=== PATIENT | male | born 1965 | race African-American/Black ===

== ENCOUNTER 2020-06-16 06:27 | Outpatient (REF) | payer MEDICARE, MEDICAID, SELFPAY ==
[2020-06-16 07:07] LABS: Basophils Percent Auto 0.5 % (0-2); Eosinophils Absolute Auto 0.2 X10*3/uL (0.0-0.4); Eosinophils Percent Auto 2.6 % (0-4); Hematocrit 39.4 % (42-52); Imm Gran Abs Auto 0.01 X10*3/uL (0.00-0.03); Imm Gran Pct Auto 0.2 % (0.0-0.4); Immature Retic Fraction 5.5 % (2.3-13.4); Lymphocytes Absolute Auto 1.7 X10*3/uL (1.2-4.9); Lymphocytes Percent Auto 29.3 % (20-40); MANUAL DIFF FLAG NO; Mean Corpuscular Hemoglobin 28.1 pg (27.0-33.0); Mean Corpuscular Volume 85.3 fL (80-98); Mean Platelet Volume 11.1 fL (9.4-12.4); Monocytes Absolute Auto 0.5 X10*3/uL (0.1-1.2); Monocytes Percent Auto 9.3 % (2-11); Neutrophils Absolute Auto 3.3 X10*3/uL (2.0-8.3); Neutrophils Percent Auto 58.1 % (45-73); Platelet Count 204 X10*3/uL (160-400); Red Blood Count 4.62 X10*6/uL (4.60-5.80); Red Cell Distribution Width 14.3 % (11.0-16.0); Retic HGB Equivalent 31.4 pg (30.0-35.0); Reticulocyte Percent 1.4 % (0.5-1.8); Reticulocytes Absolute 0.062 X10*6/uL (0.026-0.095); White Blood Count 5.7 X10*3/uL (4.8-10.8)
[2020-06-16 07:33] LABS: Alanine Aminotransferase 10 U/L (0-40); Albumin Level 4.1 g/dL (3.5-5.0); Alkaline Phosphatase 152 U/L (39-117); Anion Gap 10 (12-20); Aspartate Amino Transferase 12 U/L (5-37); Bilirubin Total 0.6 mg/dL (0.0-1.0); Blood Urea Nitrogen 15 mg/dL (9-16); Calcium 8.4 mg/dL (8.4-10.2); Carbon Dioxide 29 mmol/L (22-29); Chloride 107 mmol/L (96-108); Cholesterol 212 mg/dL; Estimated Glomerular Filt Rate > 60; Glucose Random 103 mg/dL (60-115); HDL Cholesterol 42 mg/dL; LDL Cholesterol Calculated 147 mg/dl; Potassium 3.7 mmol/l (3.3-5.1); Sodium 142 mmol/L (135-145); Total Protein 7.1 g/dL (6.5-8.0); Triglycerides 117 mg/dL
[2020-06-16 07:54] LABS: Free T4 (Free Thyroxine) 0.99 ng/dL (0.71-1.85); Thyroid Stimulating Hormone 1.56 mIU/mL (0.32-4.0)
[2020-06-16 14:55] LABS: Folate 11.1 ng/mL (> or = 4.0); Vitamin B12 664 pg/mL (200-900)
[2020-06-17 11:52] LABS: Creatinine Urine 41.57 mg/dL; Microalbumin Urine < 5.0 mg/L
== END 2020-06-16 06:28 | disposition home or self-care (01) ==
LOC: HO.LAB 06:27
PROVIDERS: Visit Provider Internal Medicine
DX: E78.00 Pure hypercholesterolemia, unspecified (principal); E11.65 Type 2 diabetes mellitus with hyperglycemia; G40.909 Epilepsy, unspecified, not intractable, without status epilepticus
CPT/HCPCS: 36415; 80053; 80061; 80185; 82043; 82607; 82746; 84439; 84443; 85025; 85045

== ENCOUNTER 2020-06-20 13:19 | Emergency (ER) | payer MEDICARE, MEDICAID, SELFPAY ==
--- NOTE | 2020-06-20 14:38 | PC.NURSE ---
SEEN BY PROVIDER AT THIS TIME
[2020-06-20 14:41] VITALS: BP 148/79; PULSE 89; RESP 16; TEMP 36.6; O2SAT 98; BMI 42.0
--- NOTE | 2020-06-20 14:52 | CT_ITS ---
EXAMINATION: CT HEAD WITHOUT CONTRAST CLINICAL INFORMATION: Left eye blurry vision for 3 days. COMPARISON: Multiple prior studies including CT head 07/13/2018, 02/17/2017, 03/16/2012 TECHNIQUE: Contiguous axial imaging was performed from the skull base to vertex without intravenous administration of contrast. Coronal and sagittal reformatted images are performed at CT scanner. This CT examination was performed using dose optimization techniques as appropriate, variously including the following: *Automated exposure control *Adjustment of mA and/or kV according to patient size (this includes techniques or standardized protocols for targeted exams where dose is matched to indication/reason for exam; i.e. extremities or head) *Use of iterative reconstruction technique DLP: 895 mGy-cm FINDINGS: Stable chronic changes of dilatation of the lateral ventricles, right greater than left. Dilatation of the third ventricle. Right parietal-occipital approach ventriculostomy catheter in place unchanged in position in the right lateral ventricle and terminating superiorly adjacent to the parenchyma. There is no evidence of acute intracranial hemorrhage or acute territorial infarction. No abnormal mass effect or midline shift is seen. Corado to white matter differentiation is well preserved. No extra-axial fluid collections are identified. No acute osseous abnormality. The mastoid air cells and visualized portions of the paranasal sinuses are well aerated. CT/CT head/brain wo con IMPRESSION: 1. No acute intracranial pathology. 2. Chronic changes of ventriculomegaly and ventricular shunt catheter in place.
--- NOTE | 2020-06-20 15:03 | ED_ITS ---
HPI - Eye Problem General Chief complaint: Eye Problems Stated complaint: eye pain, vision problem Time Seen by Provider: 06/20/20 14:52 Source: patient and family Mode of arrival: ambulatory Limitations: altered mental status History of Present Illness HPI Narrative: 54 year old male brought into ER by his sister today with 3 days h/o left eye blurriness. Denies any recent injury or trauma, no headaches. He does wear glasses, states when he puts them on now his vision is worse. His sister confirms last seizure activity was > 1 month ago, no vision changes then. MD chief complaint: vision change (LEFT eye blurriness) Onset (ago): day(s) (3) Onset description: unknown Duration: constant Location: left eye Eye Symptoms: blurry vision Place: home Mechanism: none Severity: moderate Severity scale (1-10): 6 Associated symptoms: none Treatments Prior to Arrival: none Related Data Home Medications Medication Instructions Recorded Confirmed cholecalciferol (vitamin D3) 1,250 1,250 mcg PO QWEEK 06/12/20 06/16/20 mcg (50,000 unit) capsule lacosamide 200 mg tablet 200 mg PO BID 06/12/20 06/16/20 meloxicam 15 mg tablet 15 mg PO DAILY 06/12/20 06/16/20 phenobarbital 97.2 mg tablet 97.2 mg PO DAILY PRN 06/12/20 06/16/20 Previous Rx's Medication Instructions Recorded cyanocobalamin (vitamin B-12) 1,000 mcg IM .once a month 90 Days 06/12/20 1,000 mcg/mL injection solution #3 ml phenytoin sodium extended 30 mg 90 mg PO TID 30 Days #270 cap 06/16/20 capsule Allergies Allergy/AdvReac Type Severity Reaction Status Date / Time No Known Allergies Allergy Verified 06/11/20 11:19 [No Known Allergies*] Review of Systems Constitutional: Constitutional: Reports fever(s) (subjective), Denies headache(s) and Denies weakness Eyes: Eyes: Reports as per HPI, Reports blurry vision (LEFT Eye) and Denies eye pain ENT: Reports Normal hearing present, Denies headache(s) and Denies sore throat Cardiovascular: Cardiovascular: Denies chest pain, Denies palpitations and Denies dyspnea Respiratory: Respiratory: Denies chest congestion, Denies cough, Denies dyspnea and Denies wheezing Gastrointestinal: Gastrointestinal: Denies abdominal pain, Denies change in bowel habits, Denies constipation, Denies diarrhea, Denies nausea and Denies vomiting Genitourinary: Genitourinary: Denies dysuria, Denies flank pain, Denies urinary frequency and Denies urinary incontinence Musculoskeletal: Musculoskeletal: Denies back pain, Denies myalgias and Denies muscle weakness Integumentary/Breasts: Skin/Breast: Denies change in hair, Denies pruritus, Denies erythema, Denies rash, Denies unusual bruising and Denies wounds Neurologic: Reports Normal hearing present, Reports Abnormal speech present, Denies headache(s), Denies memory loss, Denies paresthesias, Denies tremor(s) and Denies weakness Psychiatric: Psychiatric: Denies anxiety, Denies depression, Denies irritability and Denies memory loss Endocrine: Endocrine: Denies change in body appearance and Denies palpitations Hematologic/Lymphatic: Hematologic/Lymphatic: Denies easy bleeding, Denies easy bruising and Denies lymphadenopathy Allergic/Immunologic: Allergic/Immunologic: Denies wheezing PMFSH Past Medical History Medical History (Updated 06/20/20 @ 16:30 by NALDO Valencia) Aspiration into airway History of CVA (cerebrovascular accident) History of meningitis Hypercholesterolemia Mental and behavioral problem Obesity Obstructive sleep apnea Seizure disorder Thyroid nodule Tubular adenoma of colon Umbilical hernia Vitamin D deficiency Surgical History (Updated 06/11/20 @ 11:19 by Cheryl Javier [facility]) History of brain surgery History of lung surgery Social History Social History Advance Directives: No Advance Directives Information Provided: Yes Physical Exam Vital Signs: Vital Signs: Last Vital Signs Temp 97.9 F 06/20/20 14:41 Pulse 89 06/20/20 14:41 Resp 16 06/20/20 14:41 BP 148/79 H 06/20/20 14:41 Pulse Ox 98 06/20/20 14:41 Body Mass Index 42.0 Const: General: cooperative, healthy appearing, comfortable, no acute distres s, well developed, alert, awake and well groomed Nutritional Appearance: obese Orientation/consciousness: oriented to person Limitations: altered mental status and other limitations (Left sided weakness from CVA years ago) HENMT: Head: Yes normal to inspection Ears: hearing grossly normal bilaterally, external ears normal, TM's normal bilaterally, mastoids normal and other (FROM MASS NOTED AT TMJ AREA, TENDER TO PALPATION. NO ERYTHEMA, NO DRAINAGE) Eyes: Alignment and Position: alignment normal and position normal Periorbital: periorbital findings normal Eyelids: Yes eyelids normal Conjunctivae: conjunctivae normal Sclerae: sclerae normal Corneas: corneas normal Pupils: Other pupil findings (White pupil. Is reactive to iight) EOM: No Nystagmus present Neck: Neck: Yes normal visual inspection and Yes no lymphadenopathy Thyroid: Thyroid normal Lymphatic: no lymphadenopathy noted Chest: Chest palpation & inspection: normal inspection of the chest and normal palpation of entire chest wall Resp: Effort & Inspection: normal respiratory effort and able to speak in complete sentences Auscultation: clear to auscultation bilaterally, no crackles, no rales, no rhonchi and no wheezes Cardio: Rate: regular rate Rhythm: regular rhythm GI: Inspection: Yes normal to inspection : General: Yes no CVA tenderness Back/Spine/Pelvis: Back: no CVA tenderness Cervical Spine: normal cervical lordosis and cervical ROM normal Thoracic/Lumbar Spine: thoracic and lumbar spine normal to inspection Skin: General skin exam: no rashes or lesions noted Lesions: no lesions Rashes: no rashes Neuro: General: oriented to person Cranial nerves: Yes Normal hearing present and No Nystagmus present Cognition (Neuro): normal cognition Speech: Abnormal speech present Gait exam (Neuro): Normal gait present Motor exam (neuro): 5/5 motor strength present throughout Sensory Exam: Normal double simultaneous stimulation for sensation Extrem: General: Yes normal to inspection and Yes no pedal edema Psych: Appearance: grossly normal Mental Status: mental status grossly normal Speech and movement: Normal speech and movement present Affect: normal affect Attitude: cooperative Thought process: Normal thought process present Thought content: Normal thought content present Insight: Good insight present (Psych) Judgement: Good judgement present (Psych) Course Course Course Narrative: Reviewed case with my attending today, Dr. merino examined patient as well to confirm findings. Will page Dr. Guevara for consult. Reevaluation(s) Reevaluation #1: eye pressures done, pressure is 6, discussed with Dr. Marquze MDM - Eye Problem MDM Narrative Medical decision making narrative: 54 year old man comes into ER accompanied by his sister with a 3 days h/o left eye blurry vision Differential Diagnosis Differential diagnosis: Likely corneal abrasion Medical Records Attestation: I reviewed the patient's medical records. Imaging Data CT scan - head: Radiologist's impression: [address] [address] [address] Scan Report Signed Patient: Michael Lowery#: [id number] : 1965Acct:[id number] Age/Sex: 54 / MADM Date: 06/20/20 Loc: HO.ED Attending Dr: Ordering Physician: JALEN MELLO Date of Service: 06/20/20 Procedure(s): CT head/brain wo con Accession Number(s): [id number] cc: JALEN MELLO~ EXAMINATION: CT HEAD WITHOUT CONTRAST CLINICAL INFORMATION: Left eye blurry vision for 3 days. COMPARISON: Multiple prior studies including CT head 07/13/2018, 02/17/2017, 03/16/2012 TECHNIQUE: Contiguous axial imaging was performed from the skull base to vertex without intravenous administration of contrast. Coronal and sagittal reformatted images are performed at CT scanner. This CT examination was performed using dose optimization techniques as appropriate, variously including the following: *Automated exposure control *Adjustment of mA and/or kV according to patient size (this includes techniques or standardized protocols for targeted exams where dose is matched to indication/reason for exam; i.e. extremities or head) *Use of iterative reconstruction technique DLP: 895 mGy-cm FINDINGS: Stable chronic changes of dilatation of the lateral ventricles, right greater than left. Dilatation of the third ventricle. Right parietal-occipital approach ventriculostomy catheter in place unchanged in position in the right lateral ventricle and terminating superiorly adjacent to the parenchyma. There is no evidence of acute intracranial hemorrhage or acute territorial infarction. No abnormal mass effect or midline shift is seen. Corado to white matter differentiation is well preserved. No extra-axial fluid collections are identified. No acute osseous abnormality. The mastoid air cells and visualized portions of the paranasal sinuses are well aerated. CT/CT head/brain wo con IMPRESSION: 1. No acute intracranial pathology. 2. Chronic changes of ventriculomegaly and ventricular shunt catheter in place. Dictated By:TIMOTEO TRUJILLO MD Signed By:<Electronically signed by TIMOTEO TRUJILLO MD in OV>06/20/20 1529 DD/ 1452 TD/TT: Property Adjuster: SARAH Discharge Plan Discharge Clinical Impression: Leukocoria of left eye Patient Disposition: Home, Self-Care Instructions: Blurred Vision (ED) Additional Instructions: Follow up with Eye Doctor on Prescriptions: No Action cyanocobalamin (vitamin B-12) 1,000 mcg/mL solution 1,000 mcg IM .once a month 90 Days Qty: 3 RF: 1 Dilantin 30 mg capsule 90 mg PO TID 30 Days Qty: 270 RF: 0 meloxicam 15 mg tablet 15 mg PO DAILY RF: 0 cholecalciferol (vitamin D3) 1,250 mcg (50,000 unit) capsule 1,250 mcg PO QWEEK RF: 0 phenobarbital 97.2 mg tablet 97.2 mg PO DAILY PRNRF: 0 Vimpat 200 mg tablet 200 mg PO BID RF: 0 Referrals: Dick Betts [Physician] - 2 days (Call for appointment on Monday, Diagnosis Leukocoria)
--- NOTE | 2020-06-20 15:37 | PC.NURSE ---
CALL PLACED TO DR ACKERMAN ATTEMPTED TO CALL [facility] WITHOUT SUCESS AND CALL HIS CELL NUMBER PER NALDO MELLO.
--- NOTE | 2020-06-20 16:35 | PC.NURSE ---
NALDO MELLO SPOKE WITH DEXTER AND PT WILL F/U IN OFFICE ON MONDAY. NALDO MELLO CHECK PRESSURE OF LEFT EYE AND IT WAS 6.
== END 2020-06-20 16:56 | disposition home or self-care (01) ==
PROVIDERS: Emergency Provider Emergency Medicine; PCP Internal Medicine
DX: H44.532 Leucocoria, left eye (principal); H57.13 Ocular pain, bilateral; Z79.899 Other long term (current) drug therapy
CPT/HCPCS: 70450; 99283

== ENCOUNTER 2020-07-07 08:51 | Outpatient (REF) | payer MEDICARE, MEDICAID, SELFPAY ==
--- NOTE | 2020-07-07 09:06 | XR_ITS ---
EXAMINATION: XR LEFT ELBOW AND LEFT HAND CLINICAL INFORMATION: Pain. COMPARISON: None. TECHNIQUE: Left elbow 3 views. Left hand 3 views. FINDINGS: Left Elbow: There is no visible fracture, dislocation or subluxation. No joint effusion seen. The soft tissues are normal. Left Hand: There is mild reduction in the PIP and DIP joint spaces of all digits. The MCP joint space is preserved. There is mild extension deformity DIP joint 4th digit. Mild periarticular spurring is seen in the PIP joints 1st through 5th digits. No acute fracture or dislocation seen. There is a nondisplaced vertical fracture distal 5th metacarpal. The soft tissues are normal. XR/XR hand LT min 3V IMPRESSION: Nondisplaced fracture left distal 5th metacarpal. Mild degenerative changes PIP and DIP joints left hand. Unremarkable left elbow exam.
--- NOTE | 2020-07-07 09:06 | XR_ITS ---
EXAMINATION: XR LEFT ELBOW AND LEFT HAND CLINICAL INFORMATION: Pain. COMPARISON: None. TECHNIQUE: Left elbow 3 views. Left hand 3 views. FINDINGS: Left Elbow: There is no visible fracture, dislocation or subluxation. No joint effusion seen. The soft tissues are normal. Left Hand: There is mild reduction in the PIP and DIP joint spaces of all digits. The MCP joint space is preserved. There is mild extension deformity DIP joint 4th digit. Mild periarticular spurring is seen in the PIP joints 1st through 5th digits. No acute fracture or dislocation seen. There is a nondisplaced vertical fracture distal 5th metacarpal. The soft tissues are normal. XR/XR elbow LT min 3V IMPRESSION: Nondisplaced fracture left distal 5th metacarpal. Mild degenerative changes PIP and DIP joints left hand. Unremarkable left elbow exam.
== END 2020-07-07 08:52 | disposition home or self-care (01) ==
LOC: HO.XRAY 08:51
PROVIDERS: PCP Internal Medicine; Visit Provider Internal Medicine
DX: M79.89 Other specified soft tissue disorders (principal)
CPT/HCPCS: 73080; 73130

== ENCOUNTER 2020-07-27 13:05 | Outpatient (REF) | payer MEDICARE, MEDICAID, SELFPAY ==
--- NOTE | 2020-07-27 13:13 | US_ITS ---
EXAMINATION: DOPPLER ULTRASOUND LEFT UPPER EXTREMITY. CLINICAL INFORMATION: Swelling, status post fall COMPARISON: None TECHNIQUE: Doppler ultrasound left upper extremity. FINDINGS: The left internal jugular, subclavian, axillary, brachial, cephalic, basilic veins appear patent without evidence of thrombosis. There is normal vascular flow without evidence of filling defects. The visualized radial and ulnar veins appear patent with no evidence of thrombosis. US/US venous duplex UE LT IMPRESSION: No evidence of deep vein thrombosis in the left upper extremity.
== END 2020-07-27 13:06 | disposition home or self-care (01) ==
LOC: HO.US 13:05
PROVIDERS: Visit Provider Internal Medicine
DX: R60.0 Localized edema (principal); R09.89 Other specified symptoms and signs involving the circulatory and respiratory systems; M79.89 Other specified soft tissue disorders; W19.XXXA Unspecified fall, initial encounter
CPT/HCPCS: 93971

== ENCOUNTER 2020-09-20 14:47 | Emergency (ER) | payer MEDICARE, MEDICAID, SELFPAY ==
--- NOTE | ~2020-09-20 | CT_ITS ---
EXAMINATION: CT ABDOMEN AND PELVIS WITH CONTRAST CLINICAL INFORMATION: Right flank pain. Kidney stones? Gallstones? Appendicitis? COMPARISON: 11/01/2017 TECHNIQUE: Multidetector volumetric images were obtained from the superior aspect of the liver through the pubic symphysis following administration 85 mL of Omnipaque 350 intravenous contrast. Sagittal and coronal reformatted images were obtained on the technologist's workstation. Oral contrast: No This CT examination was performed using dose optimization techniques as appropriate, variously including the following: *Automated exposure control *Adjustment of mA and/or kV according to patient size (this includes techniques or standardized protocols for targeted exams where dose is matched to indication/reason for exam; i.e. extremities or head) *Use of iterative reconstruction technique DLP: 1048 mGy-cm FINDINGS: There is respiratory motion throughout the study limiting evaluation. There is streak artifact not only from the patient's arms across his abdomen but from the metal in his watch. LUNG BASES: There is atelectasis at the lung bases. Borderline cardiomegaly. LIVER, GALLBLADDER, AND BILIARY TREE: The liver is normal in size, shape, and attenuation. No focal hepatic lesion or biliary ductal dilatation is present. Gallbladder is collapsed. No biliary ductal dilatation. PANCREAS: Unremarkable. SPLEEN: Unremarkable. ADRENAL GLANDS: Unremarkable. KIDNEYS AND URETERS: Symmetric bilateral renal enhancement. No hydronephrosis. There is slight prominence of the ureters, right greater than left but no obstructing calculus seen. BLADDER: Unremarkable. GASTROINTESTINAL TRACT: Stomach and small bowel are nondilated. Normal appendix. No evidence of colitis or diverticulitis. ABDOMINAL WALL: Fat-containing bilateral inguinal hernias. Small fat-containing umbilical hernia. LYMPH NODES: Normal. VASCULAR: Unremarkable. PELVIC VISCERA: The prostate and seminal vesicles are unremarkable. OSSEOUS STRUCTURES: Multilevel degenerative changes with degenerative disc disease and multilevel facet arthropathy. Right greater than left degenerative changes of the sacroiliac joints. CT/CT abdomen pelvis w con IMPRESSION: No acute CT findings.
[2020-09-20 14:51] VITALS: BP 145/67; PULSE 82; RESP 16; TEMP 36.8; O2SAT 99; BMI 40.7
[2020-09-20 16:54] LABS: MANUAL DIFF FLAG NO
[2020-09-20 16:57] LABS: Basophils Absolute Auto 0.1 X10*3/uL (0.0-0.2); Basophils Percent Auto 0.7 % (0-2); Eosinophils Absolute Auto 0.2 X10*3/uL (0.0-0.4); Hematocrit 41.3 % (42-52); Hemoglobin 13.2 g/dl (14.0-18.0); Imm Gran Abs Auto 0.02 X10*3/uL (0.00-0.03); Imm Gran Pct Auto 0.2 % (0.0-0.4); Lymphocytes Absolute Auto 2.1 X10*3/uL (1.2-4.9); Lymphocytes Percent Auto 25.8 % (20-40); Mean Corpuscular Hemoglobin 27.7 pg (27.0-33.0); Mean Corpuscular Volume 86.6 fL (80-98); Monocytes Absolute Auto 0.7 X10*3/uL (0.1-1.2); Monocytes Percent Auto 8.6 % (2-11); Neutrophils Absolute Auto 4.9 X10*3/uL (2.0-8.3); Neutrophils Percent Auto 61.7 % (45-73); Platelet Count 221 X10*3/uL (160-400); Red Blood Count 4.77 X10*6/uL (4.60-5.80)
[2020-09-20 17:21] LABS: Alanine Aminotransferase 11 U/L (0-40); Alkaline Phosphatase 140 U/L (39-117); Anion Gap 13 (12-20); Aspartate Amino Transferase 13 U/L (5-37); Bilirubin Direct < 0.2 mg/dL (0.0-0.5); Bilirubin Total 0.2 mg/dL (0.0-1.0); Blood Urea Nitrogen 16 mg/dL (9-16); Calcium 8.4 mg/dL (8.4-10.2); Carbon Dioxide 27 mmol/L (22-29); Chloride 107 mmol/L (96-108); Creatinine Clr Calc Pharmacy 114.3; Estimated Glomerular Filt Rate > 60; Glucose Random 119 mg/dL (60-115); Lipase 35 U/L (8-78); Potassium 3.7 mmol/L (3.3-5.1); Sodium 143 mmol/L (135-145)
[2020-09-20 18:00] VITALS: BP 149/70; PULSE 70; RESP 16; O2SAT 99
[2020-09-20] MEDS: 0.9 % Sodium Chloride 1,000 ML 999 ML IV (18:30)
--- NOTE | 2020-09-20 19:04 | ED.ABDPAIN ---
HPI - Abdominal Pain General Chief Complaint: Abdominal Pain Stated Complaint: ABD PAIN Time Seen by Provider: 09/20/20 17:56 Source: patient Mode of arrival: ambulatory Limitations: no limitations History of Present Illness HPI narrative: Patient presents to ED for right flank/right lower back pain the past 3 days. Sister states patient has had this problem for years and always tell her just muscular. Sister was a derrick barge operator of patient denies patient having any nausea, vomiting, fever, chills, dysuria, hematuria, dizziness, any recent trauma. MD elicited complaint: flank pain Related Data Home Medications Medication Instructions Recorded Confirmed cholecalciferol (vitamin D3) 1,250 1,250 mcg PO QWEEK 06/12/20 09/18/20 mcg (50,000 unit) capsule lacosamide 200 mg tablet 200 mg PO BID 06/12/20 09/18/20 meloxicam 15 mg tablet 15 mg PO DAILY 06/12/20 09/18/20 phenobarbital 97.2 mg tablet 97.2 mg PO DAILY PRN 06/12/20 09/18/20 Previous Rx's Medication Instructions Recorded cyanocobalamin (vitamin B-12) 1,000 mcg IM .once a month 90 Days 06/12/20 1,000 mcg/mL injection solution #3 ml phenytoin sodium extended 30 mg 90 mg PO TID 90 Days #810 cap 09/14/20 capsule hydrocortisone 2.5 % topical cream 1 appl MI BID-QID PRN #30 g 09/18/20 with perineal applicator omeprazole 20 mg capsule,delayed 20 mg PO DAILY #30 cap 09/18/20 release meloxicam 15 mg PO DAILY PRN 30 Days #30 tab 09/20/20 Allergies Allergy/AdvReac Type Severity Reaction Status Date / Time No Known Allergies Allergy Verified 09/07/20 09:03 [No Known Allergies*] Review of Systems Review of Systems Yes all other systems are reviewed and are negative Constitutional: Reports as per HPI and Reports no additional constitutional complaints Eyes: Reports as per HPI and Reports no additional eye complaints Reports system reviewed and no additional complaints, except as documented and Reports as per HPI Cardiovascular: Reports as per HPI and Reports no additional cardiovascular complaints Respiratory: Reports as per HPI and Reports no additional respiratory complaints Gastrointestinal: Reports as per HPI and Reports no additional gastrointestinal complaints Comments: Right flank/back pain Genitourinary: Reports no additional male genitourinary complaints and Reports as per HPI Musculoskeletal: Reports no additional musculoskeletal complaints and Reports as per HPI Comments: Back pain Reports system reviewed and no additional complaints, except as documented and Reports as per HPI Psychiatric: Reports no additional psychiatric complaints and Reports as per HPI Physical Exam Vital Signs: Vital Signs: Last Vital Signs Temp 98.2 F 09/20/20 14:51 Pulse 77 09/20/20 21:08 Resp 16 09/20/20 21:08 BP 140/73 H 09/20/20 21:08 Pulse Ox 99 09/20/20 21:08 Body Mass Index 40.7 Const: General: cooperative, healthy appearing, comfortable, no acute distress, well developed, alert, awake and Physically active Orientation/consciousness: patient oriented x3 HENMT: Head: Yes normal to inspection, Yes No palpable skull fracture present, Yes normocephalic, Yes atraumatic, No abrasion, No Sharma's sign, No contusion, No cranial bruits, No hematoma, No laceration, No occipital foramen tenderness, No palpable skull fracture, No raccoon eyes, No scalp tenderness, No Temporal artery tenderness present and No periorbital ecchymosis Eyes: General: appearance normal, both eyes and all related structures Neck: Neck: Yes normal visual inspection, Yes full ROM, Yes no lymphadenopathy, Yes no meningeal signs, Yes supple and No tender Chest: Chest palpation & inspection: normal inspection of the chest and normal palpation of entire chest wall Resp: Effort & Inspection: normal respiratory effort and able to speak in complete sentences Auscultation: clear to auscultation bilaterally Cardio: Jugular venous distension: no JVD Heart sounds: S1 normal heart sound present and S2 normal heart sound present GI: Inspection: Yes normal to inspection and No abdominal wall ecchymosis Palpation (GI): Soft to palpation, not firm, nontender, no guarding and not rigid : General: No CVA tenderness and Yes no CVA tenderness Back/Spine/Pelvis: Back: no CVA tenderness, No CVA tenderness and back tenderness (Right lumbar) Skin: General skin exam: no rashes or lesions noted and elasticity normal Neuro: General: patient oriented x3, no meningeal signs and CN's II-XI intact bilaterally Cranial nerves: Yes CN's II-XII intact bilaterally Extrem: General: Yes normal to inspection and Yes full ROM Psych: Appearance: grossly normal, well kempt and not disheveled Course Course Course Narrative: Patient to have labs and abdominal CT to make sure there is no medical/surgical emergent etiology. Reevaluation(s) Reevaluation #1: Patient labs came back normal and at baseline. Patient CT scan does not show any acute findings. CT scan abdomen shows severe arthritis of the spine which contributes to patient's radiating right lower back flank pain. Patient given Tylenol and Flexeril for oral pain. Sister asked for refill of patient's meloxicam which was finished. History of tics patient usually takes meloxicam for his arthritic pain Time: 21:08 MDM - Abdominal Pain MDM Narrative Medical decision making narrative: Lumbar radicular passing Lab Data Result diagrams: 09/20/20 16:43 09/20/20 16:43 Labs: Lab Results 09/20/20 09/20/20 09/20/20 Range/Units 16:43 16:43 16:43 WBC 8.0 (4.8-10.8) X10*3/uL RBC 4.77 (4.60-5.80) X10*6/uL Hgb 13.2 L (14.0-18.0) g/dl Hct 41.3 L (42-52) % MCV 86.6 (80-98) fL MCH 27.7 (27.0-33.0) pg MCHC 32.0 (31.0-36.0) g/dl RDW 14.0 (11.0-16.0) % Plt Count 221 (160-400) X10*3/uL MPV 11.0 (9.4-12.4) fL Immature Gran % (Auto) 0.2 (0.0-0.4) % Neut % (Auto) 61.7 (45-73) % Lymph % (Auto) 25.8 (20-40) % [place] % (Auto) 8.6 (2-11) % Eos % (Auto) 3.0 (0-4) % Baso % (Auto) 0.7 (0-2) % Lymph # (Auto) 2.1 (1.2-4.9) X10*3/uL [place] # (Auto) 0.7 (0.1-1.2) X10*3/uL Eos # (Auto) 0.2 (0.0-0.4) X10*3/uL Baso # (Auto) 0.1 (0.0-0.2) X10*3/uL Abs Immat Gran (auto) 0.02 (0.00-0.03) X10*3/uL Absolute Neuts (auto) 4.9 (2.0-8.3) X10*3/uL Absolute Nucleated RBC 0.000 (0.0-0.012) X10*3/uL Nucleated RBC % (auto) 0.0 (0.0-0.2) /100WBC Hold Blue Top SEE NOTE Sodium 143 (135-145) mmol/L Potassium 3.7 (3.3-5.1) mmol/L Chloride 107 (96-108) mmol/L Carbon Dioxide 27 (22-29) mmol/L Anion Gap 13 (12-20) BUN 16 (9-16) mg/dL Creatinine 0.86 (0.5-1.4) mg/dL Estim Creat Clear Calc 114.3 Estimated GFR > 60 Random Glucose 119 H (60-115) mg/dL Calcium 8.4 (8.4-10.2) mg/dL Total Bilirubin 0.2 (0.0-1.0) mg/dL Direct Bilirubin < 0.2 (0.0-0.5) mg/dL AST 13 (5-37) U/L ALT 11 (0-40) U/L Alkaline Phosphatase 140 H (39-117) U/L Total Protein 7.0 (6.5-8.0) g/dL Albumin 4.0 (3.5-5.0) g/dL Lipase 35 (8-78) U/L Urine Color Urine Appearance Urine pH (5.0-8.0) Ur Specific [place] (1.005-1.025) Urine Protein (NEG-TRACE) MG/DL Urine Glucose (UA) (NEG) MG/DL Urine Ketones (NEG) MG/DL Urine Blood (NEG) Urine Nitrite (NEG) Ur Leukocyte Esterase (NEG) 09/20/20 Range/Units 19:38 WBC (4.8-10.8) X10*3/uL RBC (4.60-5.80) X10*6/uL Hgb (14.0-18.0) g/dl Hct (42-52) % MCV (80-98) fL MCH (27.0-33.0) pg MCHC (31.0-36.0) g/dl RDW (11.0-16.0) % Plt Count (160-400) X10*3/uL MPV (9.4-12.4) fL Immature Gran % (Auto) (0.0-0.4) % Neut % (Auto) (45-73) % Lymph % (Auto) (20-40) % [place] % (Auto) (2-11) % Eos % (Auto) (0-4) % Baso % (Auto) (0-2) % Lymph # (Auto) (1.2-4.9) X10*3/uL [place] # (Auto) (0.1-1.2) X10*3/uL Eos # (Auto) (0.0-0.4) X10*3/uL Baso # (Auto) (0.0-0.2) X10*3/uL Abs Immat Gran (auto) (0.00-0.03) X10*3/uL Absolute Neuts (auto) (2.0-8.3) X10*3/uL Absolute Nucleated RBC (0.0-0.012) X10*3/uL Nucleated RBC % (auto) (0.0-0.2) /100WBC Hold Blue Top Sodium (135-145) mmol/L Potassium (3.3-5.1) mmol/L Chloride (96-108) mmol/L Carbon Dioxide (22-29) mmol/L Anion Gap (12-20) BUN (9-16) mg/dL Creatinine (0.5-1.4) mg/dL Estim Creat Clear Calc Estimated GFR Random Glucose (60-115) mg/dL Calcium (8.4-10.2) mg/dL Total Bilirubin (0.0-1.0) mg/dL Direct Bilirubin (0.0-0.5) mg/dL AST (5-37) U/L ALT (0-40) U/L Alkaline Phosphatase (39-117) U/L Total Protein (6.5-8.0) g/dL Albumin (3.5-5.0) g/dL Lipase (8-78) U/L Urine Color YELLOW Urine Appearance CLEAR Urine pH 6.0 (5.0-8.0) Ur Specific [place] 1.020 (1.005-1.025) Urine Protein NEG (NEG-TRACE) MG/DL Urine Glucose (UA) NEG (NEG) MG/DL Urine Ketones 5 (NEG) MG/DL Urine Blood NEG (NEG) Urine Nitrite NEG (NEG) Ur Leukocyte Esterase NEG (NEG) Discharge Plan Discharge Clinical Impression: Degenerative disc disease, Arthritis Patient Disposition: Home, Self-Care Instructions: Lumbar Radiculopathy (ED), Degenerative Disc Disease (ED) Additional Instructions: Return to ED for worsening abdominal/back pain, urinary/bowel incontinence, fever, chills, chest pain, shortness of breath, dysuria, hematuria, or any other concerning symptoms. Prescriptions: New meloxicam 15 mg tablet 15 mg PO DAILY PRN (Reason: pain) 30 Days Qty: 30 RF: 0 No Action cyanocobalamin (vitamin B-12) 1,000 mcg/mL solution 1,000 mcg IM .once a month 90 Days Qty: 3 RF: 1 phenytoin sodium extended [Dilantin] 30 mg capsule 90 mg PO TID 90 Days Qty: 810 RF: 2 meloxicam 15 mg tablet 15 mg PO DAILY RF: 0 cholecalciferol (vitamin D3) 1,250 mcg (50,000 unit) capsule 1,250 mcg PO QWEEK RF: 0 phenobarbital 97.2 mg tablet 97.2 mg PO DAILY PRNRF: 0 Vimpat 200 mg tablet 200 mg PO BID RF: 0 hydrocortisone [Proctosol HC] 2.5 % cream with perineal applicator 1 appl MI BID-QID PRN (Reason: hemorrhoids) Qty: 30 RF: 0 omeprazole 20 mg capsule,delayed release(DR/EC) 20 mg PO DAILY Qty: 30 RF: 2 Referrals: Po,Veronique Alexander MD [Primary Care Provider] - 2 days (Abdominal CT scan does not show any emergent medical/surgical etiology. CT scan abdomen shows severe degenerative disc disease of the spine) Interventions: ED Discharge Assessment Last Done: 09/20/20 21:31 Discharge Date/Time: 09/20/20 21:33 Print Language: [place] [facility] Past Medical History Medical History Aspiration into airway History of CVA (cerebrovascular accident) History of meningitis Hypercholesterolemia Mental and behavioral problem Obesity Obstructive sleep apnea Seizure disorder Thyroid nodule Tubular adenoma of colon Umbilical hernia Vitamin D deficiency Surgical History History of brain surgery History of lung surgery Family History Family History Father Myocardial infarction Mother Myocardial infarction Maternal Uncle Prostate cancer Brother No problems noted. Sister No problems noted. Social History Social History Alcohol intake: never Smoked in Last 30 Days: No Use of substances other than those prescribed or required for medical reasons: No Advance Directives: No Advance Directives Information Provided: No
[2020-09-20 19:44] LABS: Glucose Urine UA NEG (NEG); Leukocyte Esterase Urine NEG (NEG); Nitrite Urine NEG (NEG); Urine Blood NEG (NEG); Urine Ketones 5 MG/DL (NEG); Urine Protein NEG (NEG-TRACE)
[2020-09-20 19:48] LABS: Appearance Urine CLEAR; Color Urine YELLOW
[2020-09-20] MEDS: iohexoL 350 MG/ML 100 ML INFUS..BTL IV (20:06)
--- NOTE | 2020-09-20 20:57 | PC.NURSE ---
report from dolores at 19:00. pt awake and alert, family member present at bedside.
[2020-09-20 21:08] VITALS: BP 140/73; PULSE 77; RESP 16; O2SAT 99
[2020-09-20] MEDS: Acetaminophen 325 MG TABLET 650 MG PO (21:09)
[2020-09-20] MEDS: Cyclobenzaprine HCl 5 MG TABLET PO (21:09)
== END 2020-09-20 21:33 | disposition home or self-care (01) ==
PROVIDERS: Physician Assistant; Emergency Provider Internal Medicine; PCP Internal Medicine
DX: M51.16 Intervertebral disc disorders with radiculopathy, lumbar region (principal); M47.26 Other spondylosis with radiculopathy, lumbar region
CPT/HCPCS: 36415; 74177; 80048; 80076; 81003; 83690; 85025; 96360; 99284; 99285; Q9967

== ENCOUNTER 2020-09-23 07:06 | Outpatient (REF) | payer MEDICARE, MEDICAID, SELFPAY | END 2020-09-23 07:07 | disposition home or self-care (01) | LOC: HO.LNP 07:06 | PROVIDERS: Visit Provider Internal Medicine | DX: R19.7 Diarrhea, unspecified (principal) | CPT/HCPCS: 87045; 87046 ==

== ENCOUNTER 2020-09-24 06:37 | Outpatient (REF) | payer MEDICARE, MEDICAID, SELFPAY ==
[2020-09-24 07:15] LABS: MANUAL DIFF FLAG NO
[2020-09-24 07:16] LABS: Basophils Percent Auto 0.5 % (0-2); Eosinophils Absolute Auto 0.2 X10*3/uL (0.0-0.4); Eosinophils Percent Auto 4.3 % (0-4); Hematocrit 40.1 % (42-52); Imm Gran Abs Auto 0.01 X10*3/uL (0.00-0.03); Imm Gran Pct Auto 0.2 % (0.0-0.4); Lymphocytes Absolute Auto 1.6 X10*3/uL (1.2-4.9); Lymphocytes Percent Auto 28.4 % (20-40); Mean Corpuscular HGB Conc 32.4 g/dl (31.0-36.0); Mean Corpuscular Hemoglobin 27.5 pg (27.0-33.0); Mean Platelet Volume 11.1 fL (9.4-12.4); Monocytes Absolute Auto 0.5 X10*3/uL (0.1-1.2); Monocytes Percent Auto 8.4 % (2-11); Neutrophils Absolute Auto 3.3 X10*3/uL (2.0-8.3); Neutrophils Percent Auto 58.2 % (45-73); Platelet Count 213 X10*3/uL (160-400); Red Blood Count 4.72 X10*6/uL (4.60-5.80); White Blood Count 5.6 X10*3/uL (4.8-10.8)
[2020-09-24 07:52] LABS: Alanine Aminotransferase 11 U/L (0-40); Albumin Level 4.2 g/dL (3.5-5.0); Alkaline Phosphatase 137 U/L (39-117); Anion Gap 13 (12-20); Aspartate Amino Transferase 14 U/L (5-37); Bilirubin Total 0.4 mg/dL (0.0-1.0); Blood Urea Nitrogen 17 mg/dL (9-16); Calcium 8.8 mg/dL (8.4-10.2); Carbon Dioxide 26 mmol/L (22-29); Chloride 108 mmol/L (96-108); Cholesterol 191 mg/dL; Estimated Glomerular Filt Rate > 60; Glucose Random 95 mg/dL (60-115); HDL Cholesterol 45 mg/dL; Iron 123 mcg/dL (45-160); LDL Cholesterol Calculated 123 mg/dl; Percent Iron Saturation 48 % (15-50); Potassium 3.7 mmol/L (3.3-5.1); Sodium 143 mmol/L (135-145); Total Iron Binding Capacity 255 mcg/dL (228-428); Total Protein 7.2 g/dL (6.5-8.0); Triglycerides 117 mg/dL; Unsaturated Iron Binding 132 ug/dL
[2020-09-24 08:13] LABS: Ferritin 179 ng/mL (20-250); Free T4 (Free Thyroxine) 0.78 ng/dL (0.71-1.85); Thyroid Stimulating Hormone 3.31 uIU/mL (0.32-4.0)
[2020-09-24 08:23] LABS: Phenytoin Dilantin 15.8 ug/mL (10.0-20.0)
[2020-09-24 08:50] LABS: Folate 10.9 ng/mL (> or = 4.0); Vitamin B12 771 pg/mL (200-900)
[2020-09-24 11:29] LABS: CDIFF Ag Negative (Negative); CDIFF Internal ctrl Dots and bkg OK (V); CDiff Toxin Negative (Negative)
[2020-09-24 13:55] LABS: Leukocytes Stool Qualitative NEGATIVE (NEGATIVE)
== END 2020-09-24 06:38 | disposition home or self-care (01) ==
LOC: HO.LAB 06:37
PROVIDERS: Visit Provider Internal Medicine
DX: R19.7 Diarrhea, unspecified (principal); D64.9 Anemia, unspecified; E78.00 Pure hypercholesterolemia, unspecified; G40.909 Epilepsy, unspecified, not intractable, without status epilepticus; E53.8 Deficiency of other specified B group vitamins
CPT/HCPCS: 36415; 80053; 80061; 80185; 82607; 82728; 82746; 83540; 84439; 84443; 85025; 87324; 87449; 89055

== ENCOUNTER 2020-11-28 03:31 | Emergency (ER) | payer MEDICARE, MEDICAID, SELFPAY ==
--- NOTE | ~2020-11-28 | XR_ITS ---
EXAMINATION: CHEST 1 VIEW CLINICAL INFORMATION: Cough, Covid positivity. COMPARISON: 01/21/2020. TECHNIQUE: An AP view of the chest is provided. FINDINGS: The cardiac silhouette is not enlarged. The mediastinal and hilar contours are unremarkable. There are neither pleural effusions nor pneumothoraces. There is faint patchy airspace opacification throughout both lungs. There is stable elevation to the right hemidiaphragm. The osseous structures are stable. XR/XR chest 1V IMPRESSION: Faint patchy nonspecific airspace opacification throughout both lungs.
[2020-11-28 03:37] VITALS: BP 125/78; PULSE 86; RESP 18; TEMP 38.7; O2SAT 100; BMI 30.7
--- NOTE | 2020-11-28 03:56 | PC.NURSE ---
sister and primary caregive with patient in familyroom chargemaster analyst and fransisco graves okayed.
[2020-11-28 04:40] VITALS: RESP 18
[2020-11-28 04:58] LABS: IDNOW Serial# 9DD0AD1C
[2020-11-28 05:02] LABS: COVID-19 Test Positive (Negative)
--- NOTE | 2020-11-28 05:31 | ED.URI ---
HPI - URI/Sore Throat General Chief Complaint: Upper Respiratory Symptoms Stated Complaint: Cough Time Seen by Provider: 11/28/20 03:57 Source: family Mode of arrival: wheelchair Limitations: no limitations History of Present Illness HPI Narrative: Patient comes to emergency room accompanied by his e commerce solution architect. Patient received his 1st dose of COVID on November 18. The e commerce solution architect states that the patient has had increased cough and tonight had fever. Patient states that he feels otherwise well, denies chest pain, no shortness of breath, only complaining of cough. MD elicited complaint: cough Related Data Home Medications Medication Instructions Recorded Confirmed meloxicam 15 mg tablet 15 mg PO DAILY 06/12/20 09/18/20 Previous Rx's Medication Instructions Recorded cyanocobalamin (vitamin B-12) 1,000 mcg IM .once a month 90 Days 06/12/20 1,000 mcg/mL injection solution #3 ml meloxicam 15 mg PO DAILY PRN 30 Days #30 tab 09/20/20 cholecalciferol (vitamin D3) 1,250 1,250 mcg PO QWEEK 84 Days #12 cap 10/30/20 mcg (50,000 unit) capsule hydrocortisone 2.5 % topical cream [address] BID-QID PRN #30 g 10/30/20 with perineal applicator lacosamide 200 mg tablet 200 mg PO BID 60 Days #120 tab 10/30/20 omeprazole 20 mg capsule,delayed 20 mg PO DAILY 30 Days #30 cap 10/30/20 release phenobarbital 97.2 mg tablet 97.2 mg PO DAILY PRN 90 Days #90 10/30/20 tab phenytoin sodium extended 30 mg 90 mg PO TID 90 Days #810 cap 10/30/20 capsule acetaminophen [Tylenol Arthritis 650 mg PO Q8H PRN #14 tab 11/28/20 Pain] azithromycin 250 mg PO DAILY 5 Days #5 tab 11/28/20 prednisone 50 mg PO DAILY #5 tab 11/28/20 Allergies Allergy/AdvReac Type Severity Reaction Status Date / Time No Known Allergies Allergy Verified 09/07/20 09:03 [No Known Allergies*] Review of Systems Review of Systems: Constitutional : No Weight loss, complaining of fever ENT/Mouth : No Hearing loss, No Ear Pain, No Nasal Congestion, No Sinus Pain, No Hoarseness, No sore throat, No Rhinorrhea, No Swallowing Difficulty Eyes: No Eye Pain, No Swelling, No Redness, No Foreign Body, No Discharge, No Vision Changes Cardiovascular : No Chest Pain, No SOB, No Dyspnea on Exertion, No Orthopnea, No Edema, No Palpitations Respiratory : Complaining of worsening cough, No Wheezing, No Smoke Exposure, No Dyspnea Gastrointestinal : No Nausea, No Vomiting, No Diarrhea, No Constipation, No abdominal Pain, No Hematochezia, No Melena Genitourinary : no irregular bleeding, No Dysuria, No Urinary Frequency, No Hematuria, No Urinary Incontinence, No Urgency, No Flank Pain, No Urinary Flow Changes, No Hesitancy Musculoskeletal : No joint pain, No Myalgias, No Joint Swelling Skin : No Skin Lesions, No rash Neuro : No Weakness, No Numbness, No Paresthesias, No Loss of Consciousness, No Dizziness, No Headache Psych : No Anxiety/Panic, No Depression, No SI/HI/AH/VH, No Social Issues, Heme/Lymph: No Bruising, No Bleeding,No Lymphadenopathy Endocrine : No Polyuria, No Polydipsia, No Temperature Intolerance [facility] Past Medical History Medical History Aspiration into airway History of CVA (cerebrovascular accident) History of meningitis Hypercholesterolemia Mental and behavioral problem Obesity Obstructive sleep apnea Seizure disorder Thyroid nodule Tubular adenoma of colon Umbilical hernia Vitamin D deficiency Surgical History History of brain surgery History of lung surgery Family History Family History Father Myocardial infarction Mother Myocardial infarction Maternal Uncle Prostate cancer Brother No problems noted. Sister No problems noted. Social History Social History (Updated 10/30/20 @ 12:45 by Vee Tamayo) Alcohol intake: never Smoking Status: Never smoker Advance Directives: No Physical Exam Vital Signs: Vital Signs: Last Vital Signs Temp 101.6 F H 11/28/20 03:37 Pulse 86 11/28/20 03:37 Resp 18 11/28/20 04:40 BP 125/78 11/28/20 03:37 Pulse Ox 100 11/28/20 03:37 Body Mass Index 30.7 Appearance: Alert. Oriented X3. No acute distress. Eyes: Pupils equal, round and reactive to light. ENT: Pharynx normal. Neck: Normal inspection. Neck supple. No lymph nodes noted. No crepitus CVS: Normal heart rate and rhythm. Pulses normal. Normal S1 and S2 Respiratory: No respiratory distress. Breath sounds normal. No Wheezing. No rales Abdomen: Soft and nontender. No rigidity. No distention. good BS x4 Skin: Skin warm and dry. Normal skin color. Normal skin turgor. Extremities: No lower extremity edema. Wheelchair-bound Neuro: Oriented X 3. No motor deficit. No sensory deficit. Moving all extermities. No slurred speech. Course Course Course Narrative: I discussed the x-ray with the patient and his e commerce solution architect. Patient will be started on oral antibiotics. For being discharged, patient will be walked and oxygen saturation measured. If patient does well, oxygen saturation remains above 90%, patient may be discharged home. Patient will be going home with antibiotics, prednisone and Tylenol. Our techs walk with the patient, his oxygen saturation remained at 97% on room air. Patient denies chest pain or shortness of breath. Patient ready for discharge MDM - URI/Sore Throat Lab Data Labs: Lab Results 11/28/20 Range/Units 04:40 COVID-19 ([facility]) Positive A (Negative) COVID-19 Clin Com See Note Imaging Data Chest x-ray: Radiologist's impression: The cardiac silhouette is not enlarged. The mediastinal and hilar contours are unremarkable. There are neither pleural effusions nor pneumothoraces. There is faint patchy airspace opacification throughout both lungs. There is stable elevation to the right hemidiaphragm. The osseous structures are stable. XR/XR chest 1V IMPRESSION: Faint patchy nonspecific airspace opacification throughout both lung Discharge Plan Discharge Clinical Impression: COVID-19 Patient Disposition: Home, Self-Care Instructions: COVID-19 (Coronavirus Disease 2019) (ED) Additional Instructions: you Need to be isolated for 14 days. Please follow-up with your primary care physician tomorrow. If you have any worsening or new symptoms, please return to the emergency room or call 911 Prescriptions: New azithromycin 250 mg tablet 250 mg PO DAILY 5 Days Qty: 5 RF: 0 prednisone 50 mg tablet 50 mg PO DAILY Qty: 5 RF: 0 acetaminophen [Tylenol Arthritis Pain] 650 mg tablet extended release 650 mg PO Q8H PRN (Reason: fever) Qty: 14 RF: 0 No Action cyanocobalamin (vitamin B-12) 1,000 mcg/mL solution 1,000 mcg IM .once a month 90 Days Qty: 3 RF: 1 meloxicam 15 mg tablet 15 mg PO DAILY PRN (Reason: pain) 30 Days Qty: 30 RF: 0 meloxicam 15 mg tablet 15 mg PO DAILY RF: 0 cholecalciferol (vitamin D3) 1,250 mcg (50,000 unit) capsule 1,250 mcg PO QWEEK 84 Days Qty: 12 RF: 0 hydrocortisone [Proctosol HC] 2.5 % cream with perineal applicator [address] BID-QID PRN (Reason: hemorrhoids) Qty: 30 RF: 0 Vimpat 200 mg tablet 200 mg PO BID 60 Days Qty: 120 RF: 1 omeprazole 20 mg capsule,delayed release(DR/EC) 20 mg PO DAILY 30 Days Qty: 30 RF: 2 phenobarbital 97.2 mg tablet 97.2 mg PO DAILY PRN (Reason: sleep) 90 Days Qty: 90 RF: 0 Dilantin 30 mg capsule 90 mg PO TID 90 Days Qty: 810 RF: 2
[2020-11-28] MEDS: Acetaminophen 325 MG TABLET 975 MG PO (05:32)
== END 2020-11-28 08:16 | disposition home or self-care (01) ==
PROVIDERS: Nurse Practitioner Family; Emergency Provider Emergency Medicine; PCP Internal Medicine
DX: U07.1 COVID-19 (principal); E78.00 Pure hypercholesterolemia, unspecified; Z86.73 Personal history of transient ischemic attack (TIA), and cerebral infarction without residual deficits
CPT/HCPCS: 36415; 71045; 87635; 99283; 99284

== ENCOUNTER 2020-12-07 07:35 | Outpatient (REF) | payer MEDICARE, MEDICAID, SELFPAY ==
[2020-12-07 08:02] LABS: COVID-19 Test Negative (Negative); IDNOW Serial# 55D5AD1C
== END 2020-12-07 07:36 | disposition home or self-care (01) ==
LOC: HO.LAB 07:35
PROVIDERS: Visit Provider Internal Medicine
DX: Z20.822 Contact with and (suspected) exposure to COVID-19 (principal)
CPT/HCPCS: 36415; 87635; C9803

== ENCOUNTER 2021-02-17 11:12 | Outpatient (REF) | payer MEDICARE, MEDICAID, SELFPAY ==
--- NOTE | ~2021-02-17 | US_ITS ---
EXAMINATION: US THYROID CLINICAL INFORMATION: Nontoxic multinodular goiter. COMPARISON: Ultrasound thyroid soft tissues 12/18/2019 and 12/25/2018. TECHNIQUE: Linear transducer grayscale and color Doppler examination with attention to the region of the thyroid. FINDINGS: SIZE: Measurements of the thyroid lobes and nodules are given in sagittal, anteroposterior and transverse dimensions respectively. Right Thyroid Lobe: 5.0 x 2.7 x 1.9 cm, volume 13.4 mL. Previously 4.6 x 2.2 x 1.6 cm, volume 8.2 mL. Parenchyma: The gland echotexture is heterogeneous. Thyroid vascularity is normal. Left Thyroid Lobe: 5.1 x 3.0 x 3.6 cm, volume 28.8 mL. Previously 5.0 x 2.7 x 2.7 cm, volume 19.2 mL. Parenchyma: The gland echotexture is heterogeneous. Thyroid vascularity is normal. Isthmus: 0.5 cm in maximum AP dimension. Previously 0.3 cm. Estimated total number of nodules greater than or equal to 1 cm: 2. [employer] nodules are described as follows: 1. Location: Right inferior. Size: 3.6 x 2.2 x 1.8 cm, volume 7.5 mL. Previously: 2.8 x 1.7 x 1.6 cm, volume 4.0 mL. Nodule characteristics: Composition: Mixed cystic and solid (1). Echogenicity: Hyperechoic (1). Shape: Taller than wide (3). Margins: Ill-defined (0). Echogenic Foci: None (0). ACR TI-RADS total points: 5 ACR TI-RADS category: 4 Significant change in size (>/= 20% in 2 dimensions and minimal increase of 2 mm or 50% or greater increase in volume): Yes Change in features: No Change in ACR TI-RADS risk category: No 2. Location: Left mid. Size: 4.2 x 2.6 x 3.4 cm, volume 19.4 mL. Previously: 4.0 x 2.6 x 3.1 cm, volume 16.9 mL. Nodule characteristics: Composition: Solid/almost completely solid (2). Echogenicity: Hyperechoic (1). Shape: Not taller than wide (0). Margins: Smooth (0). Echogenic Foci: None (0). ACR TI-RADS total points: 3 ACR TI-RADS category: 3 Significant change in size (>/= 20% in 2 dimensions and minimal increase of 2 mm or 50% or greater increase in volume): No Change in features: No Change in ACR TI-RADS risk category: No NODES: No lymphadenopathy is seen in the tissue surrounding the thyroid gland. US/US thyroid IMPRESSION: Enlarged heterogeneous thyroid gland. Interval increase in size in the right nodule. According to TI RADS criteria, fine needle aspiration recommended. Stable left nodule.. ACR TI-RADS RECOMMENDATION REFERENCE: Ultrasound-guided fine-needle aspiration, followup ultrasound, no further follow up. * TR1 (0 point) and TR 2 (2 points): No FNA or follow up * TR3 (3 points): FNA if more than or equal to 2.5 cm in maximum dimension, followup ultrasound in 1, 3 and 5 years if 1.5 to 2.4 cm in maximum dimension. * TR4 (4-6 points): FNA if more than or equal to 1.5 cm in maximum dimension, followup ultrasound in 1, 2, 3 and 5 years if 1 to 1.4 cm in maximum dimension. * TR5 (more than or equal to 7 points): FNA if more than or equal to 1 cm in maximum dimension, followup ultrasound every year for 5 years if 0.5 to 0.9 cm in maximum dimension. * TR3, TR4 or TR5 nodules that are below the size threshold for follow up receive no follow up.
== END 2021-02-17 11:13 | disposition home or self-care (01) ==
LOC: HO.US 11:12
PROVIDERS: Visit Provider Internal Medicine Endocrinology, Diabetes & Metabolism
DX: E04.2 Nontoxic multinodular goiter (principal)
CPT/HCPCS: 76536

== ENCOUNTER 2021-04-12 05:51 | Day surgery (SDC) | payer MEDICARE, MEDICAID, SELFPAY ==
[2021-04-02 08:18] LABS: Glucose Urine UA NEG (NEG); Leukocyte Esterase Urine NEG (NEG); Nitrite Urine NEG (NEG); PH 5.5 (5.0-8.0); Specific Gravity - Urine 1.025 (1.005-1.025); Urine Blood NEG (NEG); Urine Ketones NEG (NEG); Urine Protein NEG (NEG-TRACE)
[2021-04-02 08:19] LABS: Appearance Urine CLEAR; Color Urine YELLOW
[2021-04-02 08:30] LABS: Hemoglobin 13.3 g/dl (14.0-18.0); Mean Corpuscular HGB Conc 32.4 g/dl (31.0-36.0); Mean Corpuscular Hemoglobin 27.7 pg (27.0-33.0); Mean Corpuscular Volume 85.4 fL (80-98); Mean Platelet Volume 11.6 fL (9.4-12.4); Platelet Count 201 X10*3/uL (160-400); Red Cell Distribution Width 13.8 % (11.0-16.0); White Blood Count 5.1 X10*3/uL (4.8-10.8)
[2021-04-02 09:01] LABS: Alanine Aminotransferase 16 U/L (0-40); Alkaline Phosphatase 135 U/L (39-117); Anion Gap 14 (12-20); Aspartate Amino Transferase 13 U/L (5-37); Bilirubin Direct < 0.2 mg/dL (0.0-0.5); Bilirubin Total 0.3 mg/dL (0.0-1.0); Blood Urea Nitrogen 14 mg/dL (9-16); Calcium 8.9 mg/dL (8.4-10.2); Carbon Dioxide 23 mmol/L (22-29); Chloride 108 mmol/L (96-108); Estimated Glomerular Filt Rate > 60; Glucose Random 95 mg/dL (60-115); Potassium 3.8 mmol/L (3.3-5.1); Sodium 141 mmol/L (135-145); Total Protein 7.1 g/dL (6.5-8.0)
[2021-04-02 09:09] LABS: Thyroid Stimulating Hormone 2.33 uIU/mL (0.32-4.0)
--- NOTE | 2021-04-05 13:22 | MHC.SHP ---
Pre-Procedural Eval Section A Date of Service: 04/05/21 The patient is an INPATIENT: No The History & Physical has been completed within 30 days and I have reviewed it.: Yes Section B Chief Complaint: cataract left eye Allergies: Allergies Allergy/AdvReac Type Severity Reaction Status Date / Time No Known Allergies Allergy Verified 04/01/21 09:09 [No Known Allergies*] Plan I have reviewed the history and physical and performed a pertinent physical examination on my patient. No changes have occurred unless specified.
--- NOTE | 2021-04-08 14:08 | HO.ANESPROP2 ---
Documented by User: Bonny Collins NP 04/09/21 09:11 HPI - Anesthesia Eval Consult details Narrative: 55yo M for Left Cataract Extraction IOL Insertion PCP cleared No prev cataract on record Recent seizure per PAT. Known sz disorder. On Rx. T/C with sister/HCP 04/09/21, no seizure activity since last week. Ventriculostomy tube in situ r/t hydrocephalus PMFSH Active Problems Active Problems: All Active Problems (Updated 04/06/21 @ 11:21 by Martha Gillette RN) Pernicious anemia (Acute) Oropharyngeal dysphagia (Acute) Non-toxic multinodular goiter (Acute) Swelling of left hand (Acute) Fall (Acute) B12 deficiency (Acute) Anemia (Acute) GERD (gastroesophageal reflux disease) (Acute) Diarrhea (Acute) COVID-19 (Acute) Preoperative clearance (Acute) Cataract (Acute) Hypercholesterolemia (Acute) Vitamin D deficiency (Acute) Obstructive sleep apnea (Acute) History of CVA (cerebrovascular accident) (Acute) Obesity (Acute) Seizure disorder (Acute) Past Medical History Medical History Aspiration into airway Cataract Chronic static encephalopathy Edentulous Epilepsy History of CVA (cerebrovascular accident) History of meningitis Hypercholesterolemia Left hemiparesis Mental and behavioral problem Obesity Obstructive sleep apnea Seizure Seizure disorder Thyroid nodule Tubular adenoma of colon Umbilical hernia Uses walker Vitamin D deficiency Family History Family History Father Myocardial infarction Mother Myocardial infarction Maternal Uncle Prostate cancer Brother No problems noted. Sister No problems noted. Surgical History Surgical History History of brain surgery History of lung surgery Hx of colonoscopy S/P COMBAT CONTROL shunt Social History Social History Housing: Apartment Alcohol intake: never Patient Tobacco Use Status: Never used Tobacco e-Cigarette/Vaping Use: Never Used Second Hand Smoke Exposure: No Use of substances other than those prescribed or required for medical reasons: No Are you DNR?: No Advance Directives: No Advance Directives Information Provided: Yes service: No Current occupational status: disabled Meds Allergies Allergy/AdvReac Type Severity Reaction Status Date / Time No Known Allergies Allergy Verified 04/06/21 10:46 [No Known Allergies*] Home Medications Medication Instructions Recorded Confirmed Last Taken Type folic acid 1 mg tablet 1 tab PO DAILY 04/06/21 04/06/21 Unknown History phenobarbital 97.2 mg tablet 1 tab PO BID 04/06/21 04/06/21 Unknown History phenytoin sodium extended 100 mg 2 tab PO BID 04/06/21 04/06/21 Unknown History capsule Exam Exam Date and Time: April 08, 2021 1408 Pertinent Lab Results Pertinent Lab Results: Laboratory Tests 04/02/21 04/02/21 04/02/21 06:25 06:25 06:30 WBC 5.1 RBC 4.80 Hgb 13.3 L Hct 41.0 L MCV 85.4 MCH 27.7 MCHC 32.4 RDW 13.8 Plt Count 201 MPV 11.6 Absolute Nucleated RBC 0.000 Nucleated RBC % (auto) 0.0 Sodium 141 Potassium 3.8 Chloride 108 Carbon Dioxide 23 Anion Gap 14 BUN 14 Creatinine 0.74 Estim Creat Clear Calc TNP Estimated GFR > 60 Random Glucose 95 Calcium 8.9 Total Bilirubin 0.3 Direct Bilirubin < 0.2 AST 13 ALT 16 Alkaline Phosphatase 135 H Total Protein 7.1 Albumin 4.0 TSH 2.33 Urine Color YELLOW Urine Appearance CLEAR Urine pH 5.5 Ur Specific [place] 1.025 Urine Protein NEG Urine Glucose (UA) NEG Urine Ketones NEG Urine Blood NEG Urine Nitrite NEG Ur Leukocyte Esterase NEG Narrative Narrative: EKG 03/2021 SR @ 70 RSR' in V2 Assessment and Plan Assessment Anesthesia Assessment: Chart Reviewed Documented by User: Opal Nichols MD 04/12/21 08:02 [facility] Past Medical History Medical History Aspiration into airway Cataract Chronic static encephalopathy Edentulous Epilepsy History of CVA (cerebrovascular accident) History of meningitis Hypercholesterolemia Left hemiparesis Mental and behavioral problem Obesity Obstructive sleep apnea Seizure Seizure disorder Thyroid nodule Tubular adenoma of colon Umbilical hernia Uses walker Vitamin D deficiency Family History Family History Father Myocardial infarction Mother Myocardial infarction Maternal Uncle Prostate cancer Brother No problems noted. Sister No problems noted. Surgical History Surgical History History of brain surgery History of lung surgery Hx of colonoscopy S/P COMBAT CONTROL shunt History of Problems with Anesthesia: No Social History Social History Housing: Apartment Alcohol intake: never Patient Tobacco Use Status: Never used Tobacco e-Cigarette/Vaping Use: Never Used Second Hand Smoke Exposure: No Use of substances other than those prescribed or required for medical reasons: No Are you DNR?: No Advance Directives: No Advance Directives Information Provided: Yes service: No Current occupational status: disabled Meds Allergies Allergy/AdvReac Type Severity Reaction Status Date / Time No Known Allergies Allergy Verified 04/06/21 10:46 [No Known Allergies*] Home Medications Medication Instructions Recorded Confirmed Last Taken Type folic acid 1 mg tablet 1 tab PO DAILY 04/06/21 04/06/21 Unknown History phenobarbital 97.2 mg tablet 1 tab PO BID 04/06/21 04/06/21 Unknown History phenytoin sodium extended 100 mg 2 tab PO BID 04/06/21 04/06/21 Unknown History capsule Exam Airway Mallampati Class: II (Edentulous) TM Dist: >3cm Neck ROM: Limited Loose/Missing/Broken Teeth: Yes, Upper and Lower Heart: RRR Lungs: CTA Assessment and Plan Assessment Anesthesia Assessment: Anesthesia Plan Discussed Final Anesthetic Review History of Problems with Anesthesia: No NPO: Yes ASA Class: III Final Preanesthetic Review: Meds/Allgs Chart Reviewed, Consent Obtained/Reviewed and Anes Risks/Benef Reviewed Patient Risk: Intermediate Procedure Risk: Low Anesthetic Plan Anesthetic Plan: GA Disposition: Standard PACU
[2021-04-12 06:15] VITALS: BMI 39.9
[2021-04-12 06:20] VITALS: BP 163/82; PULSE 73; RESP 18; TEMP 36.7; O2SAT 97
[2021-04-12] MEDS: Tetracaine HCl/PF 0.5% Oph Sol 4 ML DROPS 1 DROP EYE-LEFT (06:21)
[2021-04-12] MEDS: Tropicamide 1 % Ophth Sol 3 ML BTL 1 DROP EYE-LEFT ×3 (06:21→06:33)
[2021-04-12] MEDS: Phenylephrine HCL 2.5% Oph SoL 2 ML BOTTLE 1 DROP EYE-LEFT ×3 (06:22→06:38)
[2021-04-12] MEDS: Lactated Ringers 500 ML 50 ML IV (07:12)
--- NOTE | 2021-04-12 07:46 | HO.PNOPHT ---
Ophthalmology Procedure Procedure Date of Service: 04/12/21 Ophthalmology Viscoelastic: Healshreya Duet Dual Pack Pro Ophthalmology Lenses: TECCOSME [id number] (21) Procedure Notes: PREOPERATIVE DIAGNOSIS: Decreased visual acuity left eye secondary to cataract POSTOPERATIVE DIAGNOSIS: Same PROCEDURE: Left cataract extraction with intraocular lens insertion SURGEON: Dick Betts M.D. ANESTHESIA: General ESTIMATED BLOOD LOSS: None COMPLICATIONS: None After obtaining informed consent, the patient was brought to the operation room suite and placed in the supine position. After adequate sedation per anesthesia, topical drops of Tetracaine were given to the left eye. The eye was then prepped and draped in the usual sterile fashion. The operating room microscope was then positioned over the operative eye and a lid speculum placed. A paracentesis was created. Viscoelastic was then instilled into the anterior chamber. A three plane incision was then created temporally, utilizing a 2.85 mm keratome. Capsulotomy forceps were then utilized to create a circular tear capsulotomy. Hydrodissection and hydrodelineation were carried out until adequate mobilization of the nucleus occurred. Phacoemulsification was then utilized to remove the dense central nucleus followed by removal of the cortical material utilizing the automated aspiration irrigation unit. Viscoat elastic was instilled into the posterior capsular bag followed by placement of a posterior chamber intraocular lens without difficulty. The residual Viscoat elastic was then removed utilizing the automated IA machine. The wound was check and found to be watertight. The patient tolerated the procedure well and the lid speculum was removed. Intracameral injection of Vigamox 0.1 mL followed by a subtenon injection of Kenalog-40 0.2 mL were administered. The patient will be seen in the a.m.
[2021-04-12 08:35] VITALS: BP 156/85; PULSE 78; RESP 16; TEMP 36.7; O2SAT 100
[2021-04-12 08:40] VITALS: BP 151/82; PULSE 72; RESP 16; O2SAT 100
[2021-04-12 08:45] VITALS: BP 148/80; PULSE 75; RESP 18; O2SAT 100
[2021-04-12 08:50] VITALS: BP 149/78; PULSE 74; RESP 16; O2SAT 100
[2021-04-12 09:00] VITALS: BP 150/81; PULSE 76; RESP 18; TEMP 36.7; O2SAT 100
== END 2021-04-12 09:20 | disposition home or self-care (01) ==
LOC: HO.SSS 05:52
PROVIDERS: Absent Provider Internal Medicine; PCP Internal Medicine; Visit Provider Ophthalmology
PROC: (CPT 66985; principal; 2021-04-12 07:30)
DX: H25.12 Age-related nuclear cataract, left eye (principal); H54.7 Unspecified visual loss; G40.909 Epilepsy, unspecified, not intractable, without status epilepticus; I69.954 Hemiplegia and hemiparesis following unspecified cerebrovascular disease affecting left non-dominant side; I69.998 Other sequelae following unspecified cerebrovascular disease; G47.33 Obstructive sleep apnea (adult) (pediatric); Z79.899 Other long term (current) drug therapy; Z79.52 Long term (current) use of systemic steroids; Z86.61 Personal history of infections of the central nervous system
CPT/HCPCS: 66984; 36415; 80048; 80076; 81003; 84443; 85027; J1100; J2250; J2405; J3010; J3300; V2632

== ENCOUNTER 2021-05-16 13:44 | Emergency (ER) | payer MEDICARE, MEDICAID, SELFPAY ==
--- NOTE | ~2021-05-16 | CT_ITS ---
EXAMINATION: CT HEAD WITHOUT CONTRAST CLINICAL INFORMATION: Headache COMPARISON: 06/20/2020 TECHNIQUE: Contiguous axial imaging was performed from the skull base to vertex without intravenous administration of contrast. This CT examination was performed using dose optimization techniques as appropriate, variously including the following: *Automated exposure control *Adjustment of mA and/or kV according to patient size (this includes techniques or standardized protocols for targeted exams where dose is matched to indication/reason for exam; i.e. extremities or head) *Use of iterative reconstruction technique DLP: 947 mGy-cm FINDINGS: Right-sided shunt catheter remains similar with its tip along the right lateral ventricle. Ventriculomegaly right greater than left unchanged. No hemorrhage. No extra-axial abnormality. There is no evidence of acute intracranial hemorrhage or territorial infarction. No abnormal mass effect or midline shift is seen. [place] to white matter differentiation is well preserved. The mastoid air cells and visualized portions of the paranasal sinuses are well aerated. CT/CT head/brain wo con IMPRESSION: No acute intracranial pathology. Stable ventriculomegaly and appearance of shunt catheter.
--- NOTE | ~2021-05-16 | XR_ITS ---
EXAMINATION: XR CHEST CLINICAL INFORMATION: Weakness COMPARISON: 11/28/2020 TECHNIQUE: 2 views of the chest were obtained. FINDINGS: Relative expiratory chest centers lung markings. On for technique, there is no gross abnormality. Elevation right hemidiaphragm again noted. No significant abnormality is noted involving the heart, lungs, mediastinum, bony thorax or soft tissues. XR/XR chest 2V IMPRESSION: Limited expiratory chest as above. No gross focal lesion acutely.
[2021-05-16 14:40] VITALS: BP 147/73; PULSE 73; RESP 18; TEMP 36.8; O2SAT 96; BMI 41.2
--- NOTE | 2021-05-16 14:43 | ECG_ITS ---
Test Reason : WEAKNESS Blood Pressure : / mmHG Vent. Rate : 066 BPM Atrial Rate : 066 BPM P-R Int : 150 ms QRS Dur : 082 ms QT Int : 420 ms P-R-T Axes : 044 070 040 degrees QTc Int : 440 ms Normal sinus rhythm Nonspecific ST and T wave abnormality Abnormal ECG When compared with ECG of 13-JUL-2018 14:45, No significant change was found Referred By: Generic ED Physician Electronically Signed By:YO SHELDON
[2021-05-16 15:42] LABS: Appearance Urine CLEAR; Color Urine YELLOW; Glucose Urine UA NEG (NEG); Leukocyte Esterase Urine NEG (NEG); Nitrite Urine NEG (NEG); Urine Blood NEG (NEG); Urine Ketones NEG (NEG); Urine Protein NEG (NEG-TRACE)
[2021-05-16 15:52] LABS: COVID-19 Test Negative (Negative)
[2021-05-16 16:29] VITALS: BP 147/85; PULSE 68; RESP 14; TEMP 36.9; O2SAT 98
--- NOTE | 2021-05-16 17:12 | ED.WEAKNESS ---
HPI - Weakness General Chief complaint: Weakness Stated complaint: HEADACHE Time Seen by Provider: 05/16/21 16:12 History of Present Illness HPI Narrative: 55-year-old male with a history of meningitis as a child presents today with having headaches. The headache is on both side. Patient's feels somewhat lightheaded. There is no for new focal weakness. No coughing or congestion or upper respiratory symptoms. Patient is immunized for COVID. No nausea no vomiting. There is no change in vision. Patient is from home. No vomiting. Patient claims the headache is 6/10. No neck pain. No fever. Related Data Home Medications Medication Instructions Recorded Confirmed folic acid 1 mg tablet 1 tab PO DAILY 04/06/21 04/06/21 phenobarbital 97.2 mg tablet 1 tab PO BID 04/06/21 04/06/21 phenytoin sodium extended 100 mg 2 tab PO BID 04/06/21 04/06/21 capsule Previous Rx's Medication Instructions Recorded cholecalciferol (vitamin D3) 1,250 1,250 mcg PO QWEEK 84 Days #12 cap 10/30/20 mcg (50,000 unit) capsule hydrocortisone 2.5 % topical cream 1 appl UT BID-QID PRN #30 g 10/30/20 with perineal applicator (Proctosol HC) lacosamide 200 mg tablet (Vimpat) 200 mg PO BID 60 Days #120 tab 10/30/20 omeprazole 20 mg capsule,delayed 20 mg PO DAILY 30 Days #30 cap 10/30/20 release phenytoin sodium extended 30 mg 90 mg PO TID 90 Days #810 cap 10/30/20 capsule (Dilantin) acetaminophen 650 mg 650 mg PO Q8H PRN #14 tab 11/28/20 tablet,extended release (Tylenol Arthritis Pain) prednisone 50 mg tablet 50 mg PO DAILY #5 tab 11/28/20 benzonatate 100 mg capsule 100 mg PO BID-TID PRN #30 cap 11/30/20 (Tesdraganon Faviola) cyanocobalamin (vitamin B-12) 1,000 mcg IM Q4W 90 Days #4 ml 03/31/21 1,000 mcg/mL injection solution Allergies Allergy/AdvReac Type Severity Reaction Status Date / Time No Known Allergies Allergy Verified 05/16/21 14:39 [No Known Allergies*] Review of Systems Review of Systems: No fever no chills no chest pain or shortness of breath no diaphoresis All systems reviewed otherwise negative Yes all other systems are reviewed and are negative [facility] Past Medical History Attestation statement: The following information was validated with the patient. Medical History Aspiration into airway Cataract Chronic static encephalopathy Edentulous Epilepsy History of CVA (cerebrovascular accident) History of meningitis Hypercholesterolemia Left hemiparesis Mental and behavioral problem Obesity Obstructive sleep apnea Seizure Seizure disorder Thyroid nodule Tubular adenoma of colon Umbilical hernia Uses walker Vitamin D deficiency Surgical History History of brain surgery History of lung surgery Hx of colonoscopy S/P LITHOGRAPHERS PRINTER shunt Family History Family History Father Myocardial infarction Mother Myocardial infarction Maternal Uncle Prostate cancer Brother No problems noted. Sister No problems noted. Social History Social History Housing: Apartment Alcohol intake: never Patient Tobacco Use Status: Never used Tobacco e-Cigarette/Vaping Use: Never Used Second Hand Smoke Exposure: No Advance Directives: Yes Advance Directives on File: Yes Advance Directives Date on File: 04/13/21 service: No Current occupational status: disabled Physical Exam Vital Signs: Vital Signs: Last Vital Signs Temp 98.4 F 05/16/21 16:29 Pulse 86 05/16/21 18:24 Resp 24 H 05/16/21 18:24 BP 147/85 H 05/16/21 16:29 Pulse Ox 98 05/16/21 16:29 Body Mass Index 41.2 Appearance: Alert. Oriented X3. No acute distress. Eyes: Pupils equal, round and reactive to light. ENT: Pharynx normal. Neck: Normal inspection. Neck supple. No lymph nodes noted. No crepitus CVS: Normal heart rate and rhythm. Pulses normal. Normal S1 and S2 Respiratory: No respiratory distress. Breath sounds normal. No Wheezing. No rales Abdomen: Soft and nontender. No rigidity. No distention. good BS x4 Skin: Skin warm and dry. Normal skin color. Normal skin turgor. Extremities: No lower extremity edema. Neurovascular intact to all extremities. No Lacerations. No Rash Neuro: Oriented X 3. No motor deficit. No sensory deficit. Moving all extermities. Positive contraction noted in the left upper extremity. Per family this is old. No slurred speech MDM - Weakness MDM Narrative Medical decision making narrative: CT scan of the head was grossly negative for any acute evidence of bleeding. The shunt was in place. Patient's sed rate is normal. There is no evidence for temporal arteritis. Vision grossly intact. Electrolyte normal. Headache resolved after Compazine. Will discharge patient home. In stable condition. Lab Data Result diagrams: 05/16/21 18:51 05/16/21 18:45 Labs: Lab Results 05/16/21 05/16/21 05/16/21 Range/Units 15:32 15:32 18:45 WBC (4.8-10.8) X10*3/uL RBC (4.60-5.80) X10*6/uL Hgb (14.0-18.0) g/dl Hct (42-52) % MCV (80-98) fL MCH (27.0-33.0) pg MCHC (31.0-36.0) g/dl RDW (11.0-16.0) % Plt Count (160-400) X10*3/uL MPV (9.4-12.4) fL Immature Gran % (Auto) (0.0-0.4) % Neut % (Auto) (45-73) % Lymph % (Auto) (20-40) % [place] % (Auto) (2-11) % Eos % (Auto) (0-4) % Baso % (Auto) (0-2) % Lymph # (Auto) (1.2-4.9) X10*3/uL [place] # (Auto) (0.1-1.2) X10*3/uL Eos # (Auto) (0.0-0.4) X10*3/uL Baso # (Auto) (0.0-0.2) X10*3/uL Abs Immat Gran (auto) (0.00-0.03) X10*3/uL Absolute Neuts (auto) (2.0-8.3) X10*3/uL Absolute Nucleated RBC (0.0-0.012) X10*3/uL Nucleated RBC % (auto) (0.0-0.2) /100WBC ESR (0-15) MM/HR Sodium 144 (135-145) mmol/L Potassium 4.0 (3.3-5.1) mmol/L Chloride 109 H (96-108) mmol/L Carbon Dioxide 24 (22-29) mmol/L Anion Gap 15 (12-20) BUN 9 (9-16) mg/dL Creatinine 0.70 (0.5-1.4) mg/dL Estim Creat Clear Calc 141.3 Estimated GFR > 60 Random Glucose 99 (60-115) mg/dL Calcium 9.3 (8.4-10.2) mg/dL Total Bilirubin 0.3 (0.0-1.0) mg/dL AST 14 (5-37) U/L ALT 11 (0-40) U/L Alkaline Phosphatase 139 H (39-117) U/L Total Protein 7.7 (6.5-8.0) g/dL Albumin 4.3 (3.5-5.0) g/dL Urine Color YELLOW Urine Appearance CLEAR Urine pH 7.0 (5.0-8.0) Ur Specific [place] 1.010 (1.005-1.025) Urine Protein NEG (NEG-TRACE) MG/DL Urine Glucose (UA) NEG (NEG) MG/DL Urine Ketones NEG (NEG) MG/DL Urine Blood NEG (NEG) Urine Nitrite NEG (NEG) Ur Leukocyte Esterase NEG (NEG) COVID-19 ([facility]) Negative (Negative) COVID-19 Clin Com See Note 05/16/21 05/16/21 Range/Units 18:51 18:51 WBC 5.8 (4.8-10.8) X10*3/uL RBC 4.73 (4.60-5.80) X10*6/uL Hgb 13.3 L (14.0-18.0) g/dl Hct 40.3 L (42-52) % MCV 85.2 (80-98) fL MCH 28.1 (27.0-33.0) pg MCHC 33.0 (31.0-36.0) g/dl RDW 14.6 (11.0-16.0) % Plt Count 208 (160-400) X10*3/uL MPV 10.8 (9.4-12.4) fL Immature Gran % (Auto) 0.2 (0.0-0.4) % Neut % (Auto) 53.2 (45-73) % Lymph % (Auto) 35.0 (20-40) % [place] % (Auto) 8.3 (2-11) % Eos % (Auto) 2.6 (0-4) % Baso % (Auto) 0.7 (0-2) % Lymph # (Auto) 2.0 (1.2-4.9) X10*3/uL [place] # (Auto) 0.5 (0.1-1.2) X10*3/uL Eos # (Auto) 0.2 (0.0-0.4) X10*3/uL Baso # (Auto) 0.0 (0.0-0.2) X10*3/uL Abs Immat Gran (auto) 0.01 (0.00-0.03) X10*3/uL Absolute Neuts (auto) 3.1 (2.0-8.3) X10*3/uL Absolute Nucleated RBC 0.000 (0.0-0.012) X10*3/uL Nucleated RBC % (auto) 0.0 (0.0-0.2) /100WBC ESR 6 (0-15) MM/HR Sodium (135-145) mmol/L Potassium (3.3-5.1) mmol/L Chloride (96-108) mmol/L Carbon Dioxide (22-29) mmol/L Anion Gap (12-20) BUN (9-16) mg/dL Creatinine (0.5-1.4) mg/dL Estim Creat Clear Calc Estimated GFR Random Glucose (60-115) mg/dL Calcium (8.4-10.2) mg/dL Total Bilirubin (0.0-1.0) mg/dL AST (5-37) U/L ALT (0-40) U/L Alkaline Phosphatase (39-117) U/L Total Protein (6.5-8.0) g/dL Albumin (3.5-5.0) g/dL Urine Color Urine Appearance Urine pH (5.0-8.0) Ur Specific [place] (1.005-1.025) Urine Protein (NEG-TRACE) MG/DL Urine Glucose (UA) (NEG) MG/DL Urine Ketones (NEG) MG/DL Urine Blood (NEG) Urine Nitrite (NEG) Ur Leukocyte Esterase (NEG) COVID-19 ([facility]) (Negative) COVID-19 Clin Com Discharge Plan Discharge Clinical Impression: Tension headache Patient Disposition: Home, Self-Care Instructions: Tension Headache (ED) Prescriptions: No Action benzonatate [Tessalon Perles] 100 mg capsule 100 mg PO BID-TID PRN (Reason: cough) Qty: 30 RF: 0 prednisone 50 mg tablet 50 mg PO DAILY Qty: 5 RF: 0 acetaminophen [Tylenol Arthritis Pain] 650 mg tablet extended release 650 mg PO Q8H PRN (Reason: fever) Qty: 14 RF: 0 phenobarbital 97.2 mg tablet 1 tab PO BID RF: 0 phenytoin sodium extended 100 mg capsule 2 tab PO BID RF: 0 folic acid 1 mg tablet 1 tab PO DAILY RF: 0 cholecalciferol (vitamin D3) 1,250 mcg (50,000 unit) capsule 1,250 mcg PO QWEEK 84 Days Qty: 12 RF: 0 hydrocortisone [Proctosol HC] 2.5 % cream with perineal applicator 1 appl UT BID-QID PRN (Reason: hemorrhoids) Qty: 30 RF: 0 Vimpat 200 mg tablet 200 mg PO BID 60 Days Qty: 120 RF: 1 omeprazole 20 mg capsule,delayed release(DR/EC) 20 mg PO DAILY 30 Days Qty: 30 RF: 2 Dilantin 30 mg capsule 90 mg PO TID 90 Days Qty: 810 RF: 2 cyanocobalamin (vitamin B-12) 1,000 mcg/mL solution 1,000 mcg IM Q4W 90 Days Qty: 4 RF: 3 Referrals: Po,Veronique Alexander MD [Primary Care Provider] - 2 days Print Language: Kiswahili
[2021-05-16 18:19] LABS: MANUAL DIFF FLAG NO
[2021-05-16 18:24] VITALS: PULSE 86; RESP 24
[2021-05-16] MEDS: diphenhydrAMINE HCL 50 MG/ML VIAL 25 MG IVPUSH (18:26)
[2021-05-16] MEDS: Prochlorperazine Edisylate 10 MG/2 ML VIAL IVPUSH (18:26)
[2021-05-16 18:58] LABS: Basophils Percent Auto 0.7 % (0-2); Eosinophils Absolute Auto 0.2 X10*3/uL (0.0-0.4); Eosinophils Percent Auto 2.6 % (0-4); Hematocrit 40.3 % (42-52); Hemoglobin 13.3 g/dl (14.0-18.0); Imm Gran Abs Auto 0.01 X10*3/uL (0.00-0.03); Imm Gran Pct Auto 0.2 % (0.0-0.4); Mean Corpuscular Hemoglobin 28.1 pg (27.0-33.0); Mean Corpuscular Volume 85.2 fL (80-98); Mean Platelet Volume 10.8 fL (9.4-12.4); Monocytes Absolute Auto 0.5 X10*3/uL (0.1-1.2); Monocytes Percent Auto 8.3 % (2-11); Neutrophils Absolute Auto 3.1 X10*3/uL (2.0-8.3); Neutrophils Percent Auto 53.2 % (45-73); Platelet Count 208 X10*3/uL (160-400); Red Blood Count 4.73 X10*6/uL (4.60-5.80); Red Cell Distribution Width 14.6 % (11.0-16.0); White Blood Count 5.8 X10*3/uL (4.8-10.8)
[2021-05-16 19:05] LABS: Alanine Aminotransferase 11 U/L (0-40); Albumin Level 4.3 g/dL (3.5-5.0); Alkaline Phosphatase 139 U/L (39-117); Anion Gap 15 (12-20); Aspartate Amino Transferase 14 U/L (5-37); Bilirubin Total 0.3 mg/dL (0.0-1.0); Blood Urea Nitrogen 9 mg/dL (9-16); Calcium 9.3 mg/dL (8.4-10.2); Carbon Dioxide 24 mmol/L (22-29); Chloride 109 mmol/L (96-108); Creatinine Clr Calc Pharmacy 141.3; Estimated Glomerular Filt Rate > 60; Glucose Random 99 mg/dL (60-115); Sodium 144 mmol/L (135-145); Total Protein 7.7 g/dL (6.5-8.0)
[2021-05-16 19:35] LABS: Erythrocyte Sedimentation Rate 6 MM/HR (0-15)
[2021-05-16] MEDS: Ketorolac Tromethamine 15 MG/ML VIAL 30 MG IVPUSH (19:53)
== END 2021-05-16 20:49 | disposition home or self-care (01) ==
PROVIDERS: Emergency Provider Emergency Medicine Emergency Medical Services; PCP Internal Medicine
DX: G44.209 Tension-type headache, unspecified, not intractable (principal); Z20.822 Contact with and (suspected) exposure to COVID-19; Z79.899 Other long term (current) drug therapy
CPT/HCPCS: 36415; 70450; 71046; 80053; 81003; 85025; 85652; 87635; 93005; 96374; 96375; 99284; J1200; J1885

== ENCOUNTER → 2021-06-10 14:07 | Outpatient (BNVA) | payer MEDICARE, MEDICAID, SELFPAY | PROVIDERS: PCP Internal Medicine; Visit Provider Internal Medicine | DX: E04.2 Nontoxic multinodular goiter (principal); G93.49 Other encephalopathy; E78.00 Pure hypercholesterolemia, unspecified; E55.9 Vitamin D deficiency, unspecified; Z86.73 Personal history of transient ischemic attack (TIA), and cerebral infarction without residual deficits; Z79.899 Other long term (current) drug therapy; Z98.2 Presence of cerebrospinal fluid drainage device | CPT/HCPCS: 99212 ==

== ENCOUNTER 2021-06-22 06:34 | Outpatient (REF) | payer MEDICARE, MEDICAID, SELFPAY ==
[2021-06-22 06:42] LABS: MANUAL DIFF FLAG NO
[2021-06-22 07:29] LABS: Basophils Percent Auto 0.7 % (0-2); Eosinophils Absolute Auto 0.2 X10*3/uL (0.0-0.4); Eosinophils Percent Auto 3.5 % (0-4); Hematocrit 39.6 % (42.0-52.0); Hemoglobin 12.8 g/dl (14.0-18.0); Imm Gran Abs Auto 0.02 X10*3/uL (0.00-0.03); Imm Gran Pct Auto 0.4 % (0.0-0.4); Lymphocytes Absolute Auto 1.8 X10*3/uL (1.2-4.9); Lymphocytes Percent Auto 32.1 % (20-40); Mean Corpuscular HGB Conc 32.3 g/dl (31.0-36.0); Mean Corpuscular Volume 86.7 fL (80.0-98.0); Mean Platelet Volume 11.1 fL (9.4-12.4); Monocytes Absolute Auto 0.4 X10*3/uL (0.1-1.2); Monocytes Percent Auto 7.7 % (2-11); Neutrophils Absolute Auto 3.1 x10*3/uL (2.0-8.3); Neutrophils Percent Auto 55.6 % (45-73); Platelet Count 211 X10*3/uL (160-400); Red Blood Count 4.57 X10*6/uL (4.60-5.80); Red Cell Distribution Width 14.5 % (11.0-16.0); White Blood Count 5.5 X10*3/uL (4.8-10.8)
[2021-06-22 08:23] LABS: Alanine Aminotransferase 18 U/L (0-40); Albumin Level 4.1 g/dL (3.5-5.0); Alkaline Phosphatase 129 U/L (39-117); Anion Gap 9 (12-20); Aspartate Amino Transferase 17 U/L (5-37); Bilirubin Total 0.5 mg/dL (0.0-1.0); Blood Urea Nitrogen 13 mg/dL (9-16); Calcium 8.6 mg/dL (8.4-10.2); Carbon Dioxide 27 mmol/L (22-29); Chloride 108 mmol/L (96-108); Cholesterol 205 mg/dL; Estimated Glomerular Filt Rate > 60; Glucose Random 97 mg/dL (60-115); HDL Cholesterol 38 mg/dL; Iron 130 mcg/dL (45-160); LDL Cholesterol Calculated 139 mg/dl; Percent Iron Saturation 57 % (15-50); Potassium 3.7 mmol/L (3.3-5.1); Sodium 140 mmol/L (135-145); Total Iron Binding Capacity 229 mcg/dL (228-428); Total Protein 7.1 g/dL (6.5-8.0); Triglycerides 143 mg/dL; Unsaturated Iron Binding 99 ug/dL
[2021-06-22 08:25] LABS: Thyroid Stimulating Hormone 2.57 uIU/mL (0.32-4.0)
[2021-06-22 08:36] LABS: Phenytoin Dilantin 16.3 ug/mL (10.0-20.0); Uric Acid 4.3 mg/dL (3.4-7.0)
[2021-06-22 09:03] LABS: Prostate Specific Antigen Scr 0.14 ng/mL (<0.05-4.0)
[2021-06-22 09:33] LABS: Ferritin 206 ng/mL (20-250)
[2021-06-22 09:37] LABS: Folate 12.5 ng/mL (> or = 4.0); Vitamin B12 587 pg/mL (200-900)
== END 2021-06-22 06:35 | disposition home or self-care (01) ==
LOC: HO.LAB 06:34
PROVIDERS: Absent Provider Internal Medicine; PCP Internal Medicine; Visit Provider Internal Medicine
DX: E04.2 Nontoxic multinodular goiter (principal); G40.909 Epilepsy, unspecified, not intractable, without status epilepticus; E78.00 Pure hypercholesterolemia, unspecified
CPT/HCPCS: 36415; 80053; 80061; 80184; 80185; 82607; 82728; 82746; 83540; 84153; 84439; 84443; 84550; 85025

== ENCOUNTER 2021-07-21 08:02 | Outpatient (REF) | payer MEDICARE, MEDICAID, SELFPAY ==
--- NOTE | ~2021-07-21 | US_ITS ---
EXAMINATION: US ABDOMEN COMPLETE CLINICAL INFORMATION: Right upper quadrant pain. COMPARISON: CT abdomen and pelvis 09/20/2020. X-ray abdomen 07/13/2018. Ultrasound abdomen 10/23/2017. TECHNIQUE: Real-time imaging of the abdominal viscera. Technically difficult study secondary to bowel gas and body habitus. FINDINGS: PANCREAS: The pancreas is obscured by overlying gas. ABDOMINAL AORTA: The abdominal aorta is obscured by overlying gas. INFERIOR VENA CAVA: The IVC is obscured by overlying gas. LIVER: The liver is normal in size. The liver contour is normal. There is increased liver echogenicity. No focal hepatic lesion. There is no intrahepatic biliary duct dilatation seen. GALLBLADDER: Gallbladder wall thickness is 0.3 cm. The gallbladder is physiologically distended without evidence of stones, sludge, polyps, wall thickening or pericholecystic fluid. COMMON BILE DUCT: The CBD is not seen with certainty, however it measures 0.5 cm. RIGHT KIDNEY: Normal. No hydronephrosis. No renal calculi or focal parenchymal lesions. The kidney measures 11.3 cm in maximum dimension. LEFT KIDNEY: Normal. No hydronephrosis. No renal calculi or focal parenchymal lesions. The kidney measures 11.4 cm in maximum dimension. SPLEEN: Normal. The spleen measures 10.8 cm in maximum dimension. FREE FLUID: None. US/US abdomen complete IMPRESSION: Mild hepatic steatosis without focal lesion. The exam is limited by bowel gas pattern. The rest of the abdominal ultrasound is unremarkable.
== END 2021-07-21 08:03 | disposition home or self-care (01) ==
LOC: HO.US 08:02
PROVIDERS: PCP Internal Medicine; Visit Provider Nurse Practitioner Family
DX: R10.11 Right upper quadrant pain (principal); R41.89 Other symptoms and signs involving cognitive functions and awareness; Z11.1 Encounter for screening for respiratory tuberculosis
CPT/HCPCS: 76700

== ENCOUNTER 2021-09-20 12:40 | Outpatient (REF) | payer MEDICARE, MEDICAID, SELFPAY ==
[2021-09-20 14:40] LABS: Free T4 (Free Thyroxine) 0.76 ng/dL (0.71-1.85); Thyroid Stimulating Hormone 1.21 uIU/mL (0.32-4.0)
[2021-09-23 10:16] LABS: TS Negative Control Passed; TS Panel A 0; TS Panel B 0; TS Positive Control Passed; TSpotTB Negative (Negative)
== END 2021-09-20 12:41 | disposition home or self-care (01) ==
LOC: HO.LAB 12:40
PROVIDERS: PCP Internal Medicine; Visit Provider Internal Medicine
DX: Z01.84 Encounter for antibody response examination (principal); Z11.1 Encounter for screening for respiratory tuberculosis; G40.909 Epilepsy, unspecified, not intractable, without status epilepticus
CPT/HCPCS: 36415; 84439; 84443; 86481

== ENCOUNTER 2021-10-28 08:43 | Outpatient (REF) | payer MEDICARE, MEDICAID, SELFPAY ==
--- NOTE | 2021-10-28 10:06 | PM.OP ---
Brief Operative Note Date of Service: 10/28/21 Pre-op diagnosis: Multinodular Thyroid Procedure: The patient arrived for his biopsy and an US of the thyroid was performed. His L lobe nodule measured 3.8 cm in maximum dimension, which was the same measurement as during his prior FNA biopsy. This nodule appeared unchanged from prior, thus no repeat FNA biopsy was indicated. His R lobe spongiform nodule measured 3.3 cm, which is not a significant change from prior when it was biopsied measuring 2.8 cm. Thus no FNA biopsy of this nodule was indicated today. This was discussed with the patient and his Sister. Decision was made to continue with yearly surveillance US and not perform FNA biopsy today as it was not indicated. Both of these nodules had been biopsied in the past, and no significant growth or change was seen since that time. All of the patient and his sister's questions were answered. They are in agreement with this plan of care. Surgeon: Savannah Vargas, DO Was an District Fire Chief used for this Procedure?: No Estimated blood loss (mL): 0
== END 2021-10-28 08:44 | disposition home or self-care (01) ==
LOC: HO.US 08:43
PROVIDERS: PCP Internal Medicine; Visit Provider Internal Medicine
DX: E04.2 Nontoxic multinodular goiter (principal)
CPT/HCPCS: 76536

== ENCOUNTER → 2021-11-11 11:09 | Outpatient (BNVA) | payer MEDICARE, MEDICAID, SELFPAY | PROVIDERS: PCP Internal Medicine; Visit Provider Internal Medicine | DX: E04.2 Nontoxic multinodular goiter (principal) | CPT/HCPCS: Q3014 ==

== ENCOUNTER 2022-07-08 12:28 | Outpatient (REF) | payer MEDICARE, MEDICAID, SELFPAY ==
[2022-07-08 13:19] LABS: Basophils Absolute Auto 0.1 X10*3/uL (0.0-0.2); Basophils Percent Auto 0.8 % (0-2); Eosinophils Absolute Auto 0.1 X10*3/uL (0.0-0.4); Eosinophils Percent Auto 2.1 % (0-4); Hematocrit 40.4 % (42.0-52.0); Hemoglobin 13.2 g/dl (14.0-18.0); Imm Gran Abs Auto 0.01 X10*3/uL (0.00-0.03); Imm Gran Pct Auto 0.2 % (0.0-0.4); Lymphocytes Percent Auto 32.6 % (20-40); MANUAL DIFF FLAG SCAN; Mean Corpuscular HGB Conc 32.7 g/dl (31.0-36.0); Mean Corpuscular Volume 85.6 fL (80.0-98.0); Mean Platelet Volume 11.3 fL (9.4-12.4); Monocytes Absolute Auto 0.4 X10*3/uL (0.1-1.2); Neutrophils Absolute Auto 3.6 x10*3/uL (2.0-8.3); Neutrophils Percent Auto 57.3 % (45-73); Platelet Count 220 X10*3/uL (160-400); Red Blood Count 4.72 X10*6/uL (4.60-5.80); Red Cell Distribution Width 14.1 % (11.0-16.0); SCAN SMEAR FLAG 1; White Blood Count 6.3 X10*3/uL (4.8-10.8)
[2022-07-08 13:41] LABS: Phenytoin Dilantin 14.4 ug/mL (10.0-20.0)
[2022-07-08 13:44] LABS: SLIDE REVIEW VERIFIED
[2022-07-08 14:04] LABS: Alanine Aminotransferase 19 U/L (0-40); Albumin Level 4.1 g/dL (3.5-5.0); Alkaline Phosphatase 133 U/L (39-117); Anion Gap 14 (12-20); Aspartate Amino Transferase 11 U/L (5-37); Bilirubin Total 0.3 mg/dL (0.0-1.0); Blood Urea Nitrogen 15 mg/dL (9-16); Calcium 9.2 mg/dL (8.4-10.2); Carbon Dioxide 23 mmol/L (22-29); Chloride 106 mmol/L (96-108); Cholesterol 197 mg/dL; Estimated Glomerular Filt Rate > 60; Free T4 (Free Thyroxine) 0.82 ng/dL (0.71-1.85); Glucose Random 111 mg/dL (60-115); HDL Cholesterol 34 mg/dL; LDL Cholesterol Calculated 126 mg/dl; Potassium 3.9 mmol/L (3.3-5.1); Sodium 139 mmol/L (135-145); Thyroid Stimulating Hormone 1.17 uIU/mL (0.32-4.0); Total Protein 7.2 g/dL (6.5-8.0); Triglycerides 187 mg/dL
[2022-07-08 14:17] LABS: Folate 6.7 ng/mL (> or = 4.0); Vitamin B12 639 pg/mL (200-900)
== END 2022-07-08 12:29 | disposition home or self-care (01) ==
LOC: HO.LAB 12:28
PROVIDERS: PCP Internal Medicine; Visit Provider Internal Medicine
DX: G40.909 Epilepsy, unspecified, not intractable, without status epilepticus (principal); E78.00 Pure hypercholesterolemia, unspecified
CPT/HCPCS: 36415; 80053; 80061; 80184; 80185; 82607; 82746; 84439; 84443; 85025

== ENCOUNTER 2022-07-27 13:20 | Emergency (ER) | payer MEDICARE, MEDICAID, SELFPAY ==
--- NOTE | ~2022-07-27 | CT_ITS ---
EXAMINATION: CT HEAD W/O IV CONTRAST CT CERVICAL SPINE W/O IV CONTRAST CLINICAL INFORMATION: History of fall with head strike and pain. COMPARISON: 05/16/2021 TECHNIQUE: Head - Contiguous axial imaging of the head was performed from the skull base to the vertex without the administration of intravenous contrast, and axial images are reconstructed at 2 mm and 5 mm slice thickness. Cervical spine - A volumetric, helical CT acquisition of the cervical spine was obtained without contrast; in addition to the standard set of axial images, multiplanar reformatted images were provided in the coronal and sagittal imaging planes. This CT examination was performed using dose optimization techniques as appropriate, variously including the following: *Automated exposure control *Adjustment of mA and/or kV according to patient size (this includes techniques or standardized protocols for targeted exams where dose is matched to indication/reason for exam; i.e. extremities or head) *Use of iterative reconstruction technique DLP: 1458 mGy-cm (total) FINDINGS: HEAD: No intracranial hemorrhage, extra-axial fluid collection, focal mass effect or midline shift. Again noted is the right occipital approach ventricular shunt catheter with catheter tip positioned along the superolateral wall of the body of the lateral ventricle. The third ventricle and lateral ventricles are chronically dilated (right lateral ventricle chronically more prominent than left lateral ventricle), unchanged compared to 05/16/2021. No evidence of an acute major vascular territory infarction. The son-white matter differentiation is maintained. Mild parenchymal volume loss with generalized mild sulcal prominence. No acute findings within the posterior fossa. The cerebellar tonsils are in normal position. No calvarial fracture. There is a mucus retention cyst at the floor of the right maxillary sinus. Otherwise, the paranasal sinuses, mastoid air cells and middle ear cavities are well aerated. Orbits, globes and temporomandibular joints are unremarkable. CERVICAL SPINE: The craniocervical junction is normal. The occipital condyles, dens and atlantodental articulation are intact. The vertebral body heights and alignment are maintained. No fractures in the anterior or posterior elements. No prevertebral soft tissue swelling. Chronic mild multilevel disc space narrowing and osteophyte formation of the cervical spine. Posterior disc-osteophyte complexes chronically produce mild central canal stenosis at C3-C4 and C4-C5. No hematoma in the visualized neck. The left thyroid lobe is chronically larger than the right thyroid lobe. A hypodense nodule of 2.4 cm AP dimension in the right thyroid lobe is new compared to 02/17/2017 and it was shown to be a predominantly cystic nodule prior ultrasound exams (e.g., thyroid ultrasound from 10/28/2021). The solid lesion of the left thyroid lobe has been seen on prior ultrasound exams, including 10/28/2021. CT/CT cervical spine wo IV con IMPRESSION: * No acute intracranial pathology. * The ventriculomegaly is unchanged in appearance compared to 05/16/2021. * No fracture or malalignment in the mildly degenerated cervical spine. * Nodular thyroid gland with left lobe chronically larger than left lobe. Please refer to prior ultrasound thyroid exams, most recent from 02/17/2021.
--- NOTE | 2022-07-27 13:24 | ED_ITS ---
HPI - General Adult General Chief complaint: Fall Stated complaint: FALL,+COLLAR Time Seen by Provider: 07/27/22 13:24 Source: patient, EMS and sign language interpreter Mode of arrival: EMS Limitations: language barrier History of Present Illness HPI narrative: Patient is a 56 year old assigned male at with a history of gait instability presenting to the emergency department today after a fall. Patient states that he attempted to sit on his walker and didn't lock it, causing him to fall backwards and hit his head. Patient denies any loss of consciousness. Patient denies any dizziness, lightheadedness, abdominal pain, nausea, vomiting, fever, chills, blurry vision, double vision, loss of vision, chest pain, difficulty breathing, shortness of breath, back pain, night sweats, pain with urination, increased urinary frequency, increased urinary urgency, blood in his urine or stool, syncope or a near syncopal episode, bowel incontinence, bladder incontinence, bowel retention, bladder retention, or any other complaints at this time. Onset (ago): minute(s) Location: head Radiation: non-radiation Severity: mild Severity scale (1-10): 2 Quality: aching and dull Pain Consistency: constant Relieving factors: none Exacerbating factors: none Associated symptoms: denies other symptoms Treatments prior to arrival: none Related Data Previous Rx's Medication Instructions Recorded hydrocortisone 2.5 % topical cream 1 appl [place] BID-QID PRN hemorrhoids 10/30/20 with perineal applicator #30 grams (Proctosol HC) acetaminophen 325 mg tablet 650 mg PO Q6H PRN pain #40 tabs 06/15/21 (Tylenol) psyllium husk 0.52 gram capsule 0.52 g PO BEDTIME PRN constipation 07/21/21 (Fiber (psyllium husk)) #30 caps phenobarbital 97.2 mg tablet 97.2 mg PO DAILY #90 tabs 10/20/21 phenytoin sodium extended 30 mg 90 mg PO TID 90 days #810 caps 10/20/21 capsule cholecalciferol (vitamin D3) 1,250 1,250 mcg PO QWEEK 12 weeks #12 11/15/21 mcg (50,000 unit) capsule caps folic acid 1 mg tablet 1 mg PO DAILY #90 tabs 01/03/22 omeprazole 20 mg capsule,delayed 20 mg PO DAILY 90 days #90 caps 01/03/22 release Lactobacillus rhamnosus GG 10 1 cap PO BID #14 caps 02/11/22 billion cell capsule (Culturelle) ondansetron 8 mg disintegrating 8 mg PO Q8H PRN nausea and 02/11/22 tablet vomiting #20 tabs cyanocobalamin (vitamin B-12) 1,000 mcg IM Q4W 90 days #4 mL 04/27/22 1,000 mcg/mL injection solution lacosamide 200 mg tablet (Vimpat) 200 mg PO BID 90 days #180 tabs 05/16/22 ROLLATOR with seat #1 ea 07/22/22 Allergies Allergy/AdvReac Type Severity Reaction Status Date / Time No Known Allergies Allergy Verified 07/11/22 14:06 [No Known Allergies*] Review of Systems Constitutional: Constitutional: Reports no additional constitutional complaints, Denies chills, Denies fever(s) and Denies night sweats Eyes: Eyes: Reports no additional eye complaints, Denies blurry vision, Denies change in vision, Denies diplopia, Denies eye discharge, Denies loss of vision and Denies eye pain ENT: Denies dizziness Cardiovascular: Cardiovascular: Reports no additional cardiovascular complaints, Denies chest pain, Denies lightheadedness, Denies Loss of Consciousness and Denies dyspnea Respiratory: Respiratory: Reports no additional respiratory complaints and Denies dyspnea Gastrointestinal: Gastrointestinal: Reports no additional gastrointestinal complaints, Denies abdominal pain, Denies melena, Denies hematochezia, Denies change in bowel habits and Denies change in stool character Genitourinary: Genitourinary: Reports no additional male genitourinary complaints, Denies hematuria, Denies oliguria, Denies difficulty urinating, Denies dysuria, Denies urinary frequency, Denies urinary hesitancy, Denies urinary incontinence and Denies urinary urgency Musculoskeletal: Musculoskeletal: Reports no additional musculoskeletal complaints, Denies numbness and Denies tingling Neurologic: Denies dizziness, Denies loss of vision, Denies numbness and Denies tingling Psychiatric: Psychiatric: Reports no additional psychiatric complaints Endocrine: Endocrine: Reports no additional endocrine complaints Hematologic/Lymphatic: Hematologic/Lymphatic: Reports no additional hematologic/lymphatic complaints Allergic/Immunologic: Allergic/Immunologic: Reports no additional allergic/immunologic complaints PMFSH Past Medical History Attestation statement: The following information was validated with the patient. Source: old records reviewed and nursing notes reviewed Medical History Annual physical exam Aspiration into airway Cataract Chronic static encephalopathy Edentulous Epilepsy History of CVA (cerebrovascular accident) History of meningitis Hypercholesterolemia Mental and behavioral problem Obstructive sleep apnea Preoperative clearance Seizure Seizure disorder Thyroid nodule Tubular adenoma of colon Umbilical hernia Uses walker Vitamin D deficiency Surgical History History of brain surgery History of lung surgery Hx of colonoscopy S/P ACTUARIAL MANAGER shunt Family History Family History Father Myocardial infarction Mother Myocardial infarction Maternal Uncle Prostate cancer Brother Prostate cancer Sister No problems noted. Social History Social History Housing: Apartment Alcohol intake: never Patient Tobacco Use Status: Never used Tobacco e-Cigarette/Vaping Use: Never Used Second Hand Smoke Exposure: No Advance Directives: Yes Advance Directives on File: Yes Advance Directives Date on File: 04/13/21 service: No Current occupational status: disabled Cognitive needs: Yes Hearing needs: No Vision needs: Yes Physical Exam ED Vital Signs: Vital Signs - 24 hr 07/27/22 13:49 Temperature 98.4 F Pulse Rate 81 Respiratory Rate 18 Blood Pressure 147/94 H Pulse Oximetry 98 Oxygen Delivery Method Room Air BMI result Body Mass Index 39.9 Const General: cooperative, no acute distress, alert and awake Nutritional Appearance: well nourished Orientation/consciousness: patient oriented x3 Limitations: no limitations [facility] Head: Yes normal to inspection and Yes atraumatic Ears: hearing grossly normal bilaterally and external ears normal General nose exam: Normal external nose present, no nasal discharge noted and no epistaxis Face and sinus: Yes normal facial exam, No abrasion and No laceration Mouth: Normal oral and palatal mucosa present, no drooling and no muffled voice Eyes General: appearance normal, both eyes and all related structures Periorbital: periorbital findings normal Eyelids: Yes eyelids normal Conjunctivae: conjunctivae normal Pupils: Equal, round and reactive pupils present EOM: EOMs intact bilaterally Neck Neck: Yes normal visual inspection, Yes full ROM and Yes no lymphadenopathy Chest Chest palpation & inspection: normal inspection of the chest Resp Effort & Inspection: normal respiratory effort and able to speak in complete sentences Auscultation: clear to auscultation bilaterally Cardio Rate: regular rate Rhythm: regular rhythm GI Inspection: Yes normal to inspection Neuro General: patient oriented x3 and moves all extremities Cranial nerves: Yes Equal, round and reactive pupils present Cognition (Neuro): normal cognition Motor exam (neuro): 5/5 motor strength present throughout Sensory Exam: Normal double simultaneous stimulation for sensation Coordination: [id number] test normal Extrem General: Yes normal to inspection, Yes full ROM and Yes capillary refill normal Psych Appearance: grossly normal Mental Status: mental status grossly normal Affect: normal affect Attitude: cooperative Thought process: Normal thought process present Thought content: Normal thought content present Insight: Good insight present (Psych) Medical Decision Making Medical Decision Making MDM Narrative: Patient is a 56 year old assigned male at with a history of gait instability presenting to the emergency department today after a fall. Patient's physical exam was unremarkable. Patient's head and C-Spine CTs showed no acute process. I explained my physical exam findings as well as all test results to the patient and the patient's daughter. I answered all questions asked by the patient and the patient's daughter. I stressed the importance of the patient taking his medication as prescribed. I stressed the importance of the patient following up with his primary care provider. I stressed the importance of the patient returning to the emergency department immediately if his symptoms were to worsen or if he were to develop any dizziness, shortness of breath, difficulty breathing, chest pain, blurry vision, loss of vision, nausea, vomiting, abdominal pain, fever, chills, back pain, or any other complaints. Patient verbalized agreement and understanding with this treatment plan and discharge. Differential Diagnosis Differential Diagnoses: The differential diagnosis associated with the presentation includes fall, head strike, closed head injury Radiology Impression Discussion of test interpretation with radiology: I have reviewed the radiologist's reading. Radiologist Impression: EXAMINATION: CT HEAD W/O IV CONTRAST CT CERVICAL SPINE W/O IV CONTRAST CLINICAL INFORMATION: History of fall with head strike and pain. COMPARISON: 05/16/2021 TECHNIQUE: Head - Contiguous axial imaging of the head was performed from the skull base to the vertex without the administration of intravenous contrast, and axial images are reconstructed at 2 mm and 5 mm slice thickness. Cervical spine - A volumetric, helical CT acquisition of the cervical spine was obtained without contrast; in addition to the standard set of axial images, multiplanar reformatted images were provided in the coronal and sagittal imaging planes. This CT examination was performed using dose optimization techniques as appropriate, variously including the following: *Automated exposure control *Adjustment of mA and/or kV according to patient size (this includes techniques or standardized protocols for targeted exams where dose is matched to indication/reason for exam; i.e. extremities or head) *Use of iterative reconstruction technique DLP: 1458 mGy-cm (total) FINDINGS: HEAD: No intracranial hemorrhage, extra-axial fluid collection, focal mass effect or midline shift. Again noted is the right occipital approach ventricular shunt catheter with catheter tip positioned along the superolateral wall of the body of the lateral ventricle. The third ventricle and lateral ventricles are chronically dilated (right lateral ventricle chronically more prominent than left lateral ventricle), unchanged compared to 05/16/2021. No evidence of an acute major vascular territory infarction. The son-white matter differentiation is maintained. Mild parenchymal volume loss with generalized mild sulcal prominence. No acute findings within the posterior fossa. The cerebellar tonsils are in normal position. No calvarial fracture. There is a mucus retention cyst at the floor of the right maxillary sinus. Otherwise, the paranasal sinuses, mastoid air cells and middle ear cavities are well aerated. Orbits, globes and temporomandibular joints are unremarkable. CERVICAL SPINE: The craniocervical junction is normal. The occipital condyles, dens and atlantodental articulation are intact. The vertebral body heights and alignment are maintained.? No fractures in the anterior or posterior elements. No prevertebral soft tissue swelling. Chronic mild multilevel disc space narrowing and osteophyte formation of the cervical spine. Posterior disc-osteophyte complexes chronically produce mild central canal stenosis at C3-C4 and C4-C5. No hematoma in the visualized neck. The left thyroid lobe is chronically larger than the right thyroid lobe. A hypodense nodule of 2.4 cm AP dimension in the right thyroid lobe is new compared to 02/17/2017 and it was shown to be a predominantly cystic nodule prior ultrasound exams (e.g., thyroid ultrasound from 10/28/2021). The solid lesion of the left thyroid lobe has been seen on prior ultrasound exams, including 10/28/2021. CT/CT head/brain wo IV con IMPRESSION: *? No acute intracranial pathology. *? The ventriculomegaly is unchanged in appearance compared to 05/16/2021. *? No fracture or malalignment in the mildly degenerated cervical spine. *? Nodular thyroid gland with left lobe chronically larger than left lobe. Please refer to prior ultrasound thyroid exams, most recent from 02/17/2021. ? Dictated By: Bruno Park MD Signed By: Electronically signed by Bruno Park MD 07/27/22 [id number] Discharge Plan Discharge Clinical Impression: Fall Patient Disposition: Home, Self-Care Instructions: Fall Prevention for Older Adults (ED) Additional Instructions: Follow up with your primary care provider. Return to the emergency department immediately if your symptoms worsen or if you develop any dizziness, shortness of breath, difficulty breathing, chest pain, blurry vision, loss of vision, nausea, vomiting, abdominal pain, fever, chills, back pain, or any other complaints. Madelyn un seguimiento con castañeda proveedor de atenci?n primaria. Regrese a la alexia de emergencias de inmediato si ryann s?ntomas empeoran o si presenta mareos, dificultad para respirar, dolor de pecho, visi?n borrosa, p?rdida de la visi?n, n?useas, v?mitos, dolor abdominal, fiebre, escalofr?os, dolor de espalda o cualquier otras quejas. Prescriptions: No Action phenobarbital 97.2 mg tablet 97.2 mg PO DAILY Qty: 90 0RF phenytoin sodium extended 30 mg capsule 90 mg PO TID 90 Days Qty: 810 3RF cholecalciferol (vitamin D3) 1,250 mcg (50,000 unit) capsule 1,250 mcg PO QWEEK 84 Days Qty: 12 3RF cyanocobalamin (vitamin B-12) 1,000 mcg/mL solution 1,000 mcg IM Q4W 90 Days Qty: 4 3RF Vimpat 200 mg tablet 200 mg PO BID 90 Days Qty: 180 3RF (DME) ROLLATOR with seat See Rx Instructions .Route .MEDSUPPLY Qty: 1 0RF Rx Instructions: As directed hydrocortisone [Proctosol HC] 2.5 % cream with perineal applicator 1 appl IL BID-QID PRN (Reason: hemorrhoids) Qty: 30 0RF acetaminophen [Tylenol] 325 mg tablet 650 mg PO Q6H PRN (Reason: pain) Qty: 40 0RF folic acid 1 mg tablet 1 mg PO DAILY Qty: 90 3RF omeprazole 20 mg capsule,delayed release(DR/EC) 20 mg PO DAILY 90 Days Qty: 90 2RF psyllium husk [Fiber (psyllium husk)] 0.52 gram capsule 0.52 g PO BEDTIME PRN (Reason: constipation) Qty: 30 3RF ondansetron 8 mg tablet,disintegrating 8 mg PO Q8H PRN (Reason: nausea and vomiting) Qty: 20 1RF Culturelle 10 billion cell capsule 1 cap PO BID Qty: 14 0RF Referrals: Po,Veronique Alexander MD [Primary Care Provider] - Interventions: ED Discharge Assessment Last Done: 07/27/22 15:32 Discharge Date/Time: 07/27/22 15:35 Print Language: Taiwanese
[2022-07-27 13:49] VITALS: BP 147/94; BP 153/95; PULSE 81; PULSE 88; RESP 18; TEMP 36.9; O2SAT 98; O2SAT 99; BMI 39.9
== END 2022-07-27 15:35 | disposition home or self-care (01) ==
PROVIDERS: Emergency Provider Student in an Organized Health Care Education/Training Program; PCP Internal Medicine
DX: Z71.1 Person with feared health complaint in whom no diagnosis is made (principal); Z91.81 History of falling; R26.81 Unsteadiness on feet; E78.00 Pure hypercholesterolemia, unspecified; Z86.73 Personal history of transient ischemic attack (TIA), and cerebral infarction without residual deficits; Z79.899 Other long term (current) drug therapy
CPT/HCPCS: 70450; 72125; 99283; 99284

== ENCOUNTER 2022-09-13 14:26 | Outpatient (REF) | payer MEDICARE, MEDICAID, SELFPAY ==
--- NOTE | ~2022-09-13 | US_ITS ---
EXAMINATION: US THYROID CLINICAL INFORMATION: Nontoxic multinodular goiter. COMPARISON: Thyroid ultrasound examinations dating between February 17, 2021 and March 14, 2017. Fine-needle aspiration biopsies dating between February 27, 2020 and October 26, 2017. TECHNIQUE: Linear transducer grayscale and color Doppler examination with attention to the region of the thyroid. FINDINGS: SIZE: Measurements of the thyroid lobes and nodules are given in sagittal, anteroposterior and transverse dimensions respectively. Right Thyroid Lobe: 5.3 x 2.3 x 2.3 cm, volume 14.7 mL. Previously 5.0 x 2.7 x 1.9 cm, volume 13.4 mL. Parenchyma: The gland echotexture is heterogeneous. Thyroid vascularity is increased. Left Thyroid Lobe: 5.6 x 3.1 x 4.1 cm, volume 37.2 mL. Previously 5.1 x 3.0 x 3.6 cm, volume 28.8 mL. Parenchyma: The gland echotexture is heterogeneous. Thyroid vascularity is increased. Isthmus: 0.5 cm in maximum AP dimension. Previously 0.5 cm. Estimated total number of nodules greater than or equal to 1 cm: 2. 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 Location: Right inferior. Size: 3.5 x 2.1 x 1.8 cm, volume 7.1 mL. Previously: 3.6 x 2.2 x 1.8 cm, volume 7.5 mL. Fine-needle aspiration of this nodule was performed on February 27, 2020. Nodule characteristics: Composition: Mixed cystic and solid (1). Echogenicity: Cannot be determined (1). Shape: Taller than wide (3). Margins: Ill-defined (0). Echogenic Foci: None (0). ACR TI-RADS total points: 5 Previous: 5 ACR TI-RADS category: 4 Previous: 4 Significant change in size (>/= 20% in 2 dimensions and minimal increase of 2 mm or 50% or greater increase in volume): No Change in features: No Change in ACR TI-RADS risk category: No 2. Location: Left mid. Size: 4.1 x 2.3 x 3.2 cm, volume 15.6 mL. Previously: 4.2 x 2.6 x 3.4 cm, volume 19.4 mL. In March 2017 this measured 3.8 x 3.0 x 2.5 cm. Fine-needle aspiration of this nodule was performed on October 26, 2017. Nodule characteristics: Composition: Solid (2). Echogenicity: Hyperechoic (1). Shape: Not taller than wide (0). Margins: Smooth (0). Echogenic Foci: None (0). ACR TI-RADS total points: 3 Previous: 3 ACR TI-RADS category: 3 Previous: 3 Significant change in size (>/= 20% in 2 dimensions and minimal increase of 2 mm or 50% or greater increase in volume): No Change in features: No Change in ACR TI-RADS risk category: No NODES: No lymphadenopathy is seen in the tissue surrounding the thyroid gland. US/US thyroid IMPRESSION: Bilateral thyroid nodules, as detailed above. Fine-needle aspiration has been performed on both of these nodules. Recommend clinical correlation. ACR TI-RADS RECOMMENDATION REFERENCE: Ultrasound-guided fine-needle aspiration, followup ultrasound, no further follow up. * TR1 (0 point) and TR2 (2 points): No FNA or follow up. * TR3 (3 points): FNA if more than or equal to 2.5 cm in maximum dimension, followup ultrasound in 1, 3 and 5 years if 1.5 to 2.4 cm in maximum dimension. * TR4 (4-6 points): FNA if more than or equal to 1.5 cm in maximum dimension, followup ultrasound in 1, 2, 3 and 5 years if 1 to 1.4 cm in maximum dimension. * TR5 (more than or equal to 7 points): FNA if more than or equal to 1 cm in maximum dimension, followup ultrasound every year for 5 years if 0.5 to 0.9 cm in maximum dimension. * TR3, TR4 or TR5 nodules that are below the size threshold for followup receive no follow up.
== END 2022-09-13 14:27 | disposition home or self-care (01) ==
LOC: HO.US 14:26
PROVIDERS: PCP Internal Medicine; Visit Provider Internal Medicine
DX: E04.2 Nontoxic multinodular goiter (principal)
CPT/HCPCS: 76536

== ENCOUNTER 2022-11-02 13:11 | Outpatient (REF) | payer MEDICARE, MEDICAID, SELFPAY ==
[2022-11-02 15:22] LABS: Free T4 (Free Thyroxine) 0.78 ng/dL (0.71-1.85); Thyroid Stimulating Hormone 1.31 uIU/mL (0.32-4.0); Vitamin D 25-OH Total 35.3 ng/mL (>30)
== END 2022-11-02 13:12 | disposition home or self-care (01) ==
LOC: HO.LAB 13:11
PROVIDERS: PCP Internal Medicine; Visit Provider Internal Medicine
DX: E04.2 Nontoxic multinodular goiter (principal); E55.9 Vitamin D deficiency, unspecified
CPT/HCPCS: 36415; 82306; 84439; 84443

== ENCOUNTER → 2022-11-10 13:19 | Outpatient (BNVA) | payer MEDICARE, MEDICAID, SELFPAY | PROVIDERS: PCP Internal Medicine; Visit Provider Internal Medicine | DX: E04.2 Nontoxic multinodular goiter (principal) | CPT/HCPCS: 99212 ==

== ENCOUNTER 2023-01-04 06:08 | Outpatient (REF) | payer MEDICARE, MEDICAID, SELFPAY ==
[2023-01-04 06:37] LABS: MANUAL DIFF FLAG NO
[2023-01-04 07:52] LABS: Basophils Percent Auto 0.7 % (0-2); Eosinophils Absolute Auto 0.2 X10*3/uL (0.0-0.4); Eosinophils Percent Auto 3.5 % (0-4); Hematocrit 40.2 % (42.0-52.0); Hemoglobin 13.2 g/dl (14.0-18.0); Imm Gran Abs Auto 0.01 X10*3/uL (0.00-0.03); Imm Gran Pct Auto 0.2 % (0.0-0.4); Immature Retic Fraction 5.2 % (2.3-13.4); Lymphocytes Absolute Auto 1.7 X10*3/uL (1.2-4.9); Lymphocytes Percent Auto 30.8 % (20-40); Mean Corpuscular HGB Conc 32.8 g/dl (31.0-36.0); Mean Corpuscular Volume 85.4 fL (80.0-98.0); Mean Platelet Volume 11.2 fL (9.4-12.4); Monocytes Absolute Auto 0.4 X10*3/uL (0.1-1.2); Monocytes Percent Auto 7.5 % (2-11); Neutrophils Absolute Auto 3.1 x10*3/uL (2.0-8.3); Neutrophils Percent Auto 57.3 % (45-73); Platelet Count 208 X10*3/uL (160-400); Red Blood Count 4.71 X10*6/uL (4.60-5.80); Red Cell Distribution Width 14.5 % (11.0-16.0); Retic HGB Equivalent 32.1 pg (30.0-35.0); Reticulocyte Percent 1.2 % (0.5-1.8); Reticulocytes Absolute 0.057 X10*6/uL (0.026-0.095); White Blood Count 5.4 X10*3/uL (4.8-10.8)
[2023-01-04 08:02] LABS: Estimated Average Glucose 91 mg/dL; Hemoglobin A1C 106.1473 umol/L; Hemoglobin A1c % 4.8 %
[2023-01-04 08:20] LABS: Phenytoin Dilantin 15.3 ug/mL (10.0-20.0)
[2023-01-04 08:30] LABS: Alanine Aminotransferase 11 U/L (0-40); Alkaline Phosphatase 129 U/L (39-117); Anion Gap 11 (12-20); Aspartate Amino Transferase 12 U/L (5-37); Bilirubin Total 0.5 mg/dL (0.0-1.0); Blood Urea Nitrogen 15 mg/dL (9-16); Calcium 8.9 mg/dL (8.4-10.2); Carbon Dioxide 26 mmol/L (22-29); Chloride 107 mmol/L (96-108); Estimated Glomerular Filt Rate > 60; Glucose Random 94 mg/dL (60-115); Iron 146 mcg/dL (45-160); Percent Iron Saturation 60 % (15-50); Potassium 3.8 mmol/L (3.3-5.1); Sodium 140 mmol/L (135-145); Total Iron Binding Capacity 245 mcg/dL (228-428); Unsaturated Iron Binding 99 ug/dL
[2023-01-04 09:03] LABS: Ferritin 205 ng/mL (20-250); Folate 5.7 ng/mL (> or = 4.0); Vitamin B12 545 pg/mL (200-900)
== END 2023-01-04 06:09 | disposition home or self-care (01) ==
LOC: HO.LAB 06:08
PROVIDERS: PCP Internal Medicine; Visit Provider Internal Medicine
DX: G40.909 Epilepsy, unspecified, not intractable, without status epilepticus (principal); R73.01 Impaired fasting glucose; D64.9 Anemia, unspecified; Z79.899 Other long term (current) drug therapy
CPT/HCPCS: 36415; 80053; 80184; 80185; 82607; 82728; 82746; 83036; 83540; 85025; 85045

== ENCOUNTER 2023-03-22 12:34 | Outpatient (AMB) | payer MEDICARE, MEDICAID, SELFPAY ==
--- NOTE | 2023-03-22 13:45 | AM.OFFVISNUR ---
Intake Intake Visit Reasons: B-12 shot Allergies No Known Allergies [No Known Allergies*] Allergy (Verified 01/10/23 13:51) Office Meds cyanocobalamin (vitamin B-12) Performing Provider: Veronique Hare MD Administered by: Jolene Tamayo RN on 03/22/23 13:45 Dose Route Admin Location Lot Number Expiration Date NDC Social Work[facility] 1,000 mcg IM left deltoid [id number] 10/11/24 98937-487-27 [employer] Coding Diagnoses Assessment & Plan Assessment & Plan Orders: Orders AMB Vitamin B12 Injection Patient Supplied Today E53.8 - Deficiency of other specified B group vitamins
== END 2023-03-22 13:45 | disposition home or self-care (01) ==
PROVIDERS: PCP Internal Medicine; Visit Provider Internal Medicine
DX: E53.8 Deficiency of other specified B group vitamins (principal)
CPT/HCPCS: 96372; J3420

== ENCOUNTER 2023-04-21 13:35 | Outpatient (AMB) | payer MEDICARE, MEDICAID, SELFPAY ==
--- NOTE | 2023-04-21 13:44 | AM.OFFVISNUR ---
Intake Intake Visit Reasons: b-12 Allergies No Known Allergies [No Known Allergies*] Allergy (Verified 01/10/23 13:51) Office Meds cyanocobalamin (vitamin B-12) 1,000 mcg/mL injection solution Performing Provider: Veronique Hare MD [facility] Administered by: Jolene Tamayo RN on 04/21/23 13:50 Dose Route Admin Location Dispensed Lot Number Expiration Date NDC Division Engineer 1,000 mcg IM left deltoid 1 mL [id number] 10/11/24 23591-900-39 [employer] Coding Assessment & Plan Assessment & Plan Orders: Orders AMB Vitamin B12 Injection Patient Supplied Today E53.8 - Deficiency of other specified B group vitamins
== END 2023-04-21 13:50 | disposition home or self-care (01) ==
PROVIDERS: PCP Internal Medicine; Visit Provider Internal Medicine
DX: E53.8 Deficiency of other specified B group vitamins (principal)
CPT/HCPCS: 96372; J3420

== ENCOUNTER 2023-06-15 11:08 | Outpatient (AMB) | payer MEDICARE, MEDICAID, SELFPAY ==
--- NOTE | 2023-06-15 11:31 | AM.OFFVISNUR ---
Intake Intake Visit Reasons: B12 Allergies No Known Allergies [No Known Allergies*] Allergy (Verified 04/21/23 13:51) Office Meds cyanocobalamin (vitamin B-12) 1,000 mcg/mL injection solution Performing Provider: Veronique Hare MD [facility] Administered by: Linda Mishra RN on 06/15/23 11:31 Dose Route Admin Location Dispensed Lot Number Expiration Date NDC Nutritional Chemist 1,000 mcg IM left deltoid 1 mL [id number] 12/11/24 25500-356-56 [facility] Coding Assessment & Plan Assessment & Plan Orders: Orders AMB Vitamin B12 Injection Patient Supplied Today E53.8 - Deficiency of other specified B group vitamins
== END 2023-06-15 11:36 | disposition home or self-care (01) ==
PROVIDERS: PCP Internal Medicine; Visit Provider Internal Medicine
DX: E53.8 Deficiency of other specified B group vitamins (principal)
CPT/HCPCS: 96372; J3420

== ENCOUNTER 2023-08-01 06:22 | Outpatient (REF) | payer MEDICARE, MEDICAID, SELFPAY ==
[2023-08-01 06:40] LABS: MANUAL DIFF FLAG NO
[2023-08-01 06:59] LABS: Basophils Absolute Auto 0.1 X10*3/uL (0.0-0.2); Basophils Percent Auto 0.9 % (0-2); Eosinophils Absolute Auto 0.2 X10*3/uL (0.0-0.4); Eosinophils Percent Auto 2.8 % (0-4); Hemoglobin 13.1 g/dl (14.0-18.0); Imm Gran Abs Auto 0.01 X10*3/uL (0.00-0.03); Imm Gran Pct Auto 0.2 % (0.0-0.4); Lymphocytes Absolute Auto 1.8 X10*3/uL (1.2-4.9); Lymphocytes Percent Auto 31.1 % (20-40); Mean Corpuscular HGB Conc 32.8 g/dl (31.0-36.0); Mean Corpuscular Hemoglobin 27.9 pg (27.0-33.0); Mean Corpuscular Volume 85.3 fL (80.0-98.0); Mean Platelet Volume 11.1 fL (9.4-12.4); Monocytes Absolute Auto 0.5 X10*3/uL (0.1-1.2); Monocytes Percent Auto 8.5 % (2-11); Neutrophils Absolute Auto 3.2 x10*3/uL (2.0-8.3); Neutrophils Percent Auto 56.5 % (45-73); Platelet Count 197 X10*3/uL (160-400); Red Blood Count 4.69 X10*6/uL (4.60-5.80); Red Cell Distribution Width 14.2 % (11.0-16.0); White Blood Count 5.6 X10*3/uL (4.8-10.8)
[2023-08-01 07:16] LABS: Phenytoin Dilantin 14.8 ug/mL (10.0-20.0)
[2023-08-01 07:28] LABS: Alanine Aminotransferase 12 U/L (0-40); Albumin Level 3.9 g/dL (3.5-5.0); Alkaline Phosphatase 128 U/L (39-117); Anion Gap 12 (12-20); Aspartate Amino Transferase 14 U/L (5-37); Bilirubin Total 0.4 mg/dL (0.0-1.0); Blood Urea Nitrogen 18 mg/dL (9-16); Calcium 8.9 mg/dL (8.4-10.2); Carbon Dioxide 24 mmol/L (22-29); Chloride 109 mmol/L (96-108); Cholesterol 198 mg/dL (<200); Estimated Glomerular Filt Rate > 60; Glucose Random 107 mg/dL (60-115); HDL Cholesterol 41 mg/dL (>40); LDL Cholesterol Calculated 129 mg/dL (<100); Potassium 3.6 mmol/L (3.3-5.1); Sodium 141 mmol/L (135-145); Total Protein 7.1 g/dL (6.5-8.0); Triglycerides 142 mg/dL (<150)
[2023-08-01 07:45] LABS: Ferritin 199 ng/mL (20-250); Free T4 (Free Thyroxine) 0.72 ng/dL (0.71-1.85); Thyroid Stimulating Hormone 3.15 uIU/mL (0.32-4.0); Vitamin D 25-OH Total 23.9 ng/mL (>30)
[2023-08-01 07:47] LABS: Folate 4.4 ng/mL (> or = 4.0); Vitamin B12 489 pg/mL (200-900)
== END 2023-08-01 06:23 | disposition home or self-care (01) ==
LOC: HO.LAB 06:22
PROVIDERS: PCP Internal Medicine; Visit Provider Internal Medicine
DX: E78.00 Pure hypercholesterolemia, unspecified (principal); G40.909 Epilepsy, unspecified, not intractable, without status epilepticus; Z12.5 Encounter for screening for malignant neoplasm of prostate
CPT/HCPCS: 36415; 80053; 80061; 80184; 80185; 82306; 82607; 82728; 82746; 84153; 84439; 84443; 85025

== ENCOUNTER 2023-08-08 15:06 | Outpatient (AMB) | payer MEDICARE, MEDICAID, SELFPAY ==
[2023-08-08 15:29] VITALS: BP 130/70; PULSE 70; O2SAT 99; BMI 38.6
--- NOTE | 2023-08-08 15:29 | MHC.PC.OV ---
Vital Signs 08/08/23 15:29 Height 5 ft 5 in Weight 232 lb BMI 38.6 BP 130/70 Blood Pressure Location Lt brachial Position Sitting Pulse 70 Pulse Source Pulse Oximeter Pulse Oximetry (%) 99 Oxygen Delivery Method Room Air Intake Visit Reasons: L sided weakness, seizure Band Cutting Machine Operator Required: Yes Band Cutting Machine Operator Language: Slovenian Fact Checker: Present Accompanied by: Sister Allergies No Known Allergies [No Known Allergies*] Allergy (Verified 08/08/23 15:34) Medication List - Last Reconciled 08/08/23 by Veronique Hare MD acetaminophen (Tylenol) 650 mg (2 x 325 mg) PO Q6H PRN [AFO brace As directed] cholecalciferol (vitamin D3) 1,250 mcg PO QWEEK 12 weeks cyanocobalamin (vitamin B-12) 1,000 mcg IM Q4W 90 days folic acid 1 mg PO DAILY hydrocortisone 2.5% (Proctosol HC) 1 appl DE BID-QID PRN ibuprofen 600 mg PO TID PRN lacosamide (Vimpat) 200 mg PO BID 90 days Lactobacillus rhamnosus GG (Culturelle) 1 cap PO BID lidocaine 5% 1 patch topical DAILY omeprazole 20 mg PO DAILY 90 days ondansetron 8 mg PO Q8H PRN phenobarbital 97.2 mg PO DAILY phenytoin sodium extended 100 mg PO TID 90 days psyllium husk (Fiber (psyllium husk)) 0.52 grams PO BEDTIME PRN [ROLLATOR with seat As directed] Tobacco use date assessed: 01/10/23 Dental Screening Dental Screen Date: 08/08/23 Did you have a dental visit in the last 12 months?: No Did you have a dental problem in the last 6 months where you did not have access to dental care?: No Was dental information given to patient?: Patient has dentist HPI L sided weakness, seizure HPI Details 57-year-old obese male with a history of CVA seizure disorder hypercholesterolemia impaired glucose tolerance coming in for follow-up. Last seen in December 2022. Patient had a tubular adenoma June 2018 and advised to follow-up colonoscopy in 5 years. Yasir Marinelli [id number]. 2 seizure s in June. scheduled to see NEurology Dr. Marcial. Otherwise been doing fine complains of some left knee pain and on examination keeps on saying pain all over but no real tenderness. Discussed about weight problem . Patient just had blood work done [facility] Medical History (Updated 08/08/23 @ 16:50 by Veronique Hare MD) Annual physical exam Epilepsy Chronic static encephalopathy Uses walker Seizure Edentulous Cataract Preoperative clearance Aspiration into airway Tubular adenoma of colon Umbilical hernia Mental and behavioral problem History of meningitis Hypercholesterolemia Thyroid nodule Vitamin D deficiency Obstructive sleep apnea History of CVA (cerebrovascular accident) Seizure disorder Surgical History S/P ADVANCED MANUFACTURING VICE PRESIDENT shunt Hx of colonoscopy History of brain surgery History of lung surgery Family History Father Myocardial infarction Mother Myocardial infarction Maternal Uncle Prostate cancer Brother Prostate cancer Sister No problems noted. Social History Housing: Apartment Alcohol intake: never Patient Tobacco Use Status: Never used Tobacco e-Cigarette/Vaping Use: Never Used Second Hand Smoke Exposure: No Advance Directives Date on File: 04/13/21 service: No Current occupational status: disabled Cognitive needs: Yes Hearing needs: No Vision needs: Yes Questionnaire Thrive Questionnaire Date Thrive assessed: 09/23/22 BRENDA-7 AMB Questionnaire BRENDA-7 Date BRENDA - 7 assessed: 09/23/22 Source: Developed by Drs. Feliz Cyr, Kathryn Stratton, Stefan Denise and colleagues, with an educational oliver from [employer]. Physical exam (Primary Care) Vital Signs: Last Vital Signs Pulse 70 08/08/23 15:29 BP 130/70 08/08/23 15:29 Pulse Ox 99 08/08/23 15:29 Oxygen Delivery Method Room Air 08/08/23 15:29 BMI result Body Mass Index 38.6 Tobacco/Smoking Status: Tobacco use Status Tobacco use date assessed 01/10/23 08/08/23 15:37 Patient Tobacco Use Status Never used Tobacco 08/08/23 15:37 e-Cigarette/Vaping Use Never Used 08/08/23 15:37 Thrive Assessment: Date of Thrive Assessment Date Thrive assessed 09/23/22 08/08/23 15:37 Const General: alert; No acute distress Eyes Conjunctivae: conjunctivae normal Resp Auscultation: clear to auscultation bilaterally Cardio Rate: regular rate Rhythm: regular rhythm GI Inspection: Yes normal to inspection Neuro Other: Extremity weakness 4/5, left foot drop cannot do dorsiflexion of the foot. Extrem General: Yes normal to inspection and No edema Immunizations tetanus-diphtheria toxoids-Td 2 Lf unit-2 Lf unit/0.5 mL IM suspension Performing Provider: Veronique Hare MD [facility] Administered by: WM Marcelino on 08/08/23 16:52 Dose Route Admin Location Dispensed Lot Number Expiration Date NDC Taper Machine 0.5 mL IM Left Deltoid 0.5 mL [id number] 12/18/23 [address]-0 [employer] VIS Given Date VIS Provided VIS Publication Date 08/08/23 Single Vaccine 21 Eligibility Eligibility Date Funding Source Not VFC Eligible 08/08/23 [facility] Assessment and Plan Assessment & Plan (1) Seizure disorder: Comment: October 2015 generalized tonic-clonic, 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 Marcial Code(s): G40.909 - Epilepsy, unspecified, not intractable, without status epilepticus Plan: Continue with present medication on Dilantin (2) Obstructive sleep apnea: Comment: Cannot tolerate CPAP Code(s): G47.33 - Obstructive sleep apnea (adult) (pediatric) Plan: Discussed importance of CPAP therapy for obstructive sleep apnea (3) Hypercholesterolemia: Code(s): E78.00 - Pure hypercholesterolemia, unspecified Plan: Avoid fried foods, chicken skin, eggs, butter margarine, pastries and meat. Be it pork or beef they have a lot of cholesterol LDL goal of less than 130 and triglyceride of less than 150 (4) GERD (gastroesophageal reflux disease): Code(s): K21.9 - Gastro-esophageal reflux disease without esophagitis Plan: Avoid the foods that causes that usually spicy foods, tomato products, juices, coffee, soda and foods that your sensitive to. After eating do not lie down, allow 3-4 hours before in lie down. And keep the head of bed above 30 degrees to avoid the acid from going up. (5) Anemia: Code(s): D64.9 - Anemia, unspecified Plan: Stable (6) Obesity (BMI 30-39.9): Code(s): E66.9 - Obesity, unspecified Plan: Diet and exercise (7) Impaired fasting blood sugar: Code(s): R73.01 - Impaired fasting glucose Plan: Decrease the amount of carbohydrate intake, pasta, bread, rice and potatoes are all sugar and that is aside from all the sweet stuff, remember that fruits are good but they are Sweet also. (8) Tubular adenoma of colon: Comment: June 2018 5 years Code(s): D12.6 - Benign neoplasm of colon, unspecified (9) Knee pain, left: Code(s): M25.562 - Pain in left knee Orders: Orders Td State Immunization Today Z23 - Encounter for immunization XR knee LT 2V Today M25.562 - Pain in left knee Referrals Gastroenterology Referral D12.6 - Benign neoplasm of colon, unspecified Coding Level of Care Code Est Pt Level 4 (69120) Diagnoses Seizure disorder G40.909 Obstructive sleep apnea G47.33 Hypercholesterolemia E78.00 GERD (gastroesophageal reflux disease) K21.9 Anemia D64.9 Obesity (BMI 30-39.9) E66.9 Impaired fasting blood sugar R73.01 Tubular adenoma of colon D12.6 Knee pain, left M25.562
== END 2023-08-08 17:01 | disposition home or self-care (01) ==
PROVIDERS: PCP Internal Medicine; Visit Provider Internal Medicine
DX: G40.909 Epilepsy, unspecified, not intractable, without status epilepticus (principal); E66.9 Obesity, unspecified; Z68.38 Body mass index [BMI] 38.0-38.9, adult; Z23 Encounter for immunization; G47.33 Obstructive sleep apnea (adult) (pediatric); E78.00 Pure hypercholesterolemia, unspecified; K21.9 Gastro-esophageal reflux disease without esophagitis; D64.9 Anemia, unspecified; R73.01 Impaired fasting glucose; D12.6 Benign neoplasm of colon, unspecified; M25.562 Pain in left knee
CPT/HCPCS: 90471; 90714; 99214

== ENCOUNTER 2023-08-11 13:31 | Outpatient (AMB) | payer MEDICARE, MEDICAID, SELFPAY ==
--- NOTE | 2023-08-11 13:38 | AM.OFFVISNUR ---
Intake Intake Visit Reasons: b-12 Allergies No Known Allergies [No Known Allergies*] Allergy (Verified 08/08/23 15:34) Office Meds cyanocobalamin (vitamin B-12) 1,000 mcg/mL injection solution Performing Provider: Veronique Hare MD Performing Location: [facility] Administered by: Jolene Tamayo RN on 08/11/23 13:38 Dose Route Admin Location Dispensed Lot Number Expiration Date NDC Freight Separator 1,000 mcg IM left deltoid 1 mL [id number] 10/11/24 95011-502-63 [employer] Coding Assessment & Plan Assessment & Plan Orders: Orders AMB Vitamin B12 Injection Patient Supplied Today D51.9 - Vitamin B12 deficiency anemia, unspecified
== END 2023-08-11 13:39 | disposition home or self-care (01) ==
PROVIDERS: PCP Internal Medicine; Visit Provider Internal Medicine
DX: D51.9 Vitamin B12 deficiency anemia, unspecified (principal)
CPT/HCPCS: 96372; J3420

== ENCOUNTER 2023-08-16 07:33 | Outpatient (REF) | payer MEDICARE, MEDICAID, SELFPAY | END 2023-08-16 07:34 | disposition home or self-care (01) | LOC: HO.XRAY 07:33 | PROVIDERS: PCP Internal Medicine; Visit Provider Internal Medicine | DX: M25.562 Pain in left knee (principal) | CPT/HCPCS: 73560 ==

== ENCOUNTER 2023-10-26 14:51 | Outpatient (AMB) | payer MEDICARE, MEDICAID, SELFPAY ==
--- NOTE | 2023-10-26 14:54 | AM.OFFVISNUR ---
Intake Intake Visit Reasons: B12 Allergies No Known Allergies [No Known Allergies*] Allergy (Verified 08/08/23 15:34) Office Meds cyanocobalamin (vitamin B-12) 1,000 mcg/mL injection solution Performing Provider: Veronique Hare MD [facility] Administered by: Linda Mishra RN on 10/26/23 14:54 Dose Route Admin Location Dispensed Lot Number Expiration Date NDC Pmp Certified Project Manager 1,000 mcg IM Left deltoid 1 mL [id number] 12/11/24 32967-414-93 [facility] Coding Assessment & Plan Assessment & Plan Orders: Orders AMB Vitamin B12 Injection Patient Supplied Today E53.8 - Deficiency of other specified B group vitamins
== END 2023-10-26 14:54 | disposition home or self-care (01) ==
PROVIDERS: PCP Internal Medicine; Visit Provider Internal Medicine
DX: E53.8 Deficiency of other specified B group vitamins (principal)
CPT/HCPCS: 96372; J3420

== ENCOUNTER 2023-11-08 12:48 | Outpatient (AMB) | payer MEDICARE, MEDICAID, SELFPAY ==
[2023-11-08 13:02] VITALS: BP 112/72; PULSE 73; BMI 39.5
--- NOTE | 2023-11-08 13:02 | MHC.OFFVIS ---
Intake Vital Signs 11/08/23 13:02 Height 5 ft 5 in Weight 237 lb 7.005 oz BMI 39.5 BP 112/72 Blood Pressure Location Lt brachial Position Sitting Pulse 73 Pulse Source Pulse Oximeter Intake Visit Reasons: F/U NTMNG-confirmed Intake Note: Patient present today for NTMNG follow up visit. Loss Control Technician Required: Yes Loss Control Technician Language: Sales Applications Engineer Name: Anne Information Interpreted: non-clinical & clinical Accompanied by: Sister Allergies No Known Allergies [No Known Allergies*] Allergy (Verified 11/08/23 13:10) HPI HPI Comments History of Present Illness Details 57 YO Male with a PMHx of a multinodular thyroid who is seen in F/U for the same. He was previously followed by Dr. Machado. The patient last saw Dr. Arnold on 11/10/2022 He has a multinodular thyroid and underwent 2 FNA biopsies in the past: 10/26/2017: L upper lobe 3.8 x 2.5 x 3.0 cm - benign cytology 02/27/2020: R mid pole 2.8 x 1.7 x 1.6 cm - benign cytology He had an US of the thyroid 02/17/2021 which did reveal interval growth of the RMP thyroid nodule. There was slight growth of the LUP thyroid nodule, but not sufficient to warrant repeat FNA. He presented for repeat FNA bipsy 10/28/2021, but at that time his LUP nodule was measured to be 3.8 cm, unchanged from prior, thus no repeat FNA biopsy was indicated or completed. He currently reports feeling well. He dysphagia or hoarseness of his voice. US Thyroid: 09/13/2022 Right Thyroid Lobe: 5.3 x 2.3 x 2.3 cm, volume 14.7 mL. Previously 5.0 x 2.7 x 1.9 cm, volume 13.4 mL. Parenchyma: The gland echotexture is heterogeneous. Thyroid vascularity is increased. Left Thyroid Lobe: 5.6 x 3.1 x 4.1 cm, volume 37.2 mL. Previously 5.1 x 3.0 x 3.6 cm, volume 28.8 mL. Parenchyma: The gland echotexture is heterogeneous. Thyroid vascularity is increased. Isthmus: 0.5 cm in maximum AP dimension. Previously 0.5 cm. Estimated total number of nodules greater than or equal to 1 cm: 2. Chainstitch Tunnel Elastic Operator nodules are described as follows: 1.? Location: Right inferior. ?? ? Size: 3.5 x 2.1 x 1.8 cm, volume 7.1 mL. ?? ? Previously: 3.6 x 2.2 x 1.8 cm, volume 7.5 mL. Fine-needle aspiration of this nodule was performed on February 27, 2020. ?? ? Nodule characteristics: ?? ? Composition: Mixed cystic and solid (1). ?? ? Echogenicity: Cannot be determined (1). ?? ? Shape: Taller than wide (3). ?? ? Margins: Ill-defined (0). ?? ? Echogenic Foci: None (0). ? ACR TI-RADS total points: 5 Previous: 5 ?? ? ACR TI-RADS category: 4 Previous: 4 ? Significant change in size (>/= 20% in 2 dimensions and minimal increase of 2 mm or 50% or greater increase in volume): No ?? ? Change in features: No ?? ? Change in ACR TI-RADS risk category: No 2.? Location: Left mid. ?? ? Size: 4.1 x 2.3 x 3.2 cm, volume 15.6 mL. ?? ? Previously: 4.2 x 2.6 x 3.4 cm, volume 19.4 mL. In March 2017 this measured 3.8 x 3.0 x 2.5 cm. Fine-needle aspiration of this nodule was performed on October 26, 2017. ?? ? Nodule characteristics: ?? ? Composition: Solid (2). ?? ? Echogenicity: Hyperechoic (1). ?? ? Shape: Not taller than wide (0). ?? ? Margins: Smooth (0). ?? ? Echogenic Foci: None (0). ?? ? ACR TI-RADS total points: 3 Previous: 3 ?? ? ACR TI-RADS category: 3 Previous: 3 ? Significant change in size (>/= 20% in 2 dimensions and minimal increase of 2 mm or 50% or greater increase in volume): No ?? ? Change in features: No ?? ? Change in ACR TI-RADS risk category: No NODES: No lymphadenopathy is seen in the tissue surrounding the thyroid gland. Labs: Laboratory Tests 11/02/22 13:23 25-OH Vitamin D To farhat 35.3 TSH 1.31 Free T4 0.78 He denies obstructive symptoms PFSH Medical History (Updated 08/08/23 @ 16:50 by Veronique Hare MD) Annual physical exam Epilepsy Chronic static encephalopathy Uses walker Seizure Edentulous Cataract Preoperative clearance Aspiration into airway Tubular adenoma of colon Umbilical hernia Mental and behavioral problem History of meningitis Hypercholesterolemia Thyroid nodule Vitamin D deficiency Obstructive sleep apnea History of CVA (cerebrovascular accident) Seizure disorder Surgical History S/P CORPORATE CONTROLLER shunt Hx of colonoscopy History of brain surgery History of lung surgery Family History Father Myocardial infarction Mother Myocardial infarction Maternal Uncle Prostate cancer Brother Prostate cancer Sister No problems noted. Social History Housing: Apartment Alcohol intake: never Patient Tobacco Use Status: Never used Tobacco e-Cigarette/Vaping Use: Never Used Second Hand Smoke Exposure: No Advance Directives Date on File: 04/13/21 service: No Current occupational status: disabled Cognitive needs: Yes Hearing needs: No Vision needs: Yes Physical Exam Const Other: Thyroid gland is large in size weighs about 20 g. There are no palpable thyroid nodule Assessment & Plan Assessment & Plan (1) Non-toxic multinodular goiter: Code(s): E04.2 - Nontoxic multinodular goiter Plan: This is a 58-year-old male with a history of multinodular goiter status post FNA 10/26/2017: L upper lobe 3.8 x 2.5 x 3.0 cm - benign cytology 02/27/2020: R mid pole 2.8 x 1.7 x 1.6 cm - benign cytology. He appears to be clinically and biochemically euthyroid . Plan is that patient repeat thyroid ultrasound to track the size of the nodule Coding Level of Care Code Est Pt Level 3 (36813) Diagnoses Non-toxic multinodular goiter E04.2
== END 2023-11-08 13:27 | disposition home or self-care (01) ==
PROVIDERS: PCP Internal Medicine; Visit Provider Internal Medicine Endocrinology, Diabetes & Metabolism
DX: E04.2 Nontoxic multinodular goiter (principal)
CPT/HCPCS: 99213

== ENCOUNTER → 2023-11-08 12:48 | Outpatient (BNVA) | payer MEDICARE, MEDICAID, SELFPAY | PROVIDERS: Visit Provider Internal Medicine Endocrinology, Diabetes & Metabolism | DX: E04.2 Nontoxic multinodular goiter (principal) | CPT/HCPCS: 99212 ==

== ENCOUNTER 2023-11-24 13:43 | Outpatient (AMB) | payer MEDICARE, MEDICAID, SELFPAY ==
[2023-11-24 13:45] VITALS: BP 128/76; PULSE 64; O2SAT 97; BMI 39.6
--- NOTE | 2023-11-24 13:45 | A.OFFVIS_ITS ---
Intake Vital Signs 3 11/24/23 13:45 Height 5 ft 5 in Weight 238 lb BMI 39.6 BP 128/76 Blood Pressure Location Lt brachial Position Sitting Pulse 64 Pulse Source Pulse Oximeter Pulse Oximetry (%) 97 Oxygen Delivery Method Room Air Intake Visit Reasons: annual wellness Certified Family Mediator Required: Yes Certified Family Mediator Language: [place] Citizen Allergies No Known Allergies [No Known Allergies*] Allergy (Verified 11/24/23 13:48) Medication List - Last Reconciled 11/24/23 by Veronique Hare MD [AFO brace As directed] amoxicillin-pot clavulanate 500-125 mg 1 tab PO Q12H cholecalciferol (vitamin D3) 1,250 mcg PO QWEEK 12 weeks cyanocobalamin (vitamin B-12) 1,000 mcg IM Q4W 90 days folic acid 1 mg PO DAILY hydrocortisone 2.5% (Proctosol HC) 1 appl [place] BID-QID PRN lacosamide (Vimpat) 200 mg PO BID 90 days Lactobacillus rhamnosus GG (Culturelle) 1 cap PO BID lidocaine 5% 1 patch topical DAILY omeprazole 20 mg PO DAILY 90 days phenobarbital 97.2 mg PO DAILY phenytoin sodium extended 100 mg PO TID 90 days psyllium husk (Fiber (psyllium husk)) 0.52 grams PO BEDTIME PRN [ROLLATOR with seat As directed] HPI annual wellness 2 HPI0 Details 58-year-old obese male with a history of seizure disorder obstructive sleep apnea hypercholesterolemia GERD anemia of chronic disease impaired glucose tolerance last seen in July 2023 patient is here for an annual well visit.. Review of the notes was seen by the cardio tech in October 2023 has a nontoxic multinodular goiter has had 2 fine needle aspiration biopsies both benign and so presently continuing to just repeat ultrasound for monitoring. laurie [id number], [id number] noted mass on the posterior neck area painful . last US thyroid 08/2022 [facility] Medical History (Updated 11/24/23 @ 16:08 by Veronique Hare MD) Oropharyngeal dysphagia Annual physical exam Epilepsy Chronic static encephalopathy Uses walker Seizure Edentulous Cataract Preoperative clearance Aspiration into airway Tubular adenoma of colon Umbilical hernia Mental and behavioral problem History of meningitis Hypercholesterolemia Thyroid nodule Vitamin D deficiency Obstructive sleep apnea History of CVA (cerebrovascular accident) Seizure disorder Surgical History S/P AMPOULE FILLER AND SEALER shunt Hx of colonoscopy History of brain surgery History of lung surgery Family History Father Myocardial infarction Mother Myocardial infarction Maternal Uncle Prostate cancer Brother Prostate cancer Sister No problems noted. Social History Housing: Apartment Alcohol intake: never Patient Tobacco Use Status: Never used Tobacco e-Cigarette/Vaping Use: Never Used Second Hand Smoke Exposure: No Advance Directives Date on File: 04/13/21 service: No Current occupational status: disabled Cognitive needs: Yes Hearing needs: No Vision needs: Yes Questionnaire Medicare Wellness Checkup What [age] your [age]?: 65-69 (58) What gender do you identify with?: male During the past 4 weeks, how much have you been bothered by emotional problems such as feeling anxious, depressed, irritable, sad or downhearted, and blue?: n ot at all During the past 4 weeks, has your physical & emotional health limited your social activities with family, friends, neighbors, or groups?: not at all During the past 4 weeks, how much bodily pain have you generally had?: no pain During the past 4 weeks, was someone available to help you if you needed & wanted help?: no, not at all During the past 4 weeks, what was the hardest physical activity you could do for at least 2 minutes?: very light Can you get to places out of walking distance without help? (For eg., can you travel alone on buses, taxis or drive your car?): Yes Can you go shopping for groceries or clothes without someone's help?: No Can you prepare your own meals?: No Can you do your housework without help?: No Because of any health problems, do you need the help of another person with your personal care needs such as eating, bathing, dressing or getting around the house?: Yes Can you handle your own money without help?: No During the past 4 weeks, how would you rate your health in general?: good During the past 4 weeks how have things been going for you?: pretty well Are you having difficulties driving your car?: not applicable, I don't use a car Do you always fasten your seat belt when you are in a car?: no During past 4 weeks, have you been bothered by the following: never: Falling or dizzy when standing up, Sexual problems?, Trouble eating well?, Teeth or denture problems?, Problems using the telephone? and Tiredness or fatigue? Have you fallen 2 or more times in the past year?: No Are you afraid of falling?: Yes Are you a smoker?: no During the past 4 weeks, how many drinks of wine, beer, or other alcoholic beverages did you have?: no alcohol at all Do you exercise for about 20 minutes 3 or more times a week?: yes, some of the time Have you been given information to help with the following?: no: Hazards in your house that might hurt you? and no: Keeping track of your medications? How often do you have trouble taking medicines the way you have been told to take them?: sometimes I take medicine as prescribed How confident are you that you can control & manage most of your health problems?: I do not have any health problems What is your race?: or origin or descent PHQ-9 Over the last 2 weeks, how often have you been bothered by any of the following problems? 1. Little interest or pleasure in doing things: nearly every day 2. Feeling down, depressed, or hopeless: not at all 3. Trouble falling or staying asleep, or sleeping too much: not at all 4. Feeling tired or having little energy: not at all 5. Poor appetite or overeating: not at all 6. Feeling bad about yourself - or that you are a failure or have let yourself or your family down: not at all 7. Trouble concentrating on things, such as reading the newspaper or watching television: not at all 8. Moving or speaking so slowly that other people could have noticed. Or the opposite - being so fidgety or restless that you have been moving around a lot more than usual: not at all 9. Thoughts that you would be better off or of hurting yourself in some way: not at all Total score: 3 Depression Screening Interpretation: Positive Depression Screening Done: Yes 40405 - PHQ-9 Billing: Yes Source: Developed by Drs. Feliz Cyr, Kathryn Stratton, Stefan Denise and colleagues, with an educational oliver from [employer]. Review of Systems Const Denies poor appetite and Denies weakness Eyes Denies no additional complaints ENT Reports Normal hearing present, Denies dizziness, Denies nasal congestion, Denies tinnitus and Denies sore throat Card Denies chest pain, Denies syncope, Denies rapid heart rate and Denies dyspnea Resp Denies cough and Denies dyspnea GI Denies change in stool character, Reports constipation, Denies diarrhea, Denies nausea and Denies vomiting Denies dysuria and Denies urinary frequency Neuro Reports Normal hearing present, Denies confusion, Denies dizziness, Denies syncope and Denies weakness Psych Denies confusion Physical Exam Vital Signs: Last Vital Signs Pulse 64 11/24/23 13:45 BP 128/76 11/24/23 13:45 Pulse Ox 97 11/24/23 13:45 Oxygen Delivery Method Room Air 11/24/23 13:45 BMI result Body Mass Index 39.6 Const General: No confusion Orientation/consciousness: No confusion HEENT Other: Posterior neck has 2 x 2 cm mass Head: Yes normocephalic Head images: 2 1. Mildly tender mildly red 2 x 2 cm mass Ears: external ears normal and TM's normal bilaterally Face and sinus: Yes normal facial exam Mouth: moist mucous membranes Throat: Yes tonsils normal Eyes Conjunctivae: conjunctival abnormal (Pale palpebral conjunctiva) Neck Neck: No lymphadenopathy Thyroid: Thyroid normal Chest Chest palpation & inspection: normal inspection of the chest Resp Effort & Inspection: normal respiratory effort and no audible wheezes Auscultation: clear to auscultation bilaterally, no crackles, no wheezes and lung sounds not diminished Cardio Rate: regular rate Rhythm: regular rhythm Peripheral pulses: radial pulses present and dorsalis pedis present GI Other: Patient will be having colonoscopy Palpation (GI): no masses Auscultation: normal bowel sounds and normoactive bowel sounds Rectal Exam - Male: Yes deferred Male General Exam: Yes normal external exam Skin General skin exam: no rashes or lesions noted Rashes: no rashes Neuro Other: 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 General: No edema Assessment & Plan Assessment & Plan (1) Medicare annual wellness visit, subsequent: Code(s): Z00.00 - Encounter for general adult medical examination without abnormal findings Plan: Keep well hydrated eat healthy and keep active (2) Obesity (BMI 30-39.9): Code(s): E66.9 - Obesity, unspecified Plan: Diet and exercise noted increase in weight every time patient being seen. 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 Holley Code(s): G40.909 - Epilepsy, unspecified, not intractable, without status epilepticus Plan: Continue to take present medication and follow-up with Neurology. Repeat testing for Depakote and Dilantin levels (4) History of CVA (cerebrovascular accident): Comment: Left hemiparesis Code(s): Z86.73 - Personal history of transient ischemic attack (TIA), and cerebral infarction without residual deficits Plan: Keep active Control the cholesterol, weight, blood pressure (5) Obstructive sleep apnea: Comment: Cannot tolerate CPAP Code(s): G47.33 - Obstructive sleep apnea (adult) (pediatric) Plan: Discussed importance of sleep apnea treatment (6) Hypercholesterolemia: Code(s): E78.00 - Pure hypercholesterolemia, unspecified Plan: Avoid fried foods, chicken skin, eggs, butter margarine, pastries and meat. Be it pork or beef they have a lot of cholesterol LDL goal of less than 130 and triglyceride of less than 150 (7) GERD (gastroesophageal reflux disease): Code(s): K21.9 - Gastro-esophageal reflux disease without esophagitis Qualifiers: Esophagitis presence: without esophagitis Qualified Code(s): K21.9 - Gastro-esophageal reflux disease without esophagitis Plan: Avoid the foods that causes that usually spicy foods, tomato products, juices, coffee, soda and foods that your sensitive to. After eating do not lie down, allow 3-4 hours before in lie down. And keep the head of bed above 30 degrees to avoid the acid from going up. (8) Anemia: Code(s): D64.9 - Anemia, unspecified Qualifiers: Anemia type: unspecified type Qualified Code(s): D64.9 - Anemia, unspecified Plan: Anemia of chronic disease continue to monitor (9) Non-toxic multinodular goiter: Code(s): E04.2 - Nontoxic multinodular goiter Plan: Patient has seen endocrinology and continuing to monitor the size of the thyroid. (10) Knee pain, left: Code(s): M25.562 - Pain in left knee Qualifiers: Chronicity: acute Qualified Code(s): M25.562 - Pain in left knee Plan: Keep active try to lose the weight. (11) Tubular adenoma of colon: Comment: June 2018 5 years Code(s): D12.6 - Benign neoplasm of colon, unspecified Plan: Discussed the patient about the colon test needed. (12) Sebaceous cyst: Code(s): L72.3 - Sebaceous cyst Plan: Patient is referred to the surgeon and antibiotic prescription sent. Orders: Orders 2 Phenytoin Dilantin Today G40.909 - Epilepsy, unspecified, not intractable, without status epilepticus Complete Blood Count Auto Diff Today G40.909 - Epilepsy, unspecified, not intractable, without status epilepticus Comprehensive Met. Panel Today G40.909 - Epilepsy, unspecified, not intractable, without status epilepticus Valproate Today G40.909 - Epilepsy, unspecified, not intractable, without status epilepticus Referrals 2 General Surgery Referral L72.3 - Sebaceous cyst Medications: New 2 amoxicillin-pot clavulanate 500-125 mg 1 tab PO Q12H 14 tabs 0RF L72.3 - Sebaceous cyst Refilled 2 acetaminophen (Tylenol) 650 mg (2 x 325 mg) PO Q6H PRN 60 tabs 0RF pain R10.11 - Right upper quadrant pain Quality Reporting (2019) Depression/Bipolar (159/160/161/177) PHQ-9: Total score: 3 Coding Level of Care Code Medicare Subsequent (G0439) Diagnoses Medicare annual wellness visit, subsequent Z00.00 Obesity (BMI 30-39.9) E66.9 Seizure disorder G40.909 History of CVA (cerebrovascular accident) Z86.73 Obstructive sleep apnea G47.33 Hypercholesterolemia E78.00 Gastroesophageal reflux disease without esophagitis K21.9 Esophagitis presence: without esophagitis Anemia, unspecified type D64.9 Anemia type: unspecified type Non-toxic multinodular goiter E04.2 Acute pain of left knee M25.562 Chronicity: acute Tubular adenoma of colon D12.6 Sebaceous cyst L72.3
== END 2023-11-24 16:03 | disposition home or self-care (01) ==
PROVIDERS: PCP Internal Medicine; Visit Provider Internal Medicine
DX: Z00.00 Encounter for general adult medical examination without abnormal findings (principal); G40.909 Epilepsy, unspecified, not intractable, without status epilepticus; I69.354 Hemiplegia and hemiparesis following cerebral infarction affecting left non-dominant side; G47.33 Obstructive sleep apnea (adult) (pediatric); E78.00 Pure hypercholesterolemia, unspecified; K21.9 Gastro-esophageal reflux disease without esophagitis; D64.9 Anemia, unspecified; E04.2 Nontoxic multinodular goiter; M25.562 Pain in left knee; D12.6 Benign neoplasm of colon, unspecified; L72.3 Sebaceous cyst
CPT/HCPCS: G0439

== ENCOUNTER 2023-12-19 13:29 | Outpatient (AMB) | payer MEDICARE, MEDICAID, SELFPAY ==
--- NOTE | 2023-12-19 13:30 | A.OFFVIS_ITS ---
Vital Signs 3 12/19/23 13:32 Height 5 ft 5 in Weight 258 lb BMI 42.9 Intake Visit Reasons: sebaceous cyst Intake Note: This patient presents for an assessment for sebaceous cyst posterior neck. Patient c/o; reports decreased in size, reports completed course of amoxicillin. Informatics Physician Required: Yes Informatics Physician Language: Italian Information Interpreted: non-clinical & clinical Accompanied by: Sister Allergies No Known Allergies [No Known Allergies*] Allergy (Verified 12/19/23 13:37) Medication List - Last Reconciled 12/19/23 by Aries Wallace MD acetaminophen (Tylenol) 650 mg (2 x 325 mg) PO Q6H PRN [AFO brace As directed] cholecalciferol (vitamin D3) 1,250 mcg PO QWEEK 12 weeks cyanocobalamin (vitamin B-12) 1,000 mcg IM Q4W 90 days folic acid 1 mg PO DAILY hydrocortisone 2.5% (Proctosol HC) 1 appl [place] BID-QID PRN lacosamide (Vimpat) 200 mg PO BID 90 days Lactobacillus rhamnosus GG (Culturelle) 1 cap PO BID lidocaine 5% 1 patch topical DAILY omeprazole 20 mg PO DAILY 90 days phenobarbital 97.2 mg PO DAILY phenytoin sodium extended 100 mg PO TID 90 days psyllium husk (Fiber (psyllium husk)) 0.52 grams PO BEDTIME PRN [ROLLATOR with seat As directed] HPI Comments Details: 58-year-old male patient presenting for evaluation of an epidermal inclusion cyst of the posterior neck. This is been present for several years but has recently became infected requiring oral antibiotics. After taking a course of antibiotics the lesion decreased in size and became much smaller. He denies any pain associated with the lesion currently. He denies a previous history of surgery in this location. He is requesting excision of this lesion. [facility] Medical History Oropharyngeal dysphagia Annual physical exam Epilepsy Chronic static encephalopathy Uses walker Seizure Edentulous Cataract Preoperative clearance Aspiration into airway Tubular adenoma of colon Umbilical hernia Mental and behavioral problem History of meningitis Hypercholesterolemia Thyroid nodule Vitamin D deficiency Obstructive sleep apnea History of CVA (cerebrovascular accident) Seizure disorder Surgical History S/P KEYBOARD INSTRUMENT TUNER shunt Hx of colonoscopy History of brain surgery History of lung surgery Family History Father Myocardial infarction Mother Myocardial infarction Maternal Uncle Prostate cancer Brother Prostate cancer Sister No problems noted. Social History Housing: Apartment Alcohol intake: never Patient Tobacco Use Status: Never used Tobacco e-Cigarette/Vaping Use: Never Used Second Hand Smoke Exposure: No Advance Directives Date on File: 04/13/21 service: No Current occupational status: disabled Cognitive needs: Yes Hearing needs: No Vision needs: Yes Review of Systems Const All systems reviewed & are unremarkable except as noted in HPI and below Denies chills, Denies fever(s), Denies headache(s), Denies poor appetite and Reports weakness ENT Denies headache(s) Card Denies chest pain, Denies irregular heart rhythm, Denies palpitations and Denies dyspnea Resp Denies cough, Denies excessive phlegm production and Denies dyspnea GI Denies abdominal pain, Denies bloating, Denies change in bowel habits, Denies constipation, Denies heartburn, Denies diarrhea, Denies nausea and Denies vomiting Denies difficulty urinating and Denies urinary frequency Musc Denies back pain, Denies muscle weakness and Reports numbness Skin/Breast Denies changing lesions and Denies unusual bruising Neuro Denies headache(s), Reports numbness, Reports paresthesias and Reports weakness Psych Denies anxiety and Denies depression Endo Denies palpitations Dyllan/Lymph Denies lymphadenopathy Physical Exam Const General: cooperative and no acute distress Nutritional Appearance: well nourished Orientation/consciousness: patient oriented x3 Limitations: no limitations HEENT Head: Yes normocephalic and Yes atraumatic Ears: hearing grossly normal bilaterally Neck Other: Palpable epidermal inclusion cyst in the posterior neck measuring approximately 1 cm in diameter. No erythema noted in the surrounding skin. No tenderness to palpation at this time. Neck images: 2 1. Site of epidermal inclusion cyst just above the hairline. 1 cm in diameter. Resp Effort & Inspection: normal respiratory effort, no audible wheezes, no cough and no respiratory distress Cardio Jugular venous distension: no JVD GI Inspection: Yes normal to inspection Skin Other: Warm, dry, no rash Neuro General: patient oriented x3 Extrem General: Yes no clubbing, cyanosis or edema Assessment & Plan Assessment & Plan (1) Sebaceous cyst: Code(s): L72.3 - Sebaceous cyst Category: Medical Plan 58-year-old male patient presenting for evaluation of a sebaceous cyst of the posterior neck which was recently infected but has now settled after a course of antibiotics. On examination he has a 1 cm epidermal inclusion cyst in the posterior neck just above the hairline which is currently not infected. I reviewed the procedure, risks and alternatives to excision of this epidermal inclusion cyst. He consents to the procedure which will be performed as an office procedure his earliest convenience. Coding Level of Care Code New Pt Level 4 (39905) Diagnoses Sebaceous cyst L72.3
[2023-12-19 13:32] VITALS: BMI 42.9
== END 2023-12-19 13:47 | disposition home or self-care (01) ==
PROVIDERS: PCP Internal Medicine; Visit Provider Surgery
DX: L72.3 Sebaceous cyst (principal)
CPT/HCPCS: 99204

== ENCOUNTER → 2023-12-19 13:29 | Outpatient (BNVA) | payer MEDICARE, MEDICAID, SELFPAY | PROVIDERS: PCP Internal Medicine; Visit Provider Surgery | DX: L72.3 Sebaceous cyst (principal) | CPT/HCPCS: 99202 ==

== ENCOUNTER 2024-01-09 12:03 | Outpatient (AMB) | payer MEDICARE, MEDICAID, SELFPAY ==
--- NOTE | 2024-01-09 12:17 | AM.OFFVISNUR ---
Intake Intake Visit Reasons: b-12 shot Allergies No Known Allergies [No Known Allergies*] Allergy (Verified 12/19/23 13:37) Office Meds cyanocobalamin (vitamin B-12) 1,000 mcg/mL injection solution Performing Provider: Veronique Hare MD [facility] Administered by: Breann Carcamo RN on 01/09/24 12:19 Dose Route Admin Location Dispensed Lot Number Expiration Date NDC Commercial Underwriter 1,000 mcg IM 1 mL [id number] 02/08/25 43435-483-93 [facility] Coding Assessment & Plan Assessment & Plan Orders: Orders AMB Vitamin B12 Injection Patient Supplied Today E53.8 - Deficiency of other specified B group vitamins Medications: New cyanocobalamin (vitamin B-12) 1,000 mcg IM ONCE 1 mL 0RF E53.8 - Deficiency of other specified B group vitamins
== END 2024-01-09 12:22 | disposition home or self-care (01) ==
LOC: HO.HMGH 12:03
PROVIDERS: PCP Internal Medicine; Visit Provider Internal Medicine
DX: E53.8 Deficiency of other specified B group vitamins (principal)
CPT/HCPCS: 96372; J3420

== ENCOUNTER 2024-01-23 05:56 | Outpatient (REF) | payer MEDICARE, MEDICAID, SELFPAY ==
[2024-01-23 06:19] LABS: MANUAL DIFF FLAG NO
[2024-01-23 07:36] LABS: Basophils Absolute Auto 0.1 X10*3/uL (0.0-0.2); Basophils Percent Auto 0.9 % (0-2); Eosinophils Absolute Auto 0.2 X10*3/uL (0.0-0.4); Eosinophils Percent Auto 2.3 % (0-4); Hematocrit 39.3 % (42.0-52.0); Imm Gran Abs Auto 0.01 X10*3/uL (0.00-0.03); Imm Gran Pct Auto 0.2 % (0.0-0.4); Lymphocytes Absolute Auto 1.7 X10*3/uL (1.2-4.9); Lymphocytes Percent Auto 25.8 % (20-40); Mean Corpuscular HGB Conc 33.1 g/dl (31.0-36.0); Mean Corpuscular Hemoglobin 28.3 pg (27.0-33.0); Mean Corpuscular Volume 85.4 fL (80.0-98.0); Mean Platelet Volume 11.6 fL (9.4-12.4); Monocytes Absolute Auto 0.6 X10*3/uL (0.1-1.2); Monocytes Percent Auto 8.5 % (2-11); Neutrophils Percent Auto 62.3 % (45-73); Platelet Count 219 X10*3/uL (160-400); Red Cell Distribution Width 14.5 % (11.0-16.0); White Blood Count 6.5 X10*3/uL (4.8-10.8)
[2024-01-23 07:48] LABS: Alanine Aminotransferase 13 U/L (0-40); Alkaline Phosphatase 134 U/L (39-117); Anion Gap 13 (12-20); Aspartate Amino Transferase 13 U/L (5-37); Bilirubin Total 0.2 mg/dL (0.0-1.0); Blood Urea Nitrogen 15 mg/dL (9-16); Calcium 9.3 mg/dL (8.4-10.2); Carbon Dioxide 25 mmol/L (22-29); Chloride 109 mmol/L (96-108); Estimated Glomerular Filt Rate > 60; Glucose Random 109 mg/dL (60-115); Potassium 3.5 mmol/L (3.3-5.1); Sodium 143 mmol/L (135-145); Total Protein 7.2 g/dL (6.5-8.0)
[2024-01-23 07:54] LABS: Phenytoin Dilantin 6.8 ug/mL (10.0-20.0); Valproate < 12.5 mcg/mL (50.0-100.0)
== END 2024-01-23 05:57 | disposition home or self-care (01) ==
LOC: HO.LAB 05:56
PROVIDERS: PCP Internal Medicine; Visit Provider Internal Medicine
DX: G40.909 Epilepsy, unspecified, not intractable, without status epilepticus (principal)
CPT/HCPCS: 36415; 80053; 80164; 80185; 85025

== ENCOUNTER 2024-02-07 07:50 | Outpatient (AMB) | payer MEDICARE, MEDICAID, SELFPAY ==
[2024-02-07 08:17] VITALS: BP 132/70; PULSE 54; O2SAT 99; BMI 38.7
--- NOTE | 2024-02-07 08:17 | MHC.PC.OV ---
Vital Signs 02/07/24 08:17 Height 5 ft 5 in Weight 232 lb 9.403 oz BMI 38.7 BP 132/70 Blood Pressure Location Lt brachial Position Sitting Pulse 54 Pulse Source Pulse Oximeter Pulse Oximetry (%) 99 Oxygen Delivery Method Room Air Intake Visit Reasons: seizure disorder Allergies No Known Allergies [No Known Allergies*] Allergy (Verified 02/07/24 08:17) Medication List - Last Reconciled 02/07/24 by Veronique Hare MD acetaminophen (Tylenol) 650 mg (2 x 325 mg) PO Q6H PRN [AFO brace As directed] cholecalciferol (vitamin D3) 1,250 mcg PO QWEEK 12 weeks cyanocobalamin (vitamin B-12) 1,000 mcg IM Q4W 90 days folic acid 1 mg PO DAILY hydrocortisone 2.5% (Proctosol HC) 1 appl MO BID-QID PRN lacosamide (Vimpat) 200 mg PO BID 90 days Lactobacillus rhamnosus GG (Culturelle) 1 cap PO BID lidocaine 5% 1 patch topical DAILY omeprazole 20 mg PO DAILY 90 days phenobarbital 97.2 mg PO DAILY phenytoin sodium extended 100 mg PO TID 90 days psyllium husk (Fiber (psyllium husk)) 0.52 grams PO BEDTIME PRN [ROLLATOR with seat As directed] Tobacco use date assessed: 02/07/24 Dental Screening Dental Screen Date: 02/07/24 Did you have a dental visit in the last 12 months?: No Did you have a dental problem in the last 6 months where you did not have access to dental care?: No HPI seizure disorder HPI Details 58-year-old obese male with a history of CVA seizure disorder obstructive sleep apnea hypercholesterolemia GERD tubular adenoma coming in for follow-up. Last seen in 12/02/2023 for an annual wellness exam. Patient had a posterior neck sebaceous cyst seen the surgeon in 12/19/2023 this has become infected and was prescribed antibiotic. Patient was supposed to be scheduled for excision.. Alvaro Chow [id number]. interpret. the cyst is gone now. 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 Social History Housing: Apartment Alcohol intake: never Patient Tobacco Use Status: Never used Tobacco e-Cigarette/Vaping Use: Never Used Second Hand Smoke Exposure: No Advance Directives Date on File: 04/13/21 service: No Current occupational status: disabled Cognitive needs: Yes Hearing needs: No Vision needs: Yes Questionnaire PHQ-9 Over the last 2 weeks, how often have you been bothered by any of the following problems? 1. Little interest or pleasure in doing things: not at all 2. Feeling down, depressed, or hopeless: not at all 3. Trouble falling or staying asleep, or sleeping too much: not at all 4. Feeling tired or having little energy: not at all 5. Poor appetite or overeating: not at all 6. Feeling bad about yourself - or that you are a failure or have let yourself or your family down: not at all 7. Trouble concentrating on things, such as reading the newspaper or watching television: not at all 8. Moving or speaking so slowly that other people could have noticed. Or the opposite - being so fidgety or restless that you have been moving around a lot more than usual: not at all 9. Thoughts that you would be better off or of hurting yourself in some way: not at all Total score: 0 Depression Screening Interpretation: Negative Depression Screening Done: Yes 57836 - PHQ-9 Billing: Yes Source: Developed by Drs. Feliz Cyr, Kathryn Stratton, Stefan Denise and colleagues, with an educational oliver from [employer]. Thrive Questionnaire Date Thrive assessed: 02/07/24 I am a: Parent/Caregiver What is your living situation today?: I have a steady place to live Within the past 12 months, did the food you bought not last and you didn't have the money to get more?: Never true Within the past 12 months, did you worry whether your food would run out before you got money to buy more?: Never true Do you have trouble paying for medicines?: No Do you have trouble getting transportation to medical appointments?: No Do you have trouble paying your heating and electricity bill?: No Do you have trouble taking care of your child, family member or friend?: No Do you have trouble with day-to-day activities such as bathing, preparing meals, shopping, managing finances, etc.?: No Are you currently unemployed and looking for a job?: No Are you interested in more education?: No Please select the resources that you would like help with: None Currently or been in a relationship where the following occur: no concerns reported THRIVE Score: 0 AUDIT C Alcohol Use Questionnaire (AUDIT-C) 1. How often do you have a drink containing alcohol?: Never 2. How many drinks containing alcohol do you have on a typical day when you are drinking?: 1 or 2 (none) 3. How often do you have six or more drinks on one occasion?: Never Total Score: 0 Score Reviewed/Action Taken: No BRENDA-7 AMB Questionnaire BRENDA-7 Date BRENDA - 7 assessed: 02/07/24 Feeling nervous, anxious, or on edge: 0 = Not at all Not being able to stop or control worryin = Not at all Worrying too much about different things: 0 = Not at all Trouble relaxin = Not at all Being so restless that it is hard to sit still: 0 = Not at all Becoming easily annoyed or irritable: 0 = Not at all Feeling afraid as if something awful might happen: 0 = Not at all Total BRENDA-7 score (0-4 normal; 5-9 mild; 10-14 moderate; 15-21 severe): 0 Source: Developed by Drs. Feliz Cyr, Kathryn Stratton, Stefan Denise and colleagues, with an educational oliver from [employer]. BRENDA-7 Assessment Billing BRENDA-7 Assessment Tool: BRENDA-7 Assessment 84710 Physical exam (Primary Care) Vital Signs: Last Vital Signs Pulse 54 02/07/24 08:17 BP 132/70 02/07/24 08:17 Pulse Ox 99 02/07/24 08:17 Oxygen Delivery Method Room Air 02/07/24 08:17 BMI result Body Mass Index 38.7 Tobacco/Smoking Status: Tobacco use Status Tobacco use date assessed 02/07/24 02/07/24 08:18 Patient Tobacco Use Status Never used Tobacco 02/07/24 08:18 e-Cigarette/Vaping Use Never Used 02/07/24 08:18 PHQ-9: PHQ-9 Score PHQ-9: Total score 0 02/07/24 10:24 Depression Screening Interpretation: Negative Thrive Assessment: Date of Thrive Assessment Date Thrive assessed 02/07/24 02/07/24 09:31 Currently or been in a relationship where the following occur: no concerns reported Const General: alert; No acute distress HENMT Other: impacted cerumen bilateral Eyes Conjunctivae: conjunctivae normal Resp Auscultation: clear to auscultation bilaterally Cardio Rate: regular rate Rhythm: regular rhythm GI Inspection: Yes normal to inspection Extrem General: Yes normal to inspection and No edema Office Procedures Cerumen Removal From which ear canal was the cerumen removed: bilateral Removal: otoscope w/curette and cerumen loop/spoon Notes: patient tolerated procedure well, no complications and ear canal clear [id number] Wax Removal by Spoon/Curette Office Meds cyanocobalamin (vitamin B-12) 1,000 mcg/mL injection solution Performing Provider: Veronique Hare MD Performing Location[place] [facility] [place] [facility] Administered by: Adilene Alfaro RN on 02/07/24 10:24 Dose Route Admin Location Dispensed Lot Number Expiration Date [facility] [place]NOTE 2] Bank Operations Officer 1,000 mcg IM 1 mL [id number] 12/12/23 42203-503-65 GIANCARLO VALERIO Assessment and Plan Assessment & Plan (1) Sebaceous cyst: Comment: Posterior neck 12/2023 Code(s): L72.3 - Sebaceous cyst Plan: Patient was seen by the surgeon. Cyst not infected at that time but was supposed to be scheduled for excision but this has resolved (2) Impaired fasting blood sugar: Code(s): R73.01 - Impaired fasting glucose Plan: Decrease the amount of carbohydrate intake, pasta, bread, rice and potatoes are all sugar and that is aside from all the sweet stuff, remember that fruits are good but they are Sweet also. 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 Holley Code(s): G40.909 - Epilepsy, unspecified, not intractable, without status epilepticus Plan: Patient presently on Vimpat, phenobarbital and Dilantin- will repeat test (5) Impacted cerumen of both ears: Code(s): H61.23 - Impacted cerumen, bilateral Plan: scoop used no irrigaiton TM intact bilateral (6) Knee pain, left: Code(s): M25.562 - Pain in left knee Qualifiers: Chronicity: acute Qualified Code(s): M25.562 - Pain in left knee Plan: xray done 08/2023 and voltaren gel sent (7) Tubular adenoma of colon: Comment: June 2018 5 years Code(s): D12.6 - Benign neoplasm of colon, unspecified Plan: colon cancer screening referral done - phone number is given Orders: Orders Phenytoin Dilantin Today G40.909 - Epilepsy, unspecified, not intractable, without status epilepticus Phenobarbital Today G40.909 - Epilepsy, unspecified, not intractable, without status epilepticus AMB Vitamin B12 Injection Patient Supplied Today E53.8 - Deficiency of other specified B group vitamins Medications: New diclofenac sodium 1% (Voltaren Arthritis Pain) apply to single knee, ankle, foot; for foot includes sole/toes/top of foot 4 grams topical QID 100 grams 0RF M25.562 - Pain in left knee Coding Level of Care Code Est Pt Level 4 (07591) Diagnoses Sebaceous cyst L72.3 Impaired fasting blood sugar R73.01 Obesity (BMI 30-39.9) E66.9 Seizure disorder G40.909 Impacted cerumen of both ears H61.23 Acute pain of left knee M25.562 Chronicity: acute Tubular adenoma of colon D12.6 CPT Codes Office Procedure - CPT: 12944-Wtj Wax Removal by Spoon/Curette ([id number]) Additional Codes BRENDA-7 Assessment Billing - BRENDA-7 Assessment Tool: BRENDA-7 Assessment 23063 ([id number])
== END 2024-02-07 10:28 | disposition home or self-care (01) ==
PROVIDERS: PCP Internal Medicine; Visit Provider Internal Medicine
DX: G40.909 Epilepsy, unspecified, not intractable, without status epilepticus (principal); E66.9 Obesity, unspecified; H61.23 Impacted cerumen, bilateral; Z68.38 Body mass index [BMI] 38.0-38.9, adult; L72.3 Sebaceous cyst; R73.01 Impaired fasting glucose; E53.8 Deficiency of other specified B group vitamins; M25.562 Pain in left knee; D12.6 Benign neoplasm of colon, unspecified
CPT/HCPCS: 69210; 96372; 99214; J3420

== ENCOUNTER 2024-02-21 05:56 | Outpatient (REF) | payer MEDICARE, MEDICAID, SELFPAY ==
[2024-02-21 08:06] LABS: Phenytoin Dilantin 11.4 ug/mL (10.0-20.0)
== END 2024-02-21 05:57 | disposition home or self-care (01) ==
LOC: HO.LAB 05:56
PROVIDERS: PCP Internal Medicine; Visit Provider Internal Medicine
DX: G40.909 Epilepsy, unspecified, not intractable, without status epilepticus (principal)
CPT/HCPCS: 36415; 80184; 80185

== ENCOUNTER 2024-03-13 12:56 | Outpatient (AMB) | payer MEDICARE, MEDICAID, SELFPAY ==
--- NOTE | 2024-03-13 13:01 | AM.OFFVISNUR ---
Intake Visit Reasons: B-12 shot Allergies No Known Allergies [No Known Allergies*] Allergy (Verified 02/07/24 08:17) Office Meds cyanocobalamin (vitamin B-12) 1,000 mcg/mL injection solution Performing Provider: Veronique Hare MD [facility] Administered by: Adilene Alfaro RN on 03/13/24 13:01 Dose Route Admin Location Dispensed Lot Number Expiration Date [place] Videogame Tester 1,000 mcg IM 1 mL [id number] 11/11/24 20798-460-57 GIANCARLO VALERIO Assessment & Plan Assessment & Plan Orders: Orders AMB Vitamin B12 Injection Patient Supplied Today E53.8 - Deficiency of other specified B group vitamins Medications: New cyanocobalamin (vitamin B-12) 1,000 mcg IM ONCE 1 mL 0RF E53.8 - Deficiency of other specified B group vitamins
== END 2024-03-13 13:10 | disposition home or self-care (01) ==
PROVIDERS: PCP Internal Medicine; Visit Provider Internal Medicine
DX: E53.8 Deficiency of other specified B group vitamins (principal)
CPT/HCPCS: 96372; J3420

== ENCOUNTER 2024-03-27 12:47 | Outpatient (AMB) | payer MEDICARE, MEDICAID, SELFPAY ==
--- NOTE | 2024-03-27 12:58 | AM.OFFVISNUR ---
Intake Visit Reasons: B-12 Shot Allergies No Known Allergies [No Known Allergies*] Allergy (Verified 02/07/24 08:17) Office Meds cyanocobalamin (vitamin B-12) 1,000 mcg/mL injection solution Performing Provider: Veronique Hare MD [facility] Administered by: Adilene Alfaro RN on 03/27/24 12:58 Dose Route Admin Location Dispensed Lot Number Expiration Date [facility] Drama Therapist 1,000 mcg IM 1 mL [id number] 11/11/24 63942-022-05 GIANCARLO VALERIO Assessment & Plan Assessment & Plan Orders: Orders AMB Vitamin B12 Injection Patient Supplied Today E53.8 - Deficiency of other specified B group vitamins Medications: New cyanocobalamin (vitamin B-12) 1,000 mcg IM ONCE 1 mL 0RF E53.8 - Deficiency of other specified B group vitamins
== END 2024-03-27 13:09 | disposition home or self-care (01) ==
PROVIDERS: PCP Internal Medicine; Visit Provider Internal Medicine
DX: E53.8 Deficiency of other specified B group vitamins (principal)
CPT/HCPCS: 96372; J3420

== ENCOUNTER 2024-04-09 11:17 | Outpatient (REF) | payer MEDICARE, MEDICAID, SELFPAY ==
--- NOTE | ~2024-04-09 | US_ITS ---
EXAMINATION: US THYROID CLINICAL INFORMATION: Nontoxic multinodular goiter. COMPARISON: Ultrasound soft tissue head/neck thyroid dated 09/13/2022 and 10/28/2021. TECHNIQUE: Linear transducer grayscale and color Doppler examination with attention to the region of the thyroid. FINDINGS: SIZE: Measurements of the thyroid lobes and nodules are given in sagittal, anteroposterior and transverse dimensions respectively. Right Thyroid Lobe: 5.5 x 2.6 x 2.1 cm, volume 15.4 mL. Previously 5.3 x 2.3 x 2.3 cm, volume 14.7 mL. Parenchyma: The gland echotexture is heterogeneous. Thyroid vascularity is normal. Left Thyroid Lobe: 5.3 x 3.1 x 4.0 cm, volume 37.8 mL. Previously 5.6 x 3.1 x 4.1 cm, volume 37.2 mL. Parenchyma: The gland echotexture is heterogeneous. Thyroid vascularity is normal. Isthmus: 0.2 cm in maximum AP dimension. Previously 0.5 cm. Estimated total number of nodules greater than or equal to 1 cm: 2. Airplane Pilot Photogrammetry nodules are described as follows: 1. Location: Left mid. Size: 4.6 x 4.1 x 2.9 cm, volume 28.6 mL. Previously: 4.1 x 2.3 x 3.2 cm, volume 15.6 mL. Nodule characteristics: Composition: Solid (2). Echogenicity: Isoechoic (1). Shape: Not taller than wide (0). Margins: Ill-defined (0). Echogenic Foci: None (0). ACR TI-RADS total points: 3 Previous: 3 ACR TI-RADS category: 3 Previous: 3 Significant change in size (>/= 20% in 2 dimensions and minimal increase of 2 mm or 50% or greater increase in volume): Yes Change in features: No Change in ACR TI-RADS risk category: No 2. Location: Right inferior. Size: 3.0 x 2.2 x 1.8 cm, volume 6.2 mL. Previously: 3.5 x 2.1 x 1.8 cm, volume 7.1 mL. Nodule characteristics: Composition: Mixed cystic and solid (1). Echogenicity: Cannot be determined (1). Shape: Taller than wide (3). Margins: Ill-defined (0). Echogenic Foci: None (0). ACR TI-RADS total points: 5 Previous: 5 ACR TI-RADS category: 4 Previous: 4 Significant change in size (>/= 20% in 2 dimensions and minimal increase of 2 mm or 50% or greater increase in volume): No Change in features: No Change in ACR TI-RADS risk category: No NODES: No lymphadenopathy is seen in the tissue surrounding the thyroid gland. US/US thyroid IMPRESSION: Enlarged multinodular goiter. Both of the nodules described above meet criteria for percutaneous biopsy if this has not already been performed. ACR TI-RADS RECOMMENDATION REFERENCE: Ultrasound-guided fine-needle aspiration, follow up ultrasound, no further followup. * TR1 (0 point) and TR2 (2 points): No FNA or followup * TR3 (3 points): FNA if more than or equal to 2.5 cm in maximum dimension, follow up ultrasound in 1, 3 and 5 years if 1.5 to 2.4 cm in maximum dimension. * TR4 (4-6 points): FNA if more than or equal to 1.5 cm in maximum dimension, follow up ultrasound in 1, 2, 3 and 5 years if 1 to 1.4 cm in maximum dimension. * TR5 (more than or equal to 7 points): FNA if more than or equal to 1 cm in maximum dimension, follow up ultrasound every year for 5 years if 0.5 to 0.9 cm in maximum dimension. * TR3, TR4 or TR5 nodules that are below the size threshold for follow up receive no follow up. Electronically signed by: Shimon Rose MD 04/23/2024 12:13 PM EDT
== END 2024-04-09 11:18 | disposition home or self-care (01) ==
LOC: HO.US 11:17
PROVIDERS: PCP Internal Medicine; Visit Provider Internal Medicine Endocrinology, Diabetes & Metabolism
DX: E04.2 Nontoxic multinodular goiter (principal)
CPT/HCPCS: 76536

== ENCOUNTER 2024-04-17 12:51 | Outpatient (AMB) | payer MEDICARE, MEDICAID, SELFPAY ==
--- NOTE | 2024-04-17 12:54 | MHC.OFFVIS ---
Vital Signs 04/17/24 12:55 Height 5 ft 5 in Weight 235 lb 3.732 oz BMI 39.1 BP 118/60 Blood Pressure Location Lt brachial Position Sitting Pulse 78 Pulse Source Pulse Oximeter Intake Visit Reasons: MNG-confirmed Intake Note: Patient present today for MNG follow up. Manufacturing Clerk Required: Yes Manufacturing Clerk Language: Keyseater Operator Services: Manufacturing Clerk Present Manufacturing Clerk Name: Tari Conway Information Interpreted: non-clinical & clinical Accompanied by: Sister Allergies No Known Allergies [No Known Allergies*] Allergy (Verified 04/17/24 12:59) HPI Comments Details: 58 YO Male with a PMHx of a multinodular thyroid who is seen in F/U for the same. He has a multinodular thyroid and underwent 2 FNA biopsies in the past: 10/26/2017: L upper lobe 3.8 x 2.5 x 3.0 cm - benign cytology 02/27/2020: R mid pole 2.8 x 1.7 x 1.6 cm - benign cytology He had an US of the thyroid 02/17/2021 which did reveal interval growth of the RMP thyroid nodule. There was slight growth of the LUP thyroid nodule, but not sufficient to warrant repeat FNA. He presented for repeat FNA bipsy 10/28/2021, but at that time his LUP nodule was measured to be 3.8 cm, unchanged from prior, thus no repeat FNA biopsy was indicated or completed. He currently reports feeling well. He dysphagia or hoarseness of his voice. US Thyroid: 09/13/2022 Right Thyroid Lobe: 5.3 x 2.3 x 2.3 cm, volume 14.7 mL. Previously 5.0 x 2.7 x 1.9 cm, volume 13.4 mL. Parenchyma: The gland echotexture is heterogeneous. Thyroid vascularity is increased. Left Thyroid Lobe: 5.6 x 3.1 x 4.1 cm, volume 37.2 mL. Previously 5.1 x 3.0 x 3.6 cm, volume 28.8 mL. Parenchyma: The gland echotexture is heterogeneous. Thyroid vascularity is increased. Isthmus: 0.5 cm in maximum AP dimension. Previously 0.5 cm. Estimated total number of nodules greater than or equal to 1 cm: 2. Extractor Operator nodules are described as follows: 1.? Location: Right inferior. ?? ? Size: 3.5 x 2.1 x 1.8 cm, volume 7.1 mL. ?? ? Previously: 3.6 x 2.2 x 1.8 cm, volume 7.5 mL. Fine-needle aspiration of this nodule was performed on February 27, 2020. ?? ? Nodule characteristics: ?? ? Composition: Mixed cystic and solid (1). ?? ? Echogenicity: Cannot be determined (1). ?? ? Shape: Taller than wide (3). ?? ? Margins: Ill-defined (0). ?? ? Echogenic Foci: None (0). ? ACR TI-RADS total points: 5 Previous: 5 ?? ? ACR TI-RADS category: 4 Previous: 4 ? Significant change in size (>/= 20% in 2 dimensions and minimal increase of 2 mm or 50% or greater increase in volume): No ?? ? Change in features: No ?? ? Change in ACR TI-RADS risk category: No 2.? Location: Left mid. ?? ? Size: 4.1 x 2.3 x 3.2 cm, volume 15.6 mL. ?? ? Previously: 4.2 x 2.6 x 3.4 cm, volume 19.4 mL. In March 2017 this measured 3.8 x 3.0 x 2.5 cm. Fine-needle aspiration of this nodule was performed on October 26, 2017. ?? ? Nodule characteristics: ?? ? Composition: Solid (2). ?? ? Echogenicity: Hyperechoic (1). ?? ? Shape: Not taller than wide (0). ?? ? Margins: Smooth (0). ?? ? Echogenic Foci: None (0). ?? ? ACR TI-RADS total points: 3 Previous: 3 ?? ? ACR TI-RADS category: 3 Previous: 3 ? Significant change in size (>/= 20% in 2 dimensions and minimal increase of 2 mm or 50% or greater increase in volume): No ?? ? Change in features: No ?? ? Change in ACR TI-RADS risk category: No NODES: No lymphadenopathy is seen in the tissue surrounding the thyroid gland. Labs: Laboratory Tests 11/02/22 13:23 25-OH Vitamin D Total 35.3 TSH 1.31 Free T4 0.78 He denies obstructive symptoms [facility] Medical History Oropharyngeal dysphagia Annual physical exam Epilepsy Chronic static encephalopathy Uses walker Seizure Edentulous Cataract Preoperative clearance Aspiration into airway Tubular adenoma of colon Umbilical hernia Mental and behavioral problem History of meningitis Hypercholesterolemia Thyroid nodule Vitamin D deficiency Obstructive sleep apnea History of CVA (cerebrovascular accident) Seizure disorder Surgical History S/P CYBER INSTRUCTOR shunt Hx of colonoscopy History of brain surgery History of lung surgery Family History Father Myocardial infarction Mother Myocardial infarction Maternal Uncle Prostate cancer Brother Prostate cancer Sister No problems noted. Social History Housing: Apartment Alcohol intake: never Patient Tobacco Use Status: Never used Tobacco e-Cigarette/Vaping Use: Never Used Second Hand Smoke Exposure: No Advance Directives Date on File: 04/13/21 service: No Current occupational status: disabled Cognitive needs: Yes Hearing needs: No Vision needs: Yes Physical Exam Vital Signs: BMI result Body Mass Index 39.1 Const Other: Thyroid gland is large in size weighs about 20 g. There are no palpable thyroid nodule Assessment & Plan Assessment & Plan (1) Non-toxic multinodular goiter: Code(s): E04.2 - Nontoxic multinodular goiter Category: Medical Plan: This is a 58-year-old male with a history of multinodular goiter status post FNA 10/26/2017: L upper lobe 3.8 x 2.5 x 3.0 cm - benign cytology 02/27/2020: R mid pole 2.8 x 1.7 x 1.6 cm - benign cytology. He appears to be clinically and biochemically euthyroid. Repeat thyroid ultrasound report is pending . Plan is reviewed the thyroid ultrasound report is available. We will also check TSH and free T4. Will have patient follow up with Dr. Desai an chief controller tower with special interest in thyroid ultrasound and biopsy Orders: Orders Free T4 (Free Thyroxine) Today E04.2 - Nontoxic multinodular goiter Thyroid Stimulating Hormone Today E04.2 - Nontoxic multinodular goiter Coding Level of Care Code Est Pt Level 3 (45383) Diagnoses Non-toxic multinodular goiter E04.2
[2024-04-17 12:55] VITALS: BP 118/60; PULSE 78; BMI 39.1
== END 2024-04-17 13:12 | disposition home or self-care (01) ==
PROVIDERS: PCP Internal Medicine; Visit Provider Internal Medicine Endocrinology, Diabetes & Metabolism
DX: E04.2 Nontoxic multinodular goiter (principal)
CPT/HCPCS: 99213

== ENCOUNTER → 2024-04-17 12:51 | Outpatient (BNVA) | payer MEDICARE, MEDICAID, SELFPAY | PROVIDERS: PCP Internal Medicine; Visit Provider Internal Medicine Endocrinology, Diabetes & Metabolism | DX: E04.2 Nontoxic multinodular goiter (principal) | CPT/HCPCS: 99212 ==

== ENCOUNTER 2024-04-22 12:37 | Outpatient (REF) | payer MEDICARE, MEDICAID, SELFPAY ==
[2024-04-22 14:05] LABS: Free T4 (Free Thyroxine) 0.74 ng/dL (0.71-1.85)
== END 2024-04-22 12:38 | disposition home or self-care (01) ==
LOC: HO.LAB 12:37
PROVIDERS: PCP Internal Medicine; Visit Provider Internal Medicine Endocrinology, Diabetes & Metabolism
DX: E04.2 Nontoxic multinodular goiter (principal)
CPT/HCPCS: 36415; 84439; 84443

== ENCOUNTER 2024-05-07 12:45 | Outpatient (AMB) | payer MEDICARE, MEDICAID, SELFPAY ==
--- NOTE | 2024-05-07 12:59 | AM.OFFVISNUR ---
Intake Visit Reasons: B-12 shot Intake Note: B12 injection supplied by patient and administered. Allergies No Known Allergies [No Known Allergies*] Allergy (Verified 05/30/24 14:19) Office Meds cyanocobalamin (vitamin B-12) 1,000 mcg/mL injection solution Performing Provider: Veronique Hare MD [facility] [facility] [place] [facility] Administered by: Linda Mishra RN on 05/07/24 13:06 Dose Route Admin Location Dispensed Lot Number Expiration Date [facility] Wire Insulator 1,000 mcg IM left deltoid 1 mL [id number] 04/12/25 23063-280-23 JACKY PHARMACEUT Assessment & Plan Assessment & Plan Orders: Orders AMB Vitamin B12 Injection Patient Supplied 05/07/24 E53.8 - Deficiency of other specified B group vitamins
--- NOTE | 2024-06-05 14:21 | AM.OFFVISNUR ---
Intake Visit Reasons: B-12 shot Intake Note: Patient supplied B12 vial. Administered by Linda Mishra. Allergies No Known Allergies [No Known Allergies*] Allergy (Verified 05/30/24 14:19) Office Meds cyanocobalamin (vitamin B-12) 1,000 mcg/mL injection solution Performing Provider: Veronique Hare MD [facility] [place] [facility] [place] Administered by: Linda Mishra RN on 05/07/24 13:06 Dose Route Admin Location Dispensed Lot Number Expiration Date [facility] Janitorial Account Manager 1,000 mcg IM left deltoid 1 mL [id number] 04/12/25 98411-435-68 JACKY PHARMACEUT Assessment & Plan Assessment & Plan Orders: Orders AMB Vitamin B12 Injection Patient Supplied 05/07/24 E53.8 - Deficiency of other specified B group vitamins
== END 2024-05-07 13:11 | disposition home or self-care (01) ==
PROVIDERS: PCP Internal Medicine; Visit Provider Internal Medicine
DX: E53.8 Deficiency of other specified B group vitamins (principal)
CPT/HCPCS: J3420

== ENCOUNTER → 2024-05-07 12:45 | Outpatient (BNVA) | payer MEDICARE, MEDICAID, SELFPAY | PROVIDERS: PCP Internal Medicine; Visit Provider Internal Medicine | DX: E53.8 Deficiency of other specified B group vitamins (principal) | CPT/HCPCS: 96372 ==

== ENCOUNTER 2024-05-30 14:13 | Outpatient (AMB) | payer MEDICARE, MEDICAID, SELFPAY ==
--- NOTE | 2024-05-30 14:18 | MHC.PC.OV ---
Vital Signs 05/30/24 14:19 Height 5 ft 5 in Weight 234 lb BMI 38.9 BP 112/64 Blood Pressure Location Lt brachial Position Sitting Pulse 78 Pulse Source Pulse Oximeter Pulse Oximetry (%) 99 Oxygen Delivery Method Room Air Intake Visit Reasons: Seizures Mental Health Coordinator Required: No Allergies No Known Allergies [No Known Allergies*] Allergy (Verified 05/30/24 14:19) Medication List - Last Reconciled 05/30/24 by Danielle Rodriguez PA-C acetaminophen (Tylenol) 650 mg (2 x 325 mg) PO Q6H PRN [AFO brace As directed] cholecalciferol (vitamin D3) 1,250 mcg PO QWEEK 12 weeks cyanocobalamin (vitamin B-12) 1,000 mcg IM Q4W 90 days diclofenac sodium 1% (Voltaren Arthritis Pain) 4 grams topical QID folic acid 1 mg PO DAILY hydrocortisone 2.5% (Proctosol HC) 1 appl [place] BID-QID PRN lacosamide (Vimpat) 200 mg PO BID 90 days Lactobacillus rhamnosus GG (Culturelle) 1 cap PO BID lidocaine 5% 1 patch topical DAILY omeprazole 20 mg PO DAILY 90 days phenobarbital 97.2 mg PO DAILY phenytoin sodium extended 100 mg PO TID 90 days psyllium husk (Fiber (psyllium husk)) 0.52 grams PO BEDTIME PRN [ROLLATOR with seat As directed] Tobacco use date assessed: 02/07/24 Dental Screening Dental Screen Date: 02/07/24 HPI Seizures HPI Details 58-year-old obese male with a history of CVA seizure disorder obstructive sleep apnea hypercholesterolemia GERD tubular adenoma coming in for follow-up. Mental Health Coordinator was used for the duration of this visit. No recent ER visits or seizure activity. Has not had Dilantin levels drawn. No acute concerns today. 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 Social History Housing: Apartment Alcohol intake: never Patient Tobacco Use Status: Never used Tobacco e-Cigarette/Vaping Use: Never Used Second Hand Smoke Exposure: No Advance Directives Date on File: 04/13/21 service: No Current occupational status: disabled Cognitive needs: Yes Hearing needs: No Vision needs: Yes Questionnaire Thrive Questionnaire Date Thrive assessed: 02/07/24 AUDIT C Alcohol Use Questionnaire (AUDIT-C) 1. How often do you have a drink containing alcohol?: Never 2. How many drinks containing alcohol do you have on a typical day when you are drinking?: 1 or 2 (none) 3. How often do you have six or more drinks on one occasion?: Never Total Score: 0 Score Reviewed/Action Taken: No BRENDA-7 AMB Questionnaire BRENDA-7 Date BRENDA - 7 assessed: 02/07/24 Source: Developed by Drs. Feliz Cyr, Kathryn Stratton, Stefan Denise and colleagues, with an educational oliver from [employer] Review of Systems Const Denies body aches, Denies chills, Denies fever(s) and Denies headache(s) Eyes Reports no additional complaints ENT Reports no additional complaints and Denies headache(s) Card Denies chest pain and Denies dyspnea Resp Denies dyspnea GI Reports no additional complaints Musc Reports no additional complaints Skin/Breast Reports system reviewed and no additional complaints, except as documented Neuro Denies confusion, Denies headache(s), Denies convulsions and Denies seizure-like activity Psych Denies confusion Physical exam (Primary Care) Vital Signs: Last Vital Signs Pulse 78 05/30/24 14:19 BP 112/64 05/30/24 14:19 Pulse Ox 99 05/30/24 14:19 Oxygen Delivery Method Room Air 05/30/24 14:19 BMI result Body Mass Index 38.9 Tobacco/Smoking Status: Tobacco use Status Tobacco use date assessed 02/07/24 05/30/24 14:19 Patient Tobacco Use Status Never used Tobacco 05/30/24 14:19 e-Cigarette/Vaping Use Never Used 05/30/24 14:19 Thrive Assessment: Date of Thrive Assessment Date Thrive assessed 02/07/24 05/30/24 14:19 Const General: No confusion Orientation/consciousness: No confusion HENMT Head: Yes normocephalic Ears: hearing grossly normal bilaterally General nose exam: Normal external nose present Eyes General: appearance normal, both eyes and all related structures Conjunctivae: conjunctivae normal Neck Neck: Yes full ROM and Yes no lymphadenopathy Resp Effort & Inspection: normal respiratory effort Auscultation: clear to auscultation bilaterally, no crackles, no rales, no rhonchi and no wheezes Cardio Rate: regular rate Rhythm: regular rhythm Skin General skin exam: no rashes or lesions noted Neuro General: No confusion Gait exam (Neuro): Normal gait present Extrem General: Yes normal to inspection, Yes full ROM and No edema Psych Affect: normal affect Attitude: cooperative Insight: Good insight present (Psych) Judgement: Good judgement present (Psych) Coding Level of Care Code Est Pt Level 3 (67185) Diagnoses Seizure disorder G40.909 Impaired fasting blood sugar R73.01 Gastroesophageal reflux disease without esophagitis K21.9 Esophagitis presence: without esophagitis Hypercholesterolemia E78.00 Assessment & Plan Assessment & Plan (1) Seizure disorder: Comment: October 2015 generalized tonic-clonic, 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 Holley Code(s): G40.909 - Epilepsy, unspecified, not intractable, without status epilepticus Category: Medical Plan: No recent seizure activity. Ordered for Dilantin levels and advised patient to have them done before he leaves for vacation in case dose adjustments need to be made. Otherwise follow up at next visit in 6 months. (2) Impaired fasting blood sugar: Code(s): R73.01 - Impaired fasting glucose Category: Medical Plan: Decrease the amount of carbohydrates such as pasta, bread, rice, and potatoes and limit the amount of sweets. Although fruits are generally healthy they should be eaten in moderation as they are still high in sugar. (3) GERD (gastroesophageal reflux disease): Code(s): K21.9 - Gastro-esophageal reflux disease without esophagitis Category: Medical Qualifiers: Esophagitis presence: without esophagitis Qualified Code(s): K21.9 - Gastro-esophageal reflux disease without esophagitis Plan: Avoid trigger foods such as citrus, tomato products, soda, caffeine, spicy foods and other foods that may be irritating to your stomach. Avoid laying flat 3-4 hours after eating and elevate the head of the bed 30 degrees to prevent acid from moving into the esophagus. (4) Hypercholesterolemia: Code(s): E78.00 - Pure hypercholesterolemia, unspecified Category: Medical Plan: Avoid foods that are high in cholesterol such as red meat, fried foods, eggs and baked goods. Triglyceride goal of less than 150 and LDL goal of less than 100. Plan This note was constructed using voice recognition software. While every effort has been made to ensure accuracy and dock coordinator, still areas may have been included sometimes these areas may affect the content or meeting of the given symptoms. Total time spent caring for the patient today was 30 minutes. This includes time spent before the visit reviewing the chart, time spent during the visit, and time spent after the visit and documentation. Orders: Orders Phenytoin Dilantin Today G40.909 - Epilepsy, unspecified, not intractable, without status epilepticus
[2024-05-30 14:19] VITALS: BP 112/64; PULSE 78; O2SAT 99; BMI 38.9
== END 2024-05-30 15:31 | disposition home or self-care (01) ==
PROVIDERS: PCP Internal Medicine
DX: G40.909 Epilepsy, unspecified, not intractable, without status epilepticus (principal); R73.01 Impaired fasting glucose; K21.9 Gastro-esophageal reflux disease without esophagitis; E78.00 Pure hypercholesterolemia, unspecified

== ENCOUNTER → 2024-05-30 14:13 | Outpatient (BNVA) | payer MEDICARE, MEDICAID, SELFPAY | PROVIDERS: PCP Internal Medicine | DX: G40.909 Epilepsy, unspecified, not intractable, without status epilepticus (principal); R73.01 Impaired fasting glucose; K21.9 Gastro-esophageal reflux disease without esophagitis; E78.00 Pure hypercholesterolemia, unspecified | CPT/HCPCS: 99212 ==

== ENCOUNTER 2024-06-03 13:12 | Outpatient (REF) | payer MEDICARE, MEDICAID, SELFPAY ==
[2024-06-03 14:50] LABS: Phenytoin Dilantin 17.6 ug/mL (10.0-20.0)
== END 2024-06-03 13:13 | disposition home or self-care (01) ==
LOC: HO.LAB 13:12
PROVIDERS: PCP Internal Medicine
DX: G40.909 Epilepsy, unspecified, not intractable, without status epilepticus (principal)
CPT/HCPCS: 36415; 80185

== ENCOUNTER 2024-06-06 13:38 | Outpatient (AMB) | payer MEDICARE, MEDICAID, SELFPAY ==
--- NOTE | 2024-06-06 14:01 | AM.OFFVISNUR ---
Intake Visit Reasons: B12 Shot Allergies No Known Allergies [No Known Allergies*] Allergy (Verified 05/30/24 14:19) Office Meds cyanocobalamin (vitamin B-12) 1,000 mcg/mL injection solution Performing Provider: Veronique Hare MD Performing Location[facility] [place] [facility] Administered by: Erica Carlton LPN on 06/06/24 14:01 Dose Route Admin Location Dispensed Lot Number Expiration Date [facility] Toddler Lead Teacher 1,000 mcg IM left deltoid 1 mL [id number] 04/12/25 06543-615-46 JACKY PHARMACEUT Assessment & Plan Assessment & Plan Orders: Orders AMB Vitamin B12 Injection Patient Supplied Today D51.0 - Vitamin B12 deficiency anemia due to intrinsic factor deficiency Medications: New cyanocobalamin (vitamin B-12) 1,000 mcg IM ONCE 1 mL 0RF pernicious anemia D51.0 - Vitamin B12 deficiency anemia due to intrinsic factor deficiency
== END 2024-06-06 13:50 | disposition home or self-care (01) ==
PROVIDERS: PCP Internal Medicine; Visit Provider Internal Medicine
DX: D51.0 Vitamin B12 deficiency anemia due to intrinsic factor deficiency (principal)
CPT/HCPCS: J3420

== ENCOUNTER → 2024-06-06 13:38 | Outpatient (BNVA) | payer MEDICARE, MEDICAID, SELFPAY | PROVIDERS: PCP Internal Medicine; Visit Provider Internal Medicine | DX: D51.0 Vitamin B12 deficiency anemia due to intrinsic factor deficiency (principal) | CPT/HCPCS: 96372 ==

== ENCOUNTER 2024-06-28 10:35 | Outpatient (AMB) | payer MEDICARE, MEDICAID, SELFPAY ==
--- NOTE | 2024-06-28 10:45 | AM.OFFVISNUR ---
Intake Visit Reasons: b12 Allergies No Known Allergies [No Known Allergies*] Allergy (Verified 05/30/24 14:19) Office Meds cyanocobalamin (vitamin B-12) 1,000 mcg/mL injection solution Performing Provider: Veronique Hare MD [facility] [place] [facility] Administered by: Erica Carlton LPN on 06/28/24 10:45 Dose Route Admin Location Dispensed Lot Number Expiration Date [facility] Printer Repair Technician 1,000 mcg IM left deltoid 1 mL [id number] 04/12/25 95685-826-59 JACKY PHARMACEUT Assessment & Plan Assessment & Plan Orders: Orders AMB Vitamin B12 Injection Patient Supplied Today D51.0 - Vitamin B12 deficiency anemia due to intrinsic factor deficiency Medications: New cyanocobalamin (vitamin B-12) 1,000 mcg IM ONCE 1 mL 0RF D51.0 - Vitamin B12 deficiency anemia due to intrinsic factor deficiency
== END 2024-06-28 14:45 | disposition home or self-care (01) ==
LOC: HO.HMCH 10:35
PROVIDERS: PCP Internal Medicine; Visit Provider Internal Medicine
DX: D51.0 Vitamin B12 deficiency anemia due to intrinsic factor deficiency (principal)
CPT/HCPCS: J3420

== ENCOUNTER → 2024-06-28 10:35 | Outpatient (BNVA) | payer MEDICARE, MEDICAID, SELFPAY | PROVIDERS: PCP Internal Medicine; Visit Provider Internal Medicine | DX: D51.0 Vitamin B12 deficiency anemia due to intrinsic factor deficiency (principal) | CPT/HCPCS: 96372 ==

== ENCOUNTER 2024-08-19 12:44 | Outpatient (AMB) | payer MEDICARE, MEDICAID, SELFPAY ==
[2024-08-19 13:03] VITALS: BP 130/66; PULSE 65; BMI 39.4
--- NOTE | 2024-08-19 13:03 | MHC.OFFVIS ---
Vital Signs 08/19/24 13:03 Height 5 ft 5 in Weight 236 lb 15.951 oz BMI 39.4 BP 130/66 Blood Pressure Location Lt brachial Position Sitting Pulse 65 Pulse Source Pulse Oximeter Intake Visit Reasons: f/u MNG Intake Note: Patient present today for MNG office visit. Mobile Patrol Officer Required: Yes Mobile Patrol Officer Language: Sheet Cutting Operator Services: Mobile Patrol Officer Present Information Interpreted: non-clinical & clinical Accompanied by: Sister Allergies No Known Allergies [No Known Allergies*] Allergy (Verified 08/19/24 13:08) Medication List - Last Reconciled 08/19/24 by Carolyn Desai MD acetaminophen (Tylenol) 650 mg (2 x 325 mg) PO Q6H PRN [AFO brace As directed] cholecalciferol (vitamin D3) 1,250 mcg PO QWEEK 12 weeks cyanocobalamin (vitamin B-12) 1,000 mcg IM Q4W 90 days diclofenac sodium 1% (Voltaren Arthritis Pain) 4 grams topical QID folic acid 1 mg PO DAILY hydrocortisone 2.5% (Proctosol HC) 1 appl ID BID-QID PRN lacosamide (Vimpat) 200 mg PO BID 90 days Lactobacillus rhamnosus GG (Culturelle) 1 cap PO BID lidocaine 5% 1 patch topical DAILY omeprazole 20 mg PO DAILY 90 days phenobarbital 97.2 mg PO DAILY phenytoin sodium extended 100 mg PO TID 90 days psyllium husk (Fiber (psyllium husk)) 0.52 grams PO BEDTIME PRN [ROLLATOR with seat As directed] HPI Comments Details: 58 YO Male with a PMHx of a multinodular thyroid who is seen in F/U for the same. HPI from prior visit He has a multinodular thyroid and underwent 2 FNA biopsies in the past: 10/26/2017: L upper lobe 3.8 x 2.5 x 3.0 cm - benign cytology 02/27/2020: R mid pole 2.8 x 1.7 x 1.6 cm - benign cytology He had an US of the thyroid 02/17/2021 which did reveal interval growth of the RMP thyroid nodule. There was slight growth of the LUP thyroid nodule, but not sufficient to warrant repeat FNA. He presented for repeat FNA bipsy 10/28/2021, but at that time his nodule, unchanged from prior, thus no repeat FNA biopsy was indicated or completed. Ultrasound 09/13/2022: Showed stable size of the right inferior and the left midpole nodule. Ultrasound 04/09/2024: I reviewed the images myself and while the report comments on increase in size of the left midpole nodule now measuring 4.6 X 4.1 X 2.9 cm, increased from 4.1 next 2.3 X 3.2 cm, when I reviewed the images it just seems there is a difference in measurement because of different sites for the points used. The nodule remained stable in size. He currently reports feeling well. He denies dysphagia or hoarseness of his voice. No family history of thyroid cancer or thyroid disease. Physical exam General: sitting comfortably in no acute distress HEENT: normocephalic/atraumatic,, moist oral mucosa Neck: supple, 2 cm palpable nodules bilaterally Cardiac: normal heart sounds Pulm: normal breath sounds B/L, no added breath sounds Abd: not distended, no tenderness Extremities: no edema, no signs of myxedema Labs: Laboratory Tests 11/02/22 13:23 25-OH Vitamin D Total 35.3 TSH 1.31 Free T4 0.78 Laboratory Tests 04/22/24 12:57 TSH 0.80 Free T4 0.74 US THYROID 04/09/24 CLINICAL INFORMATION: Nontoxic multinodular goiter. COMPARISON: Ultrasound soft tissue head/neck thyroid dated 09/13/2022 and 10/28/2021. TECHNIQUE: Linear transducer grayscale and color Doppler examination with attention to the region of the thyroid. FINDINGS: SIZE: Measurements of the thyroid lobes and nodules are given in sagittal, anteroposterior and transverse dimensions respectively. Right Thyroid Lobe: 5.5 x 2.6 x 2.1 cm, volume 15.4 mL. Previously 5.3 x 2.3 x 2.3 cm, volume 14.7 mL. Parenchyma: The gland echotexture is heterogeneous. Thyroid vascularity is normal. Left Thyroid Lobe: 5.3 x 3.1 x 4.0 cm, volume 37.8 mL. Previously 5.6 x 3.1 x 4.1 cm, volume 37.2 mL. Parenchyma: The gland echotexture is heterogeneous. Thyroid vascularity is normal. Isthmus: 0.2 cm in maximum AP dimension. Previously 0.5 cm. Estimated total number of nodules greater than or equal to 1 cm: 2. Compensation And Benefits Manager nodules are described as follows: 1. Location: Left mid. Size: 4.6 x 4.1 x 2.9 cm, volume 28.6 mL. Previously: 4.1 x 2.3 x 3.2 cm, volume 15.6 mL. Nodule characteristics: Composition: Solid (2). Echogenicity: Isoechoic (1). Shape: Not taller than wide (0). Margins: Ill-defined (0). Echogenic Foci: None (0). ACR TI-RADS total points: 3 Previous: 3 ACR TI-RADS category: 3 Previous: 3 Significant change in size (>/= 20% in 2 dimensions and minimal increase of 2 mm or 50% or greater increase in volume): Yes Change in features: No Change in ACR TI-RADS risk category: No 2. Location: Right inferior. Size: 3.0 x 2.2 x 1.8 cm, volume 6.2 mL. Previously: 3.5 x 2.1 x 1.8 cm, volume 7.1 mL. Nodule characteristics: Composition: Mixed cystic and solid (1). Echogenicity: Cannot be determined (1). Shape: Taller than wide (3). Margins: Ill-defined (0). Echogenic Foci: None (0). ACR TI-RADS total points: 5 Previous: 5 ACR TI-RADS category: 4 Previous: 4 Significant change in size (>/= 20% in 2 dimensions and minimal increase of 2 mm or 50% or greater increase in volume): No Change in features: No Change in ACR TI-RADS risk category: No NODES: No lymphadenopathy is seen in the tissue surrounding the thyroid gland. US/US thyroid IMPRESSION: Enlarged multinodular goiter. Both of the nodules described above meet criteria for percutaneous biopsy if this has not already been performed. US Thyroid: 09/13/2022 Right Thyroid Lobe: 5.3 x 2.3 x 2.3 cm, volume 14.7 mL. Previously 5.0 x 2.7 x 1.9 cm, volume 13.4 mL. Parenchyma: The gland echotexture is heterogeneous. Thyroid vascularity is increased. Left Thyroid Lobe: 5.6 x 3.1 x 4.1 cm, volume 37.2 mL. Previously 5.1 x 3.0 x 3.6 cm, volume 28.8 mL. Parenchyma: The gland echotexture is heterogeneous. Thyroid vascularity is increased. Isthmus: 0.5 cm in maximum AP dimension. Previously 0.5 cm. Estimated total number of nodules greater than or equal to 1 cm: 2. Compensation And Benefits Manager nodules are described as follows: 1.? Location: Right inferior. ?? ? Size: 3.5 x 2.1 x 1.8 cm, volume 7.1 mL. ?? ? Previously: 3.6 x 2.2 x 1.8 cm, volume 7.5 mL. Fine-needle aspiration of this nodule was performed on February 27, 2020. ?? ? Nodule characteristics: ?? ? Composition: Mixed cystic and solid (1). ?? ? Echogenicity: Cannot be determined (1). ?? ? Shape: Taller than wide (3). ?? ? Margins: Ill-defined (0). ?? ? Echogenic Foci: None (0). ? ACR TI-RADS total points: 5 Previous: 5 ?? ? ACR TI-RADS category: 4 Previous: 4 ? Significant change in size (>/= 20% in 2 dimensions and minimal increase of 2 mm or 50% or greater increase in volume): No ?? ? Change in features: No ?? ? Change in ACR TI-RADS risk category: No 2.? Location: Left mid. ?? ? Size: 4.1 x 2.3 x 3.2 cm, volume 15.6 mL. ?? ? Previously: 4.2 x 2.6 x 3.4 cm, volume 19.4 mL. In March 2017 this measured 3.8 x 3.0 x 2.5 cm. Fine-needle aspiration of this nodule was performed on October 26, 2017. ?? ? Nodule characteristics: ?? ? Composition: Solid (2). ?? ? Echogenicity: Hyperechoic (1). ?? ? Shape: Not taller than wide (0). ?? ? Margins: Smooth (0). ?? ? Echogenic Foci: None (0). ?? ? ACR TI-RADS total points: 3 Previous: 3 ?? ? ACR TI-RADS category: 3 Previous: 3 ? Significant change in size (>/= 20% in 2 dimensions and minimal increase of 2 mm or 50% or greater increase in volume): No ?? ? Change in features: No ?? ? Change in ACR TI-RADS risk category: No NODES: No lymphadenopathy is seen in the tissue surrounding the thyroid gland. 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 Social History Housing: Apartment Alcohol intake: never Patient Tobacco Use Status: Never used Tobacco e-Cigarette/Vaping Use: Never Used Second Hand Smoke Exposure: No Advance Directives Date on File: 04/13/21 service: No Current occupational status: disabled Cognitive needs: Yes Hearing needs: No Vision needs: Yes Physical Exam Vital Signs: Last Vital Signs Pulse 65 08/19/24 13:03 BP 130/66 08/19/24 13:03 BMI result Body Mass Index 39.4 Assessment & Plan Assessment & Plan (1) Non-toxic multinodular goiter: Code(s): E04.2 - Nontoxic multinodular goiter Category: Medical Plan: This is a 58-year-old male with a history of multinodular goiter status post FNA 10/26/2017: L upper lobe 3.8 x 2.5 x 3.0 cm - benign cytology 02/27/2020: R mid pole 2.8 x 1.7 x 1.6 cm - benign cytology. He appears to be clinically and biochemically euthyroid. Ultrasound 04/09/2024: I reviewed the images myself and while the report comments on increase in size of the left midpole nodule now measuring 4.6 X 4.1 X 2.9 cm, increased from 4.1 next 2.3 X 3.2 cm, when I reviewed the images it just seems there is a difference in measurement because of different sites for the points used. The nodule remains stable in size. Right-sided nodule also stable in size. At this point it has been 7 years since we have been following this nodules with prior biopsies of both the nodules being benign. I will see him back next year for a clinical exam but no need to repeat ultrasound next year. We will plan to get his next ultrasound in 2 years which would be in March of 2026. If nodules remain stable in size then, can consider. Following these unless there is any clinical changes. Given he does not have any compressive symptoms, no need for referral for surgery for now. Plan: -follow up in 1 year Plan See above Coding Level of Care Code Est Pt Level 3 (28054) Diagnoses Non-toxic multinodular goiter E04.2
== END 2024-08-19 13:28 | disposition home or self-care (01) ==
PROVIDERS: PCP Internal Medicine; Visit Provider Student in an Organized Health Care Education/Training Program
DX: E04.2 Nontoxic multinodular goiter (principal)
CPT/HCPCS: 99213

== ENCOUNTER → 2024-08-19 12:44 | Outpatient (BNVA) | payer MEDICARE, MEDICAID, SELFPAY | PROVIDERS: PCP Internal Medicine; Visit Provider Student in an Organized Health Care Education/Training Program | DX: E04.2 Nontoxic multinodular goiter (principal) | CPT/HCPCS: 99212 ==

== ENCOUNTER 2024-08-30 12:58 | Outpatient (AMB) | payer MEDICARE, MEDICAID, SELFPAY ==
--- NOTE | 2024-08-30 13:09 | AM.OFFVISNUR ---
Intake Visit Reasons: B-12 shot Allergies No Known Allergies [No Known Allergies*] Allergy (Verified 08/19/24 13:08) Office Meds cyanocobalamin (vitamin B-12) 1,000 mcg/mL injection solution Performing Provider: Veronique Hare MD [facility] [place] [facility] Administered by: Erica Carlton LPN on 08/30/24 13:09 Dose Route Admin Location Dispensed Lot Number Expiration Date [facility] Paper Cone Grader 1,000 mcg IM left deltoid 1 mL [id number] 07/13/25 55815-200-23 JACKY PHARMACEUT Assessment & Plan Assessment & Plan Orders: Orders AMB Vitamin B12 Injection Patient Supplied Today D51.0 - Vitamin B12 deficiency anemia due to intrinsic factor deficiency Medications: New cyanocobalamin (vitamin B-12) 1,000 mcg IM ONCE 1 mL 0RF D51.0 - Vitamin B12 deficiency anemia due to intrinsic factor deficiency
== END 2024-08-30 13:12 | disposition home or self-care (01) ==
PROVIDERS: PCP Internal Medicine; Visit Provider Internal Medicine
DX: D51.0 Vitamin B12 deficiency anemia due to intrinsic factor deficiency (principal)

== ENCOUNTER → 2024-08-30 12:58 | Outpatient (BNVA) | payer MEDICARE, MEDICAID, SELFPAY | PROVIDERS: PCP Internal Medicine; Visit Provider Internal Medicine | DX: D51.0 Vitamin B12 deficiency anemia due to intrinsic factor deficiency (principal) | CPT/HCPCS: 96372; J3420 ==

== ENCOUNTER 2024-10-08 12:51 | Outpatient (AMB) | payer MEDICARE, MEDICAID, SELFPAY ==
--- NOTE | 2024-10-08 13:08 | AM.OFFVISNUR ---
Intake Visit Reasons: B-12 Allergies No Known Allergies [No Known Allergies*] Allergy (Verified 08/19/24 13:08) Office Meds cyanocobalamin (vitamin B-12) 1,000 mcg/mL injection solution Performing Provider: Veronique Hare MD [facility] Administered by: Adilene Alfaro RN on 10/08/24 13:08 Dose Route Admin Location Dispensed Lot Number Expiration Date [place] Audiovisual Tech 1,000 mcg IM 1 mL [id number] 07/13/25 83682-039-53 [facility] PHARMACEUT Assessment & Plan Assessment & Plan Orders: Orders AMB Vitamin B12 Injection Patient Supplied Today E53.8 - Deficiency of other specified B group vitamins Medications: New cyanocobalamin (vitamin B-12) 1,000 mcg IM ONCE 1 mL 0RF E53.8 - Deficiency of other specified B group vitamins Coding
== END 2024-10-08 13:18 | disposition home or self-care (01) ==
PROVIDERS: PCP Internal Medicine; Visit Provider Internal Medicine
DX: E53.8 Deficiency of other specified B group vitamins (principal)

== ENCOUNTER → 2024-10-08 12:51 | Outpatient (BNVA) | payer MEDICARE, MEDICAID, SELFPAY | PROVIDERS: PCP Internal Medicine; Visit Provider Internal Medicine | DX: E53.8 Deficiency of other specified B group vitamins (principal) | CPT/HCPCS: 96372; J3420 ==

== ENCOUNTER 2024-11-05 12:42 | Outpatient (AMB) | payer MEDICARE, MEDICAID, SELFPAY ==
--- NOTE | 2024-11-05 13:14 | AM.OFFVISNUR ---
Intake Visit Reasons: b12 Allergies No Known Allergies [No Known Allergies*] Allergy (Verified 08/19/24 13:08) Office Meds cyanocobalamin (vitamin B-12) 1,000 mcg/mL injection solution Performing Provider: Veronique Hare MD Performing Location[facility] [place] [facility] Administered by: Erica Carlton LPN on 11/05/24 13:14 Dose Route Admin Location Dispensed Lot Number Expiration Date [facility] Music Director 1,000 mcg IM left deltoid 1 mL [id number] 07/13/25 98767-731-74 [facility] PHARMACEUT Assessment & Plan Assessment & Plan Orders: Orders AMB Vitamin B12 Injection Patient Supplied Today E53.8 - Deficiency of other specified B group vitamins Medications: New cyanocobalamin (vitamin B-12) 1,000 mcg IM ONCE 1 mL 0RF E53.8 - Deficiency of other specified B group vitamins Coding
== END 2024-11-05 13:13 | disposition home or self-care (01) ==
LOC: HO.HMCH 12:43
PROVIDERS: PCP Internal Medicine; Visit Provider Internal Medicine
DX: E53.8 Deficiency of other specified B group vitamins (principal)

== ENCOUNTER → 2024-11-05 12:42 | Outpatient (BNVA) | payer MEDICARE, MEDICAID, SELFPAY | PROVIDERS: PCP Internal Medicine; Visit Provider Internal Medicine | DX: E53.8 Deficiency of other specified B group vitamins (principal) | CPT/HCPCS: 96372; J3420 ==

== ENCOUNTER 2024-11-26 12:36 | Outpatient (AMB) | payer MEDICARE, MEDICAID, SELFPAY ==
--- NOTE | 2024-11-26 12:52 | AM.OFFVISMDC ---
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: No Accompanied by: Self / Same As Patient Allergies No Known Allergies [No Known Allergies*] Allergy (Verified 11/26/24 12:53) Medication List - Last Reconciled 11/26/24 by Veronique Hare MD acetaminophen (Tylenol) 650 mg (2 x 325 mg) PO Q6H PRN [AFO brace As directed] cholecalciferol (vitamin D3) 1,250 mcg PO QWEEK 12 weeks cyanocobalamin (vitamin B-12) 1,000 mcg IM Q4W 90 days diclofenac sodium 1% (Voltaren Arthritis Pain) 4 grams topical QID folic acid 1 mg PO DAILY hydrocortisone 2.5% (Proctosol HC) 1 appl OR BID-QID PRN lacosamide (Vimpat) 200 mg PO BID 90 days Lactobacillus rhamnosus GG (Culturelle) 1 cap PO BID lidocaine 5% 1 patch topical DAILY omeprazole 20 mg PO DAILY 90 days phenobarbital 97.2 mg PO DAILY phenytoin sodium extended 100 mg PO TID 90 days psyllium husk (Fiber (psyllium husk)) 0.52 grams PO BEDTIME PRN [ROLLATOR with seat As directed] HPI SWV G0439 HPI Details Jacqueline [id number] interpret [facility] Medical History Oropharyngeal dysphagia Annual physical exam Epilepsy Chronic static encephalopathy Uses walker Seizure Edentulous Cataract Preoperative clearance Aspiration into airway Tubular adenoma of colon Umbilical hernia Mental and behavioral problem History of meningitis Hypercholesterolemia Thyroid nodule Vitamin D deficiency Obstructive sleep apnea History of CVA (cerebrovascular accident) Seizure disorder Surgical History S/P MOVABLE BULKHEAD INSTALLER shunt Hx of colonoscopy History of brain surgery History of lung surgery Family History Father Myocardial infarction Mother Myocardial infarction Maternal Uncle Prostate cancer Brother Prostate cancer Sister No problems noted. Social History Housing: Apartment Alcohol intake: never Patient Tobacco Use Status: Never used Tobacco e-Cigarette/Vaping Use: Never Used Second Hand Smoke Exposure: No Advance Directives Date on File: 04/13/21 service: No Current occupational status: disabled Cognitive needs: Yes Hearing needs: No Vision needs: Yes Questionnaire Medicare Wellness Checkup What [age] your [age]?: 65-69 (59) What gender do you identify with?: male During the past 4 weeks, how much have you been bothered by emotional problems such as feeling anxious, depressed, irritable, sad or downhearted, and blue?: not at all During the past 4 weeks, has your physical & emotional health limited your social activities with family, friends, neighbors, or groups?: not at all During the past 4 weeks, how much bodily pain have you generally had?: moderate pain During the past 4 weeks, was someone available to help you if you needed & wanted help?: no, not at all During the past 4 weeks, what was the hardest physical activity you could do for at least 2 minutes?: very light Can you get to places out of walking distance without help? (For eg., can you travel alone on buses, taxis or drive your car?): Yes Can you go shopping for groceries or clothes without someone's help?: Yes Can you prepare your own meals?: Yes Can you do your housework without help?: Yes Because of any health problems, do you need the help of another person with your personal care needs such as eating, bathing, dressing or getting around the house?: Yes Can you handle your own money without help?: No During the past 4 weeks, how would you rate your health in general?: very good During the past 4 weeks how have things been going for you?: pretty well Are you having difficulties driving your car?: not applicable, I don't use a car Do you always fasten your seat belt when you are in a car?: yes, usually Have you fallen 2 or more times in the past year?: Yes Are you afraid of falling?: Yes Are you a smoker?: no During the past 4 weeks, how many drinks of wine, beer, or other alcoholic beverages did you have?: no alcohol at all Do you exercise for about 20 minutes 3 or more times a week?: no, I usually do not exercise this much Have you been given information to help with the following?: no: Hazards in your house that might hurt you? and no: Keeping track of your medications? How often do you have trouble taking medicines the way you have been told to take them?: I always take medicine as prescribed How confident are you that you can control & manage most of your health problems?: very confident What is your race?: Black or PHQ-9 Over the last 2 weeks, how often have you been bothered by any of the following problems? 1. Little interest or pleasure in doing things: several days 2. Feeling down, depressed, or hopeless: not at all 3. Trouble falling or staying asleep, or sleeping too much: not at all 4. Feeling tired or having little energy: not at all 5. Poor appetite or overeating: several days 6. Feeling bad about yourself - or that you are a failure or have let yourself or your family down: not at all 7. Trouble concentrating on things, such as reading the newspaper or watching television: not at all 8. Moving or speaking so slowly that other people could have noticed. Or the opposite - being so fidgety or restless that you have been moving around a lot more than usual: nearly every day 9. Thoughts that you would be better off or of hurting yourself in some way: not at all Total score: 5 Source: Developed by Drs. Feliz Cyr, Kathryn Stratton, Stefan Denise and colleagues, with an educational oliver from [email or web address]. PHQ-2/PHQ-9 PHQ-2 Over the last 2 weeks, how often have you been bothered by any of the following problems? 1. Little interest or pleasure in doing things: several days 2. Feeling down, depressed, or hopeless: not at all Total score: 1 If score is 3 or greater, continue 3. Trouble falling or staying asleep, or sleeping too much: not at all 4. Feeling tired or having little energy: not at all 5. Poor appetite or overeating: several days 6. Feeling bad about yourself - or that you are a failure or have let yourself or your family down: not at all 7. Trouble concentrating on things, such as reading the newspaper or watching television: not at all 8. Moving or speaking so slowly that other people could have noticed. Or the opposite - being so fidgety or restless that you have been moving around a lot more than usual: nearly every day 9. Thoughts that you would be better off or of hurting yourself in some way: not at all Total score: 5 0-4 None-Minimal, 5-9 Mild, 10-14 Moderate, 15-19 Moderately Severe, 20-27 Severe Source: Developed by Drs. Feliz Cyr, Kathryn Stratton, Stefan Denise and colleagues, with an educational oliver from [email or web address]. Thrive Questionnaire Date Thrive assessed: 11/26/24 I am a: Patient What is your living situation today?: I have a steady place to live Within the past 12 months, did the food you bought not last and you didn't have the money to get more?: Never true Within the past 12 months, did you worry whether your food would run out before you got money to buy more?: Never true Do you have trouble paying for medicines?: No Do you have trouble getting transportation to medical appointments?: No Do you have trouble paying your heating and electricity bill?: No Do you have trouble taking care of your child, family member or friend?: No Do you have trouble with day-to-day activities such as bathing, preparing meals, shopping, managing finances, etc.?: No Are you currently unemployed and looking for a job?: No Are you interested in more education?: No Please select the resources that you would like help with: None Currently or been in a relationship where the following occur: No concerns reported THRIVE Score: 0 BRENDA-7 AMB Questionnaire BRENDA-7 Date BRENDA - 7 assessed: 11/26/24 Feeling nervous, anxious, or on edge: 0 = Not at all Not being able to stop or control worryin = Not at all Worrying too much about different things: 0 = Not at all Trouble relaxin = Not at all Being so restless that it is hard to sit still: 0 = Not at all Becoming easily annoyed or irritable: 0 = Not at all Feeling afraid as if something awful might happen: 0 = Not at all Total BRENDA-7 score (0-4 normal; 5-9 mild; 10-14 moderate; 15-21 severe): 0 Source: Developed by Drs. Feliz Cyr, Kathryn Stratton, Stefan Denise and colleagues, with an educational oliver from [email or web address]. Review of Systems Const Denies poor appetite and Denies weakness Eyes Denies no additional complaints ENT Reports Normal hearing present, Denies dizziness, Denies nasal congestion, Denies tinnitus and Denies sore throat Card Denies chest pain, Denies syncope, Denies rapid heart rate and Denies dyspnea Resp Denies cough and Denies dyspnea GI Denies change in stool character, Reports constipation, Denies diarrhea, Denies nausea and Denies vomiting Denies dysuria and Denies urinary frequency Neuro Reports Normal hearing present, Denies confusion, Denies dizziness, Denies syncope and Denies weakness Psych Denies confusion Physical Exam Vital Signs: Last Vital Signs Pulse 64 11/26/24 12:53 BP 128/70 11/26/24 12:53 Pulse Ox 97 11/26/24 12:53 Oxygen Delivery Method Room Air 11/26/24 12:53 BMI result Body Mass Index 38.4 Const General: No confusion Orientation/consciousness: No confusion HEENT Other: R ear impacted cerumen, L TM intact Head: Yes normocephalic Ears: external ears normal Face and sinus: Yes normal facial exam Mouth: moist mucous membranes Throat: Yes tonsils normal Eyes Conjunctivae: conjunctivae normal Pupils: Equal, round and reactive pupils present and Pupil accommodation reflex normal Direct Ophthalmoscopy: normal light reflex Neck Neck: No lymphadenopathy Thyroid: Thyroid normal Chest Chest palpation & inspection: normal inspection of the chest Resp Effort & Inspection: normal respiratory effort and no audible wheezes Auscultation: clear to auscultation bilaterally, no crackles, no wheezes and lung sounds not diminished Cardio Rate: regular rate Rhythm: regular rhythm Peripheral pulses: radial pulses present and dorsalis pedis present GI Other: guaiac negative , normal prostate Palpation (GI): no masses Auscultation: normal bowel sounds and normoactive bowel sounds Male General Exam: Yes normal external exam Skin General skin exam: no rashes or lesions noted Rashes: no rashes Neuro Other: L sided weakness L hand 4/5 and R 5/5 General: No confusion Cranial nerves: Yes Equal, round and reactive pupils present and Yes Normal hearing present Cognition (Neuro): normal cognition Extrem General: No edema Assessment & Plan Assessment & Plan (1) Medicare annual wellness visit, subsequent: Code(s): Z00.00 - Encounter for general adult medical examination without abnormal findings Plan: Patient is advised to eat healthy, keep well hydrated, keep active and have adequate sleep. 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 Holley Code(s): G40.909 - Epilepsy, unspecified, not intractable, without status epilepticus Plan: Patient on Vimpat, phenobarbital and Dilantin (4) Hypercholesterolemia: Code(s): E78.00 - Pure hypercholesterolemia, unspecified Plan: Avoid fried foods, chicken skin, eggs, butter margarine, pastries and meat. Be it pork or beef they have a lot of cholesterol LDL goal of less than 100 and triglyceride of less than 150 (5) Obstructive sleep apnea: Comment: Cannot tolerate CPAP Code(s): G47.33 - Obstructive sleep apnea (adult) (pediatric) Plan: Discussed about importance of treating obstructive sleep apnea. (6) GERD (gastroesophageal reflux disease): Code(s): K21.9 - Gastro-esophageal reflux disease without esophagitis Qualifiers: Esophagitis presence: without esophagitis Qualified Code(s): K21.9 - Gastro-esophageal reflux disease without esophagitis Plan: Avoid the foods that causes that usually spicy foods, tomato products, juices, coffee, soda and foods that your sensitive to. After eating do not lie down, allow 3-4 hours before in lie down. And keep the head of bed above 30 degrees to avoid the acid from going up. (7) Anemia: Code(s): D64.9 - Anemia, unspecified Qualifiers: Anemia type: unspecified type Qualified Code(s): D64.9 - Anemia, unspecified Plan: Continuing to monitor stable (8) Pernicious anemia: Code(s): D51.0 - Vitamin B12 deficiency anemia due to intrinsic factor deficiency Plan: Patient receives B vitamin B12 IM (9) Obesity (BMI 30-39.9): Code(s): E66.9 - Obesity, unspecified Plan: Diet and exercise (10) Impaired fasting blood sugar: Code(s): R73.01 - Impaired fasting glucose Plan: Decrease the amount of carbohydrate intake, pasta, bread, rice and potatoes are all sugar and that is aside from all the sweet stuff, remember that fruits are good but they are Sweet also. (11) Foot drop, left: Code(s): M21.372 - Foot drop, left foot Plan: Patient has the brace this is from the CVA (12) Tubular adenoma of colon: Comment: June 2018 5 years Code(s): D12.6 - Benign neoplasm of colon, unspecified Plan: Patient is reminded about colonoscopy (13) Right knee pain: Code(s): M25.561 - Pain in right knee Plan History of Present Illness The patient is a 59-year-old male presenting for an annual well visit and physical examination. He has a history of a cerebrovascular accident resulting in left hemiparesis and foot drop. The patient manages seizure disorder with a regimen of anti-epileptic medications and has a history of intolerance to CPAP therapy for obstructive sleep apnea. His chronic conditions include hypercholesterolemia, GERD, and anemia, all of which have been stable. The patient's impaired glucose tolerance has been monitored, and his vitamin D supplementation is managed according to previous laboratory assessments. Endocrine evaluations of a multinodular goiter have led to negative fine needle aspiration biopsies in the past. The patient experiences right knee pain, which is a concern following a recent fall. His knee condition, combined with a history of falls, raises significant concern for his safety and mobility. The patient denies any recent episodes of syncope or gastrointestinal distress. He maintains an active lifestyle within his functional limitations and has a family history significant for cardiovascular disease and prostate cancer. Health Maintenance - Tetanus vaccine up to date - Pneumonia vaccine received - Discussion on the shingles vaccine, which is available at pharmacies - Monitoring of cholesterol levels with an LDL goal of <100 mg/dL and triglycerides <150 mg/dL - Annual thyroid ultrasound recommendation - Colon cancer screening: last colonoscopy in 2017, with plans for scheduling another - Vitamin D supplementation weekly Social History - Does not consume alcohol or smoke tobacco - Engages in physical activity as tolerated - Experiences pain and mobility issues due to right knee pain and left foot drop - Utilizes knee brace and orthopedic shoes to assist with mobility Review of Systems - Neurological: Denies syncope, seizures managed with medication - Respiratory: Denies shortness of breath - Cardiovascular: Denies chest pain - Gastrointestinal: Denies nausea, vomiting, and swallowing difficulties; reports stable GERD - Genitourinary: Urinates once per night - Musculoskeletal: Reports right knee pain; denies left knee pain - General: Denies recent weight gain, reports 5-pound weight loss Physical Exam General: Cooperative, healthy appearing, comfortable, no acute distress and well developed Orientation: Patient oriented x3 Limitations: Left hemiparesis due to history of CVA Head: Normal to inspection Ears: Hearing grossly normal bilaterally, some ear wax in the right ear Nose: Normal external nose present Face and sinus: Normal facial exam Eyes: Appearance normal, both eyes and all related structures Neck: Normal visual inspection and Yes full ROM Respiratory: Normal respiratory effort and able to speak in complete sentences. Clear to auscultation bilaterally Cardiovascular: Regular rate and rhythm. Normal S1 and S2 GI: Normal to inspection. Soft to palpation and nontender Skin: No rashes or lesions noted Neuro: Patient oriented x3, cognitive impairment noted Extremities: Right knee pain noted, left foot drop present, brace on left foot, normal pulse in extremities Results - Labs: Chronic anemia with normal electrolytes, low normal potassium; glucose at 109 mg/dL; past cholesterol levels with LDL at 129 mg/dL - Imaging: Thyroid ultrasound previously performed; no recent imaging reports provided - Procedures: Past colonoscopy in 2018 Plan Today?s plan focuses on a comprehensive approach linking acute illness assessments with the need for wellness and preventive measures. Chronic illnesses such as hypercholesterolemia, GERD, seizure disorder, and obstructive sleep apnea continue receiving targeted management with medications and therapeutic measures. These include adjusting medications like Omeprazole and seizure medications while promoting lifestyle adjustments to uphold metabolic and cardiovascular health. Thyroid evaluations sustain the surveillance plan for his multinodular goiter amid facilitating thyroid health maintenance. Knee pain treatment includes the use of Voltaren gel and new mobility assistance, driving attention toward minimizing fall risks alongside securing orthopaedic support. Additional screening comprises scheduling a colonoscopy for colon cancer and advocating for vigilance in anemia monitoring given previously observed stabilizations. Modern undertakings blend pharmacological treatments with guiding patients on procedural timings, while vaccinations appear current with an opportunity to advance preventative prophylaxis through shingles immunization readily available. Patient was informed and verbally consented to the use of an ambient scribe for clinic note documentation during this visit. Discussion Notes I engaged in a detailed discussion with the patient regarding the management of his ongoing health issues, including the chronic condition of hypercholesterolemia targeted by medication adjustments for LDL optimization. The importance of enduring management of obstructive sleep apnea was highlighted alongside the challenges posed by CPAP intolerance. Medication adherence for seizure disorder, including Vimpat, Phenobarbital, and Dilantin, was emphasized to avoid potential complications. Discussion on newly observed knee pain and prior falls led to advising on the use of Voltaren gel and reinforcing orthopaedic support in mitigating subsequent mobility risks. The patient's thyroid health management was outlined with plans for repeat ultrasound monitoring. Considerations were shared on overall wellness, with suggested colon cancer screening through an updated colonoscopy reflecting previous procedural history, and assurances that vaccine status is current, with emphasis on the optional but beneficial shingles vaccine. Lastly, a comprehensive follow-up protocol for impending blood work and diagnostics was agreed upon to monitor evolving health profiles, driving forward future strategic assessments. Patient Instructions - Continue current medications as prescribed, ensuring adherence to seizure management. - Apply Voltaren gel to the right knee as instructed for pain relief. - Engage in activities within comfort limits to prevent falls and confer with orthopaedics if knee symptoms persist. - Schedule and attend a fasting blood work lab appointment. - Review colonoscopy schedule and complete when advised by the medical team. - Consider getting the shingles vaccine in the upcoming months for added preventative health integrity. - Follow up in 3 months for reassessment of ongoing conditions and management adjustments. Orders: Orders Complete Blood Count Auto Diff Today Z86.73 - Personal history of transient ischemic attack (TIA), and cerebral infarction without residual deficits Comprehensive Met. Panel Today Z86.73 - Personal history of transient ischemic attack (TIA), and cerebral infarction without residual deficits Free T4 (Free Thyroxine) Today Z86.73 - Personal history of transient ischemic attack (TIA), and cerebral infarction without residual deficits Lipid Panel Today E78.00 - Pure hypercholesterolemia, unspecified, Z86.73 - Personal history of transient ischemic attack (TIA), and cerebral infarction without residual deficits Thyroid Stimulating Hormone Today Z86.73 - Personal history of transient ischemic attack (TIA), and cerebral infarction without residual deficits Phenobarbital Today Z86.73 - Personal history of transient ischemic attack (TIA), and cerebral infarction without residual deficits XR knee RT 2V Today M25.561 - Pain in right knee IRON PROFILE Today Z86.73 - Personal history of transient ischemic attack (TIA), and cerebral infarction without residual deficits Ferritin Today Z86.73 - Personal history of transient ischemic attack (TIA), and cerebral infarction without residual deficits Prostate Specific Antigen Scr Today Z86.73 - Personal history of transient ischemic attack (TIA), and cerebral infarction without residual deficits UA CC w/rflx Micro + Cult Today R30.0 - Dysuria, Z86.73 - Personal history of transient ischemic attack (TIA), and cerebral infarction without residual deficits Phenytoin Dilantin Today Z86.73 - Personal history of transient ischemic attack (TIA), and cerebral infarction without residual deficits Referrals Gastroenterology Referral D12.6 - Benign neoplasm of colon, unspecified Medications: New [rollator] As directed 1 ea 0RF M21.372 - Foot drop, left foot Refilled diclofenac sodium 1% (Voltaren Arthritis Pain) apply to single knee, ankle, foot; for foot includes sole/toes/top of foot 4 grams topical QID 100 grams 0RF M25.562 - Pain in left knee Quality Reporting (2019) Depression/Bipolar (159/160/161/177) PHQ-9: Total score: 5 Coding Level of Care Code Medicare Subsequent (G0439) Diagnoses Medicare annual wellness visit, subsequent Z00.00 History of CVA (cerebrovascular accident) Z86.73 Seizure disorder G40.909 Hypercholesterolemia E78.00 Obstructive sleep apnea G47.33 Gastroesophageal reflux disease without esophagitis K21.9 Esophagitis presence: without esophagitis Anemia, unspecified type D64.9 Anemia type: unspecified type Pernicious anemia D51.0 Obesity (BMI 30-39.9) E66.9 Impaired fasting blood sugar R73.01 Foot drop, left M21.372 Tubular adenoma of colon D12.6 Right knee pain M25.561
[2024-11-26 12:53] VITALS: BP 128/70; PULSE 64; O2SAT 97; BMI 38.4
== END 2024-11-26 14:01 | disposition home or self-care (01) ==
LOC: HO.HMCH 12:36
PROVIDERS: PCP Internal Medicine; Visit Provider Internal Medicine
DX: Z00.00 Encounter for general adult medical examination without abnormal findings (principal); Z86.73 Personal history of transient ischemic attack (TIA), and cerebral infarction without residual deficits; G40.909 Epilepsy, unspecified, not intractable, without status epilepticus; E78.00 Pure hypercholesterolemia, unspecified; G47.33 Obstructive sleep apnea (adult) (pediatric); K21.9 Gastro-esophageal reflux disease without esophagitis; D64.9 Anemia, unspecified; D51.0 Vitamin B12 deficiency anemia due to intrinsic factor deficiency; E66.9 Obesity, unspecified; R73.01 Impaired fasting glucose; M21.372 Foot drop, left foot; D12.6 Benign neoplasm of colon, unspecified; M25.561 Pain in right knee

== ENCOUNTER → 2024-11-26 12:36 | Outpatient (BNVA) | payer MEDICARE, MEDICAID, SELFPAY | PROVIDERS: PCP Internal Medicine; Visit Provider Internal Medicine ==

== ENCOUNTER 2024-12-03 11:30 | Outpatient (REF) | payer MEDICARE, MEDICAID, SELFPAY ==
--- NOTE | ~2024-12-03 | XR_ITS ---
CLINICAL HISTORY: M25.561 - Pain in right knee 2 views right knee Comparison: None Findings: There is no fracture or dislocation. Joint spaces are preserved. There are small patellar osteophytes. There is no effusion. Impression: No acute findings. This document has been electronically signed by: Luis Murguia MD on 12/05/2024 05:05:17
== END 2024-12-03 11:31 | disposition home or self-care (01) ==
LOC: HO.XRAY 11:30
PROVIDERS: PCP Internal Medicine; Visit Provider Internal Medicine
DX: M25.561 Pain in right knee (principal)
CPT/HCPCS: 73560

== ENCOUNTER → 2024-12-03 11:36 | Outpatient (BNV) | payer MEDICARE, MEDICAID, SELFPAY | PROVIDERS: PCP Internal Medicine; Visit Provider Radiology Diagnostic Radiology | DX: M25.561 Pain in right knee (principal) | CPT/HCPCS: 73560 ==

== ENCOUNTER 2025-01-03 13:08 | Outpatient (AMB) | payer MEDICARE, MEDICAID, SELFPAY ==
--- NOTE | 2025-01-03 13:29 | AM.OFFVISNUR ---
Intake Visit Reasons: B-12 Allergies No Known Allergies [No Known Allergies*] Allergy (Verified 11/26/24 12:53) Office Meds cyanocobalamin (vitamin B-12) 1,000 mcg/mL injection solution Performing Provider: Veronique Hare MD [facility] Administered by: Adilene Alfaro RN on 01/03/25 13:29 Dose Route Admin Location Dispensed Lot Number Expiration Date NDC [employer] 1,000 mcg IM 1 mL [id number] 01/11/25 74122-697-78 [facility] Assessment & Plan Assessment & Plan Orders: Orders AMB Vitamin B12 Injection Patient Supplied Today E53.8 - Deficiency of other specified B group vitamins Medications: New cyanocobalamin (vitamin B-12) 1,000 mcg IM ONCE 1 mL 0RF E53.8 - Deficiency of other specified B group vitamins Coding
== END 2025-01-03 13:39 | disposition home or self-care (01) ==
LOC: HO.HMCH 13:09
PROVIDERS: PCP Internal Medicine; Visit Provider Internal Medicine
DX: E53.8 Deficiency of other specified B group vitamins (principal)

== ENCOUNTER → 2025-01-03 13:08 | Outpatient (BNVA) | payer MEDICARE, MEDICAID, SELFPAY | PROVIDERS: PCP Internal Medicine; Visit Provider Internal Medicine | DX: E53.8 Deficiency of other specified B group vitamins (principal) | CPT/HCPCS: 96372; J3420 ==

== ENCOUNTER 2025-01-28 05:59 | Outpatient (REF) | payer MEDICARE, MEDICAID, SELFPAY ==
[2025-01-28 06:20] LABS: MANUAL DIFF FLAG NO
[2025-01-28 07:41] LABS: Basophils Absolute Auto 0.1 X10*3/uL (0.0-0.2); Eosinophils Absolute Auto 0.1 X10*3/uL (0.0-0.4); Eosinophils Percent Auto 2.4 % (0-4); Hematocrit 38.6 % (42.0-52.0); Hemoglobin 12.7 g/dl (14.0-18.0); Imm Gran Abs Auto 0.01 X10*3/uL (0.00-0.03); Imm Gran Pct Auto 0.2 % (0.0-0.4); Lymphocytes Absolute Auto 1.5 X10*3/uL (1.2-4.9); Lymphocytes Percent Auto 29.9 % (20-40); Mean Corpuscular HGB Conc 32.9 g/dl (31.0-36.0); Mean Corpuscular Hemoglobin 28.1 pg (27.0-33.0); Mean Corpuscular Volume 85.4 fL (80.0-98.0); Mean Platelet Volume 11.1 fL (9.4-12.4); Monocytes Absolute Auto 0.4 X10*3/uL (0.1-1.2); Monocytes Percent Auto 8.4 % (2-11); Neutrophils Absolute Auto 2.9 x10*3/uL (2.0-8.3); Neutrophils Percent Auto 58.1 % (45-73); Platelet Count 211 X10*3/uL (160-400); Red Blood Count 4.52 X10*6/uL (4.60-5.80); Red Cell Distribution Width 14.5 % (11.0-16.0)
[2025-01-28 07:59] LABS: Alanine Aminotransferase 10 U/L (0-40); Albumin Level 4.1 g/dL (3.5-5.0); Alkaline Phosphatase 120 U/L (39-117); Anion Gap 12 (12-20); Aspartate Amino Transferase 19 U/L (5-37); Bilirubin Total 0.2 mg/dL (0.0-1.0); Blood Urea Nitrogen 18 mg/dL (9-16); Calcium 9.1 mg/dL (8.4-10.2); Carbon Dioxide 25 mmol/L (22-29); Chloride 110 mmol/L (96-108); Cholesterol 189 mg/dL (<200); Estimated Glomerular Filt Rate > 60; Glucose Random 100 mg/dL (60-115); HDL Cholesterol 43 mg/dL (>40); Iron 73 mcg/dL (45-160); LDL Cholesterol Calculated 119 mg/dL (<100); Percent Iron Saturation 36 % (15-50); Potassium 3.5 mmol/L (3.3-5.1); Sodium 143 mmol/L (135-145); Total Iron Binding Capacity 201 mcg/dL (228-428); Total Protein 6.9 g/dL (6.5-8.0); Triglycerides 136 mg/dL (<150); Unsaturated Iron Binding 128 ug/dL
[2025-01-28 08:18] LABS: Prostate Specific Antigen Scr 0.12 ng/mL (<0.05-4.0)
[2025-01-28 08:21] LABS: Ferritin 166 ng/mL (20-250); Free T4 (Free Thyroxine) 0.89 ng/dL (0.71-1.85); Thyroid Stimulating Hormone 2.18 uIU/mL (0.32-4.0)
[2025-01-28 08:58] LABS: Phenytoin Dilantin 17.9 ug/mL (10.0-20.0)
== END 2025-01-28 06:00 | disposition home or self-care (01) ==
LOC: HO.LAB 05:59
PROVIDERS: PCP Internal Medicine; Visit Provider Internal Medicine
DX: E78.00 Pure hypercholesterolemia, unspecified (principal); Z86.73 Personal history of transient ischemic attack (TIA), and cerebral infarction without residual deficits; Z12.5 Encounter for screening for malignant neoplasm of prostate
CPT/HCPCS: 36415; 80053; 80061; 80184; 80185; 82728; 83540; 84153; 84439; 84443; 85025

== ENCOUNTER → 2025-02-03 13:09 | Outpatient (BNVA) | payer MEDICARE, MEDICAID, SELFPAY | PROVIDERS: PCP Internal Medicine; Visit Provider Internal Medicine | DX: Z13.89 Encounter for screening for other disorder (principal) ==

== ENCOUNTER 2025-02-04 13:04 | Outpatient (AMB) | payer MEDICARE, MEDICAID, SELFPAY ==
--- NOTE | 2025-02-04 13:29 | A.OFFVIS_ITS ---
Intake Visit Reasons: B-12 Allergies No Known Allergies (No Known Allergies*) Allergy (Verified 11/26/24 12:53) PFS Medical History Oropharyngeal dysphagia Annual physical exam Epilepsy Chronic static encephalopathy Uses walker Seizure Edentulous Cataract Preoperative clearance Aspiration into airway Tubular adenoma of colon Umbilical hernia Mental and behavioral problem History of meningitis Hypercholesterolemia Thyroid nodule Vitamin D deficiency Obstructive sleep apnea History of CVA (cerebrovascular accident) Seizure disorder Surgical History S/P NURSE PRACTITIONER MANAGER shunt Hx of colonoscopy History of brain surgery History of lung surgery Family History Father Myocardial infarction Mother Myocardial infarction Maternal Uncle Prostate cancer Brother Prostate cancer Sister No problems noted. Social History Housing: Apartment Alcohol intake: never Patient Tobacco Use Status: Never used Tobacco e-Cigarette/Vaping Use: Never Used Second Hand Smoke Exposure: No Advance Directives Date on File: 04/13/21 service: No Current occupational status: disabled Cognitive needs: Yes Hearing needs: No Vision needs: Yes Office Meds cyanocobalamin (vitamin B-12) 1,000 mcg/mL injection solution Performing Provider: Veronique Hare MD [facility] Administered by: Giovanna Tavares RN on 02/04/25 13:30 Dose Route Admin Location Dispensed Lot Number Expiration Date [facility] Grab Set[employer] 1,000 mcg IM left deltoid 1 mL [id number] 06/13/26 26163-248-40 [facility] [employer] Total Dispensed Waste 1 mL 0 % Comments: Verified patient name and date of , NKDA, given in left deltoid IM. Patient tolerated well, to return in 1 month for next nurse visit for injection-Giovanna Tavares RN Assessment & Plan Assessment & Plan (1) B12 deficiency: Code(s): E53.8 - Deficiency of other specified B group vitamins Category: Medical Orders: Orders AMB Vitamin B12 Injection Patient Supplied Today E53.8 - Deficiency of other specified B group vitamins Coding Diagnoses B12 deficiency E53.8
== END 2025-02-04 13:39 | disposition home or self-care (01) ==
LOC: HO.HMCH 13:04
PROVIDERS: PCP Internal Medicine; Visit Provider Internal Medicine
DX: E53.8 Deficiency of other specified B group vitamins (principal)

== ENCOUNTER → 2025-02-04 13:04 | Outpatient (BNVA) | payer MEDICARE, MEDICAID, SELFPAY | PROVIDERS: PCP Internal Medicine; Visit Provider Internal Medicine | DX: E53.8 Deficiency of other specified B group vitamins (principal) | CPT/HCPCS: 96372; 99212; J3420 ==

== ENCOUNTER 2025-03-06 12:37 | Outpatient (AMB) | payer MEDICARE, MEDICAID, SELFPAY ==
--- NOTE | 2025-03-06 12:52 | AM.OFFVISNUR ---
Intake Visit Reasons: B12 Shot Allergies No Known Allergies (No Known Allergies*) Allergy (Verified 11/26/24 12:53) Office Meds cyanocobalamin (vitamin B-12) 1,000 mcg/mL injection solution Performing Provider: Veronique Hare MD [facility] Administered by: Erica Carlton LPN on 03/06/25 12:52 Dose Route Admin Location Dispensed Lot Number Expiration Date [facility] Religious Assistant 1,000 mcg IM left deltoid 1 mL [id number] 11/10/25 67200-869-18 [employer] Total Dispensed Waste 1 mL 0 % Assessment & Plan Assessment & Plan Orders: Orders AMB Vitamin B12 Injection Patient Supplied Today E53.8 - Deficiency of other specified B group vitamins Coding
== END 2025-03-06 12:53 | disposition home or self-care (01) ==
LOC: HO.HMCH 12:38
PROVIDERS: PCP Internal Medicine; Visit Provider Internal Medicine
DX: E53.8 Deficiency of other specified B group vitamins (principal)

== ENCOUNTER → 2025-03-06 12:37 | Outpatient (BNVA) | payer MEDICARE, MEDICAID, SELFPAY | PROVIDERS: PCP Internal Medicine; Visit Provider Internal Medicine | DX: E53.8 Deficiency of other specified B group vitamins (principal) | CPT/HCPCS: 96372; J3420 ==

== ENCOUNTER 2025-03-10 12:50 | Outpatient (AMB) | payer MEDICARE, MEDICAID, SELFPAY ==
[2025-03-10 12:53] VITALS: BP 128/60; PULSE 70; RESP 18; O2SAT 98; BMI 38.9
--- NOTE | 2025-03-10 12:53 | A.OFFPC_ITS ---
Vital Signs 03/10/25 12:53 Height 5 ft 5 in Weight 233 lb 14.567 oz BMI 38.9 BP 128/60 Blood Pressure Location Rt brachial Position Sitting Respiration 18 Pulse 70 Pulse Source Pulse Oximeter Temp Source Temporal Artery Scan Pulse Oximetry (%) 98 Oxygen Delivery Method Room Air Intake Visit Reasons: Hx of cva Doggy Daycare Activities Director Required: Yes Doggy Daycare Activities Director Language: Ecuadorean Accompanied by: Sister Allergies No Known Allergies (No Known Allergies*) Allergy (Verified 03/10/25 12:54) Medication List - Last Reconciled 03/10/25 by Veronique Hare MD acetaminophen (Tylenol) 650 mg (2 x 325 mg) PO Q6H PRN [AFO brace As directed] cholecalciferol (vitamin D3) 1,250 mcg PO QWEEK 12 weeks cyanocobalamin (vitamin B-12) 1,000 mcg IM Q4W 90 days diclofenac sodium 1% (Voltaren Arthritis Pain) 4 grams topical QID folic acid 1 mg PO DAILY hydrocortisone 2.5% (Proctosol HC) [address] BID-QID PRN lacosamide (Vimpat) 200 mg PO BID 90 days Lactobacillus rhamnosus GG (Culturelle) 1 cap PO BID lidocaine 5% 1 patch topical DAILY omeprazole 20 mg PO DAILY 90 days phenobarbital 97.2 mg PO DAILY phenytoin sodium extended 100 mg PO TID 90 days psyllium husk (Fiber (psyllium husk)) 0.52 grams PO BEDTIME PRN [rollator As directed] [ROLLATOR with seat As directed] Tobacco use date assessed: 03/10/25 Dental Screening Dental Screen Date: 03/10/25 Did you have a dental visit in the last 12 months?: No Did you have a dental problem in the last 6 months where you did not have access to dental care?: No Was dental information given to patient?: No HPI Hx of cva HPI Details misty [id number] interpret [facility] Medical History Oropharyngeal dysphagia Annual physical exam Epilepsy Chronic static encephalopathy Uses walker Seizure Edentulous Cataract Preoperative clearance Aspiration into airway Tubular adenoma of colon Umbilical hernia Mental and behavioral problem History of meningitis Hypercholesterolemia Thyroid nodule Vitamin D deficiency Obstructive sleep apnea History of CVA (cerebrovascular accident) Seizure disorder Surgical History 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 Social History Housing: Apartment Alcohol intake: never Patient Tobacco Use Status: Never used Tobacco e-Cigarette/Vaping Use: Never Used Second Hand Smoke Exposure: No Advance Directives Date on File: 04/13/21 service: No Current occupational status: disabled Cognitive needs: Yes Hearing needs: No Vision needs: Yes Questionnaire PHQ-9 Over the last 2 weeks, how often have you been bothered by any of the following problems? 1. Little interest or pleasure in doing things: not at all 2. Feeling down, depressed, or hopeless: not at all 3. Trouble falling or staying asleep, or sleeping too much: not at all 4. Feeling tired or having little energy: not at all 5. Poor appetite or overeating: not at all 6. Feeling bad about yourself - or that you are a failure or have let yourself or your family down: not at all 7. Trouble concentrating on things, such as reading the newspaper or watching television: not at all 8. Moving or speaking so slowly that other people could have noticed. Or the opposite - being so fidgety or restless that you have been moving around a lot more than usual: not at all 9. Thoughts that you would be better off or of hurting yourself in some way: not at all Total score: 0 Source: Developed by Drs. Feliz Cyr, Kathryn Stratton, Stefan Denise and colleagues, with an educational oliver from [employer]. Thrive Questionnaire Date Thrive assessed: 03/10/25 I am a: Patient What is your living situation today?: I have a steady place to live Within the past 12 months, did the food you bought not last and you didn't have the money to get more?: Never true Within the past 12 months, did you worry whether your food would run out before you got money to buy more?: Never true Do you have trouble paying for medicines?: No Do you have trouble getting transportation to medical appointments?: No Do you have trouble paying your heating and electricity bill?: No Do you have trouble taking care of your child, family member or friend?: No Do you have trouble with day-to-day activities such as bathing, preparing meals, shopping, managing finances, etc.?: No Are you currently unemployed and looking for a job?: No Are you interested in more education?: No Please select the resources that you would like help with: None Currently or been in a relationship where the following occur: No concerns reported THRIVE Score: 0 AUDIT C Alcohol Use Questionnaire (AUDIT-C) 1. How often do you have a drink containing alcohol?: Never 2. How many drinks containing alcohol do you have on a typical day when you are drinking?: 1 or 2 (none) 3. How often do you have six or more drinks on one occasion?: Never Total Score: 0 Score Reviewed/Action Taken: No BRENDA-7 AMB Questionnaire BRENDA-7 Date BRENDA - 7 assessed: 03/10/25 Feeling nervous, anxious, or on edge: 0 = Not at all Not being able to stop or control worryin = Not at all Worrying too much about different things: 0 = Not at all Trouble relaxin = Not at all Being so restless that it is hard to sit still: 0 = Not at all Becoming easily annoyed or irritable: 0 = Not at all Feeling afraid as if something awful might happen: 0 = Not at all Total BRENDA-7 score (0-4 normal; 5-9 mild; 10-14 moderate; 15-21 severe): 0 Source: Developed by Drs. Feliz Cyr, Kathryn Stratton, Stefan Denise and colleagues, with an educational oliver from [employer]. Physical exam (Primary Care) Vital Signs: Last Vital Signs Pulse 70 03/10/25 12:53 Resp 18 03/10/25 12:53 BP 128/60 03/10/25 12:53 Pulse Ox 98 03/10/25 12:53 Oxygen Delivery Method Room Air 03/10/25 12:53 BMI result Body Mass Index 38.9 Tobacco/Smoking Status: Tobacco use Status Tobacco use date assessed 03/10/25 03/10/25 12:59 Patient Tobacco Use Status Never used Tobacco 03/10/25 12:59 e-Cigarette/Vaping Use Never Used 03/10/25 12:59 PHQ-9: PHQ-9 Score PHQ-9: Total score 0 03/10/25 13:36 Thrive Assessment: Date of Thrive Assessment Date Thrive assessed 03/10/25 03/10/25 12:59 Currently or been in a relationship where the following occur: No concerns reported Const General: alert; No acute distress Eyes Conjunctivae: conjunctivae normal Resp Auscultation: clear to auscultation bilaterally Cardio Rate: regular rate Rhythm: regular rhythm GI Inspection: Yes normal to inspection Coding Level of Care Code Est Pt Level 4 (39660) Complex EM visit Add On G2211 Diagnoses Seizure disorder G40.909 History of CVA (cerebrovascular accident) Z86.73 Right knee pain M25.561 Tubular adenoma of colon D12.6 Gastroesophageal reflux disease without esophagitis K21.9 Esophagitis presence: without esophagitis Impaired fasting blood sugar R73.01 Hypercholesterolemia E78.00 Foot drop, left M21.372 Assessment & Plan Assessment & Plan (1) Seizure disorder: Comment: October 2015 generalized tonic-clonic, 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 Holley Code(s): G40.909 - Epilepsy, unspecified, not intractable, without status epilepticus Category: Medical Plan: Continue with present medication and follows up with Neurology (2) History of CVA (cerebrovascular accident): Comment: Left hemiparesis Code(s): Z86.73 - Personal history of transient ischemic attack (TIA), and cerebral infarction without residual deficits Category: Medical Plan: Supportive treatment (3) Right knee pain: Code(s): M25.561 - Pain in right knee Category: Medical Plan: X-ray did not reveal any problem except for small indication of starting osteoa rthritis (4) Tubular adenoma of colon: Comment: June 2018 5 years Code(s): D12.6 - Benign neoplasm of colon, unspecified Category: Medical Plan: Patient is reminded about colonoscopy (5) GERD (gastroesophageal reflux disease): Code(s): K21.9 - Gastro-esophageal reflux disease without esophagitis Category: Medical Qualifiers: Esophagitis presence: without esophagitis Qualified Code(s): K21.9 - Gastro-esophageal reflux disease without esophagitis Plan: Avoid the foods that causes that usually spicy foods, tomato products, juices, coffee, soda and foods that your sensitive to. After eating do not lie down, allow 3-4 hours before in lie down. And keep the head of bed above 30 degrees to avoid the acid from going up. (6) Impaired fasting blood sugar: Code(s): R73.01 - Impaired fasting glucose Category: Medical Plan: Decrease the amount of carbohydrate intake, pasta, bread, rice and potatoes are all sugar and that is aside from all the sweet stuff, remember that fruits are good but they are Sweet also. (7) Hypercholesterolemia: Code(s): E78.00 - Pure hypercholesterolemia, unspecified Category: Medical Plan: Avoid fried foods, chicken skin, eggs, butter margarine, pastries and meat. Be it pork or beef they have a lot of cholesterol LDL goal of less than 130 and triglyceride of less than 150 (8) Foot drop, left: Code(s): M21.372 - Foot drop, left foot Category: Medical Plan: Patient uses an AFO brace Plan History of Present Illness The patient is a 59-year-old male presenting for a follow-up visit. The patient has a history of seizure disorder, which has been stable with no recent seizures reported. He is currently on seizure medication, and the levels in the blood are within the therapeutic range. The patient experienced a cerebrovascular accident (CVA) resulting in left foot drop. He uses an ankle-foot orthosis (AFO) brace for support. The patient has obstructive sleep apnea but cannot tolerate CPAP therapy. The patient has hypercholesterolemia with an LDL cholesterol level of 119 mg/dL and triglycerides at 136 mg/dL. The goal is to maintain LDL cholesterol below 130 mg/dL and triglycerides below 150 mg/dL. The patient has gastroesophageal reflux disease (GERD) and pernicious anemia, both of which are being managed. The patient has impaired glucose tolerance with a fasting blood sugar level of 100 mg/dL. He is advised to monitor his diet to manage blood sugar levels. The patient has a history of tubular adenoma of the colon, with the last colonoscopy performed on July 01, 2018. He is reminded to follow up with a laborer prestressed concrete for a repeat colonoscopy. The patient reports knee pain, and an X-ray showed early signs of osteoarthritis. He is advised to stay active and manage his weight to prevent worsening of arthritis symptoms. Health Maintenance - Colonoscopy reminder for follow-up with laborer prestressed concrete - Dietary advice to manage blood sugar levels - Encouragement to maintain physical activity to manage osteoarthritis Social History Review of Systems - Neurological: Denies recent seizures - Musculoskeletal: Reports knee pain Physical Exam Results - Labs: LDL cholesterol 119 mg/dL, triglycerides 136 mg/dL, fasting blood sugar 100 mg/dL, potassium low normal - Imaging: X-ray shows early signs of osteoarthritis Plan The patient will continue with his current seizure medication regimen, as the blood levels are within the therapeutic range. He is advised to follow up with neurology for ongoing management of his seizure disorder. For the cerebrovascular accident with left foot drop, the patient will continue using the ankle-foot orthosis AFO) brace for support. The patient is reminded to follow up with a laborer prestressed concrete for a repeat colonoscopy due to his history of tubular adenoma. Dietary modifications are recommended to manage impaired glucose tolerance, with an emphasis on reducing sugar intake. The patient is encouraged to maintain physical activity and manage his weight to prevent worsening of osteoarthritis symptoms. A reminder is given to monitor cholesterol levels, aiming for an LDL cholesterol below 130 mg/dL and triglycerides below 150 mg/dL. Patient was informed and verbally consented to the use of an ambient scribe for clinic note documentation during this visit. Discussion Notes I discussed with the patient the importance of continuing his seizure medication as the levels are therapeutic and advised a follow-up with neurology. We talked about the need for a repeat colonoscopy due to his history of tubular adenoma, and I emphasized the importance of dietary modifications to manage his impaired glucose tolerance. I also encouraged him to maintain physical activity to manage his osteoarthritis and reminded him to monitor his cholesterol levels. Patient Instructions - Continue taking seizure medication as prescribed. - Follow up with neurology for seizure disorder management. - Use the AFO brace for foot support. - Schedule a colonoscopy with a laborer prestressed concrete. - Monitor diet to manage blood sugar levels. - Stay active and manage weight to prevent worsening of arthritis. - Monitor cholesterol levels, aiming for LDL below 130 mg/dL and triglycerides below 150 mg/dL. Medications: Refilled acetaminophen (Tylenol) 650 mg (2 x 325 mg) PO Q6H PRN 60 tabs 12RF pain
== END 2025-03-10 13:48 | disposition home or self-care (01) ==
LOC: HO.HMCH 12:51
PROVIDERS: PCP Internal Medicine; Visit Provider Internal Medicine
DX: G40.909 Epilepsy, unspecified, not intractable, without status epilepticus (principal); Z86.73 Personal history of transient ischemic attack (TIA), and cerebral infarction without residual deficits; M25.561 Pain in right knee; D12.6 Benign neoplasm of colon, unspecified; K21.9 Gastro-esophageal reflux disease without esophagitis; R73.01 Impaired fasting glucose; E78.00 Pure hypercholesterolemia, unspecified; M21.372 Foot drop, left foot

== ENCOUNTER → 2025-03-10 12:50 | Outpatient (BNVA) | payer MEDICARE, MEDICAID, SELFPAY | PROVIDERS: PCP Internal Medicine; Visit Provider Internal Medicine | DX: G40.909 Epilepsy, unspecified, not intractable, without status epilepticus (principal); Z86.73 Personal history of transient ischemic attack (TIA), and cerebral infarction without residual deficits; M25.561 Pain in right knee; D12.6 Benign neoplasm of colon, unspecified; K21.9 Gastro-esophageal reflux disease without esophagitis; R73.01 Impaired fasting glucose; E78.00 Pure hypercholesterolemia, unspecified; M21.372 Foot drop, left foot | CPT/HCPCS: 99212 ==

== ENCOUNTER 2025-03-18 11:26 | Emergency (ER) | payer MEDICARE, MEDICAID, SELFPAY ==
[2025-03-18] VITALS (7 sets, daily range): BP systolic 120–158; BP diastolic 54–82; PULSE 67–81; RESP 16–18; TEMP 36.1–36.8; O2SAT 96–99; BMI 27.5
--- NOTE | ~2025-03-18 | CT_ITS ---
EXAMINATION: CT CERVICAL SPINE WITHOUT CONTRAST CLINICAL INFORMATION: Fall, head trauma COMPARISON: July 27, 2022 TECHNIQUE: Axial imaging was performed from the base of the skull through T2 without IV contrast. Coronal and sagittal reformatted images were generated from the original axial data set. ALARA: The examination used one or more of the following radiation dose reduction techniques: Automated exposure control, iterative reconstruction, and/or adjustment of mA and/or KV. DLP: 1570 mGY*cm FINDINGS: Again seen is multilevel degenerative disc disease and facet osteoarthritis that has mildly progressed since the prior examination. No fracture lines are evident. Multinodular thyroid goiter is again noted. CT/CT cervical spine wo IV con IMPRESSION: No acute fracture is demonstrated. Mild progression of multilevel degenerative disc disease and facet osteoarthritis. Multinodular thyroid goiter. Electronically signed by: Michel Gonzalez MD 03/18/2025 01:28 PM EDT
--- NOTE | ~2025-03-18 | CT_ITS ---
EXAMINATION: CT HEAD WITHOUT IV CONTRAST HISTORY: fall, +head strike. TECHNIQUE: Unenhanced helical CT of the head was performed per standard departmental protocol. Coronal and sagittal reformats of the head were also evaluated. One or more of the following techniques was used for dose reduction: Automated exposure control, adjustment of the mA and/or kV according to patient size, use of iterative reconstruction technique. DLP: 1080 mGy-cm COMPARISON: Comparison is made with the prior examination dated 07/27/2022. FINDINGS: BRAIN: A ventriculostomy catheter is again noted from a right parietal approach with its tip along the roof of the body of the lateral ventricle. Again seen is marked ventriculomegaly, right greater than left, without significant change from the prior study. There is no mass effect or midline shift. No intra- or extra-axial fluid collections are identified. SINUSES: The visualized paranasal sinuses are clear. The mastoid air cells and middle ear cavities are well pneumatized. ORBITS: The visualized orbits are unremarkable. BONES/SOFT TISSUES: The extracranial soft tissues are unremarkable. The calvarium is intact. No suspicious lytic or sclerotic lesions. CT/CT head/brain wo IV con IMPRESSION: No acute intracranial abnormality. Electronically signed by: Feliz Mccarthy MD 03/18/2025 01:24 PM EDT
--- NOTE | 2025-03-18 11:45 | ED_ITS ---
HPI - General Adult General Chief complaint: Seizure Stated complaint: FALL,MARTINEZ,+CCOLLAR,-LOC,@BASELINE FROM [facility] PER EMS Time Seen by Provider: 03/18/25 11:36 Source: patient, EMS, RN notes reviewed and supervisor offset plate preparation Mode of arrival: EMS Limitations: language barrier History of Present Illness ED Provider: Kathy Shankar PA-C HPI narrative: This is a 59-year-old male, with a past medical history of seizure disorder on phenytoin and phenobarbital, who presents emergency department for evaluation of fall. Patient is coming from [facility] Day Program in [facility] where per staff, patient had a unwitnessed seizure and fell backwards striking the back of his head on the ground. Patient believes that he did lose consciousness and believes that he had a seizure. Patient is not on anticoagulation. Patient is reporting pain in the back of his head. Patient is alert and oriented to person place and situation. MD complaint: Fall Onset (ago): day(s) Location: head and neck Relieving factors: none Exacerbating factors: none Associated symptoms: denies other symptoms Treatments prior to arrival: none Related Data Previous Rx's ?Medication ?Instructions ?Recorded hydrocortisone 2.5 % topical cream 1 appl OH BID-QID P RN hemorrhoids 10/30/20 with perineal applicator #30 grams (Proctosol HC) psyllium husk 0.52 gram capsule 0.52 g PO BEDTIME PRN constipation 07/21/21 (Fiber (psyllium husk)) #30 caps folic acid 1 mg tablet 1 mg PO DAILY #90 tabs 01/03 omeprazole 20 mg capsule,delayed 20 mg PO DAILY 90 day s #90 caps 01/03/22 release Lactobacillus rhamnosus GG 10 1 cap PO BID #14 caps billion cell capsule (Culturelle) ROLLATOR with seat #1 ea 07/22/22 lidocaine 5 % topical patch 1 patch topical DAILY #15 ea 09/23/22 AFO brace #1 ea 01/10/23 phenytoin sodium extended 100 mg 100 mg PO TID 90 days #270 caps 01/10/23 capsule cholecalciferol (vitamin D3) 1,250 1,250 mcg PO QWEEK 12 weeks #12 11/25/23 mcg (50,000 unit) capsule caps cyanocobalamin (vitamin B-12) 1,000 mcg IM Q4W 90 days #4 mL 05/10/24 1,000 mcg/mL injection solution lacosamide 200 mg tablet (Vimpat) 200 mg PO BID 90 day s #180 tabs 09/16/24 diclofenac sodium 1 % topical gel 4 g topical QID #100 grams 11/26/24 (Voltaren Arthritis Pain) rollator #1 ea 11/26/24 phenobarbital 97.2 mg tablet 97.2 mg PO DAILY #90 tabs 02/11/25 acetaminophen 325 mg tablet 650 mg (2 x 325 mg) PO Q6H PRN 03/10/25 (Tylenol) pain #60 tabs Allergies Allergy/AdvReac Type Severity Reaction Status Date / Time No Known Allergies (No Known Allergy Verified 03/18/25 11:40 Allergies*) Review of Systems 2 Review of Systems: Yes all other systems are reviewed and are negative Constitutional: Constitutional: Reports as per [facility] Past Medical History Medical History Oropharyngeal dysphagia Annual physical exam Epilepsy Chronic static encephalopathy Uses walker Seizure Edentulous Cataract Preoperative clearance Aspiration into airway Tubular adenoma of colon Umbilical hernia Mental and behavioral problem History of meningitis Hypercholesterolemia Thyroid nodule Vitamin D deficiency Obstructive sleep apnea History of CVA (cerebrovascular accident) Seizure disorder Surgical History S/P NUCLEAR ENGINEER shunt Hx of colonoscopy History of brain surgery History of lung surgery Family History Family History Father Myocardial infarction Mother Myocardial infarction Maternal Uncle Prostate cancer Brother Prostate cancer Sister No problems noted. Social History Social History Housing: Apartment Alcohol intake: never Patient Tobacco Use Status: Never used Tobacco Smoked in Last 30 Days: No e-Cigarette/Vaping Use: Never Used Second Hand Smoke Exposure: No Use of substances other than those prescribed or required for medical reasons: No Advance Directives: Yes Advance Directives on File: Yes Advance Directives Date on File: 04/13/21 Do you have a plan to hurt others: No Plan service: No Current occupational status: disabled Cognitive needs: Yes Hearing needs: No Vision needs: Yes Physical Exam ED Vital Signs: Vital Signs - 24 hr 03/18/25 11:34 03/18/25 11:37 03/18/25 14:40 Temperature 97.0 F Pulse Rate 73 74 67 Respiratory Rate 18 16 Blood Pressure 127/54 L 127/54 L 127/70 Pulse Oximetry 97 99 Oxygen Delivery Method Room Air Room Air 03/18/25 14:41 03/18/25 14:43 03/18/25 14:46 Temperature 98.2 F Pulse Rate 73 79 70 Respiratory Rate 16 Blood Pressure 128/64 126/59 L 120/66 Pulse Oximetry 96 Oxygen Delivery Method Room Air 03/18/25 16:44 Temperature 98.2 F Pulse Rate 70 Respiratory Rate 16 Blood Pressure 120/66 Pulse Oximetry 96 Oxygen Delivery Method Room Air BMI result Body Mass Index 27.5 Const General: cooperative, comfortable and no acute distress Orientation/consciousness: patient oriented x3 Limitations: no limitations HENMT Head: Yes normal to inspection, Yes normocephalic and Yes atraumatic Ears: hearing grossly normal bilaterally General nose exam: Normal external nose present Face and sinus: Yes normal facial exam Mouth: Normal oral and palatal mucosa present, oropharynx normal and moist mucous membranes Throat: Yes posterior oropharynx normal Eyes General: appearance normal, both eyes and all related structures Eyelids: Yes eyelids normal Conjunctivae: conjunctivae normal Sclerae: sclerae normal Pupils: Equal, round and reactive pupils present EOM: EOMs intact bilaterally Neck Other: No midline spine tenderness on examination. Neck: Yes normal visual inspection, Yes full ROM and Yes no lymphadenopathy Lymphatic: no lymphadenopathy noted Chest Chest palpation & inspection: normal inspection of the chest Resp Effort & Inspection: normal respiratory effort and able to speak in complete sentences Auscultation: clear to auscultation bilaterally, no crackles, no rales, no rhonchi and no wheezes Cardio Rate: regular rate Rhythm: regular rhythm Heart sounds: S1 normal heart sound present and S2 normal heart sound present GI Inspection: Yes normal to inspection Skin General skin exam: no rashes or lesions noted Trauma: no lacerations or abrasions Wounds: no wounds Neuro General: patient oriented x3 and moves all extremities Cranial nerves: Yes Equal, round and reactive pupils present Extrem General: Yes normal to inspection Right upper extremity: normal to inspection Left upper extremity: normal to inspection Right lower extremity: normal to inspection Left lower extremity: normal to inspection Medications Administered Discontinued Medications Generic Name Dose Route Start Last Admin Trade Name Amada PRN Reason Stop Dose Admin Acetaminophen 1,000 mg in 100 mls @ 400 mls/hr 03/18/25 12:00 03/18/25 13:14 Ofirmev IV 03/18/25 12:14 Infused ONCE ONE Infusion Medical Decision Making Medical Decision Making [facility] Narrative: This is a 59-year-old male, with a past medical history of chronic static encephalopathy, seizure disorder, who presents emergency department for evaluation of fall. On arrival, patient is alert and oriented x3. Vital signs within normal limits. He is neurologically intact with no focal deficits. He arrives with cervical collar in place. He reports that he does have a headache, otherwise no other complaints. Patient does have chronic left sided hand contracture from previous stroke. Course: Will obtain labs, EKG, CT head and neck, phenytoin and phenobarbital level. We will also obtain orthostatics. 1400 - CT neck revealing no acute bony abnormalities from the fall. Remove cervical collar. Given unclear etiology from fallen patient has a poor historian, we will repeat troponin. Patient remained stable and at baseline. We will continue to monitor. Labs revealing no acute findings. He does have normocytic anemia with an H&H of 13.6/41.5. Chemistry revealing no significant electrolyte derangement. First troponin negative. Second troponin negative. Patient has been monitored for multiple hours without any return of seizures. It is unclear if this was a true seizure. Discussed overall workup, workup is reassuring. Discussed following up with Dr. Trinh, as phenytoin is just above normal limits. Given that he is alert and oriented, feeling well, no current complaints, patient can be discharged home, he lives home with his sister. Given strict return precautions. He understands and agrees with plan. Patient stable for discharge Differential Diagnosis Differential Diagnoses: The differential diagnosis associated with the presentation includes Fall, head strike, ICH, seizure, metabolic derangement Lab Data [facility] Lab Attestation statement: I reviewed the patient's lab results. See [facility] 03/18/25 12:33 03/18/25 12:33 Labs: Lab Results 03/18/25 03/18/25 Range/Units 12:33 14:26 WBC 6.0 (4.8-10.8) X10*3/uL RBC 4.85 (4.60-5.80) X10*6/uL Hgb 13.6 L (14.0-18.0) g/dl Hct 41.5 L (42.0-52.0) % MCV 85.6 (80.0-98.0) fL MCH 28.0 (27.0-33.0) pg MCHC 32.8 (31.0-36.0) g/dl RDW 14.1 (11.0-16.0) % Plt Count 195 (160-400) X10*3/uL MPV 10.7 (9.4-12.4) fL Immature Gran % (Auto) 0.2 (0.0-0.4) % Neut % (Auto) 61.6 (45-73) % Lymph % (Auto) 26.6 (20-40) % Holmes % (Auto) 8.9 (2-11) % Eos % (Auto) 2.2 (0-4) % Baso % (Auto) 0.5 (0-2) % Lymph # (Auto) 1.6 (1.2-4.9) X10*3/uL Holmes # (Auto) 0.5 (0.1-1.2) X10*3/uL Eos # (Auto) 0.1 (0.0-0.4) X10*3/uL Baso # (Auto) 0.0 (0.0-0.2) X10*3/uL Abs Immat Gran (auto) 0.01 (0.00-0.03) X10*3/uL Absolute Neuts (auto) 3.7 (2.0-8.3) x10*3/uL Absolute Nucleated RBC 0.000 (0.0-0.012) X10*3/uL Nucleated RBC % (auto) 0.0 (0.0-0.2) /100WBC Hold Blue Top SEE NOTE Sodium 144 (135-145) mmol/L Potassium 3.7 (3.3-5.1) mmol/L Chloride 108 (96-108) mmol/L Carbon Dioxide 28 (22-29) mmol/L Anion Gap 12 (12-20) BUN 16 (9-16) mg/dL Creatinine 0.70 (0.5-1.4) mg/dL Estim Creat Clear Calc 106.3 Estimated GFR > 60 Random Glucose 94 (60-115) mg/dL Lactic Acid 1.4 (0.5-2.0) mmol/L Calcium 9.0 (8.4-10.2) mg/dL Magnesium 2.2 (1.6-2.6) mg/dL Total Bilirubin 0.2 (0.0-1.0) mg/dL Direct Bilirubin < 0.2 (0.0-0.5) mg/dL AST 20 (5-37) U/L ALT 12 (0-40) U/L Alkaline Phosphatase 143 H (39-117) U/L Total Creatine Kinase 64 (38-174) U/L Troponin I High Sens < 2.7 < 2.7 (<3.5-35.0) ng/L Total Protein 7.6 (6.5-8.0) g/dL Albumin 4.3 (3.5-5.0) g/dL Phenytoin 23.4 H (10.0-20.0) ug/mL Phenobarbital 22.0 (10.0-40.0) mcg/mL Radiology Impression Discussion of test interpretation with radiology: I have reviewed the radiologist's reading. External Record Review External record reviewed: Inpatient record, Office record, Outpatient record, Prior outpatient labs, Prior outpatient radiology, Primary care record and Outside ED record Discharge Plan Discharge Clinical Impression: Fall Patient Disposition: Home, Self-Care Instructions: Fall Prevention (ED) Additional Instructions: You were seen in the emergency department after a fall. Your overall workup today was reassuring. Your phenytoin level was 23.4. This is just above the normal range therefore I want you to follow-up with your provider that prescribes his to you as this may need to be adjusted. If any new or worsening symptoms occur including but not limited to severe chest pain, shortness of breath, changes in mentation, please seek emergent care. Prescriptions: No Action (DME) ROLLATOR with seat See Rx Instructions .Route .MEDSUPPLY Qty: 1 0RF Rx Instructions: As directed cholecalciferol (vitamin D3) 1,250 mcg (50,000 unit) capsule 1,250 mcg PO QWEEK 84 Days Qty: 12 3RF cyanocobalamin (vitamin B-12) 1,000 mcg/mL solution 1,000 mcg IM Q4W 90 Days Qty: 4 5RF Vimpat 200 mg tablet 200 mg PO BID 90 Days Qty: 180 1RF phenobarbital 97.2 mg tablet 97.2 mg PO DAILY Qty: 90 0RF hydrocortisone [Proctosol HC] 2.5 % cream with perineal applicator 1 appl OH BID-QID PRN (Reason: hemorrhoids) Qty: 30 0RF folic acid 1 mg tablet 1 mg PO DAILY Qty: 90 3RF omeprazole 20 mg capsule,delayed release(DR/EC) 20 mg PO DAILY 90 Days Qty: 90 2RF (DME) AFO brace See Rx Instructions .Route .MEDSUPPLY Qty: 1 0RF Rx Instructions: As directed phenytoin sodium extended 100 mg capsule 100 mg PO TID 90 Days Qty: 270 3RF psyllium husk [Fiber (psyllium husk)] 0.52 gram capsule 0.52 g PO BEDTIME PRN (Reason: constipation) Qty: 30 3RF Culturelle 10 billion cell capsule 1 cap PO BID Qty: 14 0RF lidocaine 5 % adhesive patch,medicated 1 patch topical DAILY Qty: 15 0RF Rx Instructions: leave on most painful area for up to 12 hrs (DME) rollator See Rx Instructions .Route .MEDSUPPLY Qty: 1 0RF Rx Instructions: As directed diclofenac sodium [Voltaren Arthritis Pain] 1 % gel 4 g topical QID Qty: 100 0RF Rx Instructions: apply to single knee, ankle, foot; for foot includes sole/toes/top of foot acetaminophen [Tylenol] 325 mg tablet 650 mg PO Q6H PRN (Reason: pain) Qty: 60 12RF Interventions: ED Discharge Assessment Last Done: 03/18/25 16:44 Discharge Date/Time: 03/18/25 16:44 Print Language: Yakut
--- NOTE | 2025-03-18 12:00 | ECG_ITS ---
Test Reason : FALL Blood Pressure : */* mmHG Vent. Rate : 76 BPM Atrial Rate : 76 BPM P-R Int : 146 ms QRS Dur : 78 ms QT Int : 400 ms P-R-T Axes : 68 70 54 degrees QTcB Int : 450 ms Normal sinus rhythm Nonspecific T wave abnormality Prolonged QT Abnormal ECG When compared with ECG of 16-May-2021 16:57, No significant changes seen Referred By: Kathy Shankar Electronically Signed By: VIVIAN PINTO
[2025-03-18 12:39] LABS: MANUAL DIFF FLAG NO
[2025-03-18 12:45] LABS: Hematocrit 41.5 % (42.0-52.0); Hemoglobin 13.6 g/dl (14.0-18.0); Imm Gran Abs Auto 0.01 X10*3/uL (0.00-0.03); Imm Gran Pct Auto 0.2 % (0.0-0.4); Lymphocytes Absolute Auto 1.6 X10*3/uL (1.2-4.9); Mean Corpuscular HGB Conc 32.8 g/dl (31.0-36.0); Mean Corpuscular Hemoglobin 28.0 pg (27.0-33.0); Mean Corpuscular Volume 85.6 fL (80.0-98.0); NRBC Abs Auto 0.000 X10*3/uL (0.0-0.012); NRBC Pct Auto 0.0 /100WBC (0.0-0.2); Platelet Count 195 X10*3/uL (160-400); Red Blood Count 4.85 X10*6/uL (4.60-5.80); White Blood Count 6.0 X10*3/uL (4.8-10.8)
[2025-03-18 13:01] LABS: Alanine Aminotransferase 12 U/L (0-40); Albumin Level 4.3 g/dL (3.5-5.0); Alkaline Phosphatase 143 U/L (39-117); Anion Gap 12 (12-20); Aspartate Amino Transferase 20 U/L (5-37); Blood Urea Nitrogen 16 mg/dL (9-16); Calcium 9.0 mg/dL (8.4-10.2); Carbon Dioxide 28 mmol/L (22-29); Chloride 108 mmol/L (96-108); Creatinine Clr Calc Pharmacy 106.3; Estimated Glomerular Filt Rate > 60; Magnesium 2.2 mg/dL (1.6-2.6); Potassium 3.7 mmol/L (3.3-5.1); Sodium 144 mmol/L (135-145); Total Protein 7.6 g/dL (6.5-8.0)
[2025-03-18 13:10] LABS: Troponin-I High Sensitivity < 2.7 ng/L (<3.5-35.0)
[2025-03-18 15:05] LABS: Troponin-I High Sensitivity < 2.7 ng/L (<3.5-35.0)
== END 2025-03-18 16:44 | disposition home or self-care (01) ==
PROVIDERS: Physician Assistant Medical; Emergency Provider Emergency Medicine; PCP Internal Medicine
DX: R51.9 Headache, unspecified (principal); S09.90XA Unspecified injury of head, initial encounter; W18.30XA Fall on same level, unspecified, initial encounter; Y93.9 Activity, unspecified; Y92.9 Unspecified place or not applicable; Y99.9 Unspecified external cause status
CPT/HCPCS: 36415; 70450; 72125; 80048; 80076; 80184; 80185; 82550; 83605; 83735; 84484; 85025; 93005; 96365; 99284; 99285; J0131

== ENCOUNTER → 2025-03-18 12:00 | Outpatient (BNV) | payer MEDICARE, MEDICAID, SELFPAY | PROVIDERS: Emergency Provider Emergency Medicine; PCP Internal Medicine; Visit Provider Internal Medicine | DX: R94.31 Abnormal electrocardiogram [ECG] [EKG] (principal); W19.XXXA Unspecified fall, initial encounter | CPT/HCPCS: 93010 ==

== ENCOUNTER → 2025-03-18 12:00 | Outpatient (BNV) | payer MEDICARE, MEDICAID, SELFPAY | PROVIDERS: Emergency Provider Emergency Medicine; PCP Internal Medicine; Visit Provider Radiology Diagnostic Radiology | DX: S09.90XA Unspecified injury of head, initial encounter (principal) | CPT/HCPCS: 70450 ==

== ENCOUNTER 2025-03-28 07:40 | Outpatient (AMB) | payer MEDICARE, MEDICAID, SELFPAY ==
[2025-03-28 07:43] VITALS: BP 126/70; PULSE 64; TEMP 36.2; O2SAT 98; BMI 39.8
--- NOTE | 2025-03-28 07:43 | A.OFFPC_ITS ---
Vital Signs 03/28/25 07:43 Height 5 ft 4 in Weight 232 lb 2.348 oz BMI 39.8 BP 126/70 Blood Pressure Location Lt brachial Position Sitting Pulse 64 Pulse Source Pulse Oximeter Temp 97.1 F Temp Source Temporal Artery Scan Pulse Oximetry (%) 98 Oxygen Delivery Method Room Air Intake Visit Reasons: [facility] 03/18 Intake Note: Patient is here to follow-up after a visit the emergency department at [facility] on 03/18/25 Dressmaker Helper Required: Yes Dressmaker Helper Name: Corinne ([id number]) Information Interpreted: non-clinical & clinical Customer Training Specialist: Present Accompanied by: Sister Allergies No Known Allergies (No Known Allergies*) Allergy (Verified 03/28/25 07:43) Tobacco use date assessed: 03/10/25 Dental Screening Dental Screen Date: 03/10/25 HPI HPI Comments History of Present Illness Details 59 y/o Male patient who presents to the clinic today for EDF. He was admitted at [facility] on 03/18 for an evaluation after Fall at [facility]. Pt had unwitnessed seizure and fell Backwards striking head. CT head and Neck negative. [facility] Medical History Oropharyngeal dysphagia Annual physical exam Epilepsy Chronic static encephalopathy Uses walker Seizure Edentulous Cataract Preoperative clearance Aspiration into airway Tubular adenoma of colon Umbilical hernia Mental and behavioral problem History of meningitis Hypercholesterolemia Thyroid nodule Vitamin D deficiency Obstructive sleep apnea History of CVA (cerebrovascular accident) Seizure disorder Surgical History S/P IRONER OR PRESSER shunt Hx of colonoscopy History of brain surgery History of lung surgery Family History Father Myocardial infarction Mother Myocardial infarction Maternal Uncle Prostate cancer Brother Prostate cancer Sister No problems noted. Social History Housing: Apartment Alcohol intake: never Patient Tobacco Use Status: Never used Tobacco Tobacco use type: Cigarette e-Cigarette/Vaping Use: Never Used Second Hand Smoke Exposure: No Advance Directives Date on File: 04/13/21 service: No Current occupational status: disabled Cognitive needs: Yes Hearing needs: No Vision needs: Yes Questionnaire PHQ-9 Over the last 2 weeks, how often have you been bothered by any of the following problems? 1. Little interest or pleasure in doing things: not at all 2. Feeling down, depressed, or hopeless: not at all 3. Trouble falling or staying asleep, or sleeping too much: not at all 4. Feeling tired or having little energy: not at all 5. Poor appetite or overeating: not at all 6. Feeling bad about yourself - or that you are a failure or have let yourself or your family down: not at all 7. Trouble concentrating on things, such as reading the newspaper or watching television: not at all 8. Moving or speaking so slowly that other people could have noticed. Or the opposite - being so fidgety or restless that you have been moving around a lot more than usual: not at all 9. Thoughts that you would be better off or of hurting yourself in some way: not at all Total score: 0 Source: Developed by Drs. Feliz Cyr, Kathryn Stratton, Stefan Denise and colleagues, with an educational oliver from [employer] Thrive Questionnaire Date Thrive assessed: 03/10/25 BRENDA-7 AMB Questionnaire BRENDA-7 Date BRENDA - 7 assessed: 03/10/25 Source: Developed by Drs. Feliz Cyr, Kathryn Stratton, Stefan Denise and colleagues, with an educational oliver from [employer] Review of Systems Const All systems reviewed & are unremarkable except as noted in HPI and below Physical exam (Primary Care) Vital Signs: Last Vital Signs Temp 97.1 F 03/28/25 07:43 Pulse 64 03/28/25 07:43 BP 126/70 03/28/25 07:43 Pulse Ox 98 03/28/25 07:43 Oxygen Delivery Method Room Air 03/28/25 07:43 BMI result Body Mass Index 39.8 Tobacco/Smoking Status: Tobacco use Status Tobacco use date assessed 03/10/25 03/28/25 07:44 Patient Tobacco Use Status Never used Tobacco 03/28/25 07:44 Tobacco use type Cigarette 03/28/25 07:44 e-Cigarette/Vaping Use Never Used 03/28/25 07:44 PHQ-9: PHQ-9 Score PHQ-9: Total score 0 03/28/25 08:03 Thrive Assessment: Date of Thrive Assessment Date Thrive assessed 03/10/25 03/28/25 07:44 Const General: no acute distress Resp Effort & Inspection: normal respiratory effort Auscultation: clear to auscultation bilaterally Cardio Heart sounds: S1 normal heart sound present and S2 normal heart sound present Coding Level of Care Code Est Pt Level 4 (93384) Diagnoses Fall, initial encounter W19.XXXA Encounter type: initial encounter Time Spent (min) 20 Assessment & Plan Assessment & Plan (1) Fall: Code(s): W19.XXXA - Unspecified fall, initial encounter Category: Medical Qualifiers: Encounter type: initial encounter Qualified Code(s): W19.XXXA - Unspecified fall, initial encounter Plan: No concerns today. Stable.
== END 2025-03-28 09:30 | disposition home or self-care (01) ==
LOC: HO.HMCH 07:40
PROVIDERS: PCP Internal Medicine; Visit Provider Nurse Practitioner Family
DX: G40.89 Other seizures (principal); W19.XXXA Unspecified fall, initial encounter

== ENCOUNTER → 2025-03-28 07:40 | Outpatient (BNVA) | payer MEDICARE, MEDICAID, SELFPAY | PROVIDERS: PCP Internal Medicine; Visit Provider Nurse Practitioner Family | DX: Z91.81 History of falling (principal) | CPT/HCPCS: 99212 ==

== ENCOUNTER 2025-04-07 12:39 | Outpatient (AMB) | payer MEDICARE, MEDICAID, SELFPAY ==
[2025-04-07 12:50] VITALS: BP 124/68
--- NOTE | 2025-04-07 12:50 | AM.OFFVISNUR ---
Vital Signs 04/07/25 12:50 BP 124/68 Blood Pressure Location Lt brachial Position Sitting Intake Visit Reasons: B12 Shot Allergies No Known Allergies (No Known Allergies*) Allergy (Verified 03/28/25 07:43) Office Meds cyanocobalamin (vitamin B-12) 1,000 mcg/mL injection solution Performing Provider: Veronique Hare MD [facility] Administered by: Erica Carlton LPN on 04/07/25 12:51 Dose Route Admin Location Dispensed Lot Number Expiration Date [facility] Dining Room Host 1,000 mcg IM left deltoid 1 mL [id number] 08/13/25 83824-693-32 [employer] Total Dispensed Waste 1 mL 0 % Assessment & Plan Assessment & Plan Orders: Orders AMB Vitamin B12 Injection Patient Supplied Today E53.8 - Deficiency of other specified B group vitamins Coding
== END 2025-04-07 12:50 | disposition home or self-care (01) ==
LOC: HO.HMCH 12:40
PROVIDERS: PCP Internal Medicine; Visit Provider Internal Medicine
DX: E53.8 Deficiency of other specified B group vitamins (principal)

== ENCOUNTER → 2025-04-07 12:39 | Outpatient (BNVA) | payer MEDICARE, MEDICAID, SELFPAY | PROVIDERS: PCP Internal Medicine; Visit Provider Internal Medicine | DX: E53.8 Deficiency of other specified B group vitamins (principal) | CPT/HCPCS: 96372; J3420 ==

== ENCOUNTER 2025-05-09 13:08 | Outpatient (AMB) | payer MEDICARE, MEDICAID, SELFPAY ==
--- NOTE | 2025-05-09 13:11 | AM.OFFVISNUR ---
Intake Visit Reasons: B-12 Allergies No Known Allergies (No Known Allergies*) Allergy (Verified 03/28/25 07:43) Office Meds cyanocobalamin (vitamin B-12) 1,000 mcg/mL injection solution Performing Provider: Veronique Hare MD [facility] Administered by: Adilene Alfaro RN on 05/09/25 13:11 Dose Route Admin Location Dispensed Lot Number Expiration Date [facility] Property Insurance Agent 1,000 mcg IM 1 mL [id number] 07/13/26 41586-589-27 [employer] Total Dispensed Waste 1 mL 0 % Assessment & Plan Assessment & Plan Orders: Orders AMB Vitamin B12 Injection Patient Supplied Today E53.8 - Deficiency of other specified B group vitamins Coding
== END 2025-05-09 13:19 | disposition home or self-care (01) ==
LOC: HO.HMCH 13:08
PROVIDERS: PCP Internal Medicine; Visit Provider Internal Medicine
DX: E53.8 Deficiency of other specified B group vitamins (principal)

== ENCOUNTER → 2025-05-09 13:08 | Outpatient (BNVA) | payer MEDICARE, MEDICAID, SELFPAY | PROVIDERS: PCP Internal Medicine; Visit Provider Internal Medicine | DX: E53.8 Deficiency of other specified B group vitamins (principal) | CPT/HCPCS: 96372; J3420 ==

== ENCOUNTER 2025-06-04 09:48 | Outpatient (AMB) | payer MEDICARE, MEDICAID, SELFPAY ==
--- NOTE | 2025-06-04 10:18 | MHC.PC.OV ---
Vital Signs 06/04/25 10:20 Height 5 ft 4 in Weight 226 lb BMI 38.8 BP 130/70 Blood Pressure Location Lt brachial Position Sitting Pulse 69 Pulse Source Pulse Oximeter Temp 97.1 F Temp Source Temporal Artery Scan Pulse Oximetry (%) 96 Oxygen Delivery Method Room Air Intake Visit Reasons: headaches Intake Note: Patient complains of Headaches. Senior Test Analyst Required: Yes Senior Test Analyst Language: Massage Therapy Instructor Name: Wallace [id number] Information Interpreted: non-clinical & clinical Wood Flour Miller: Present Accompanied by: Sister Allergies No Known Allergies (No Known Allergies*) Allergy (Verified 06/04/25 10:20) Medication List - Last Reconciled 06/04/25 by Kaai Jolly MD acetaminophen (Tylenol) 650 mg (2 x 325 mg) PO Q6H PRN [AFO brace As directed] cholecalciferol (vitamin D3) 1,250 mcg PO QWEEK 12 weeks cyanocobalamin (vitamin B-12) 1,000 mcg IM Q4W 90 days diclofenac sodium 1% (Voltaren Arthritis Pain) 4 grams topical QID folic acid 1 mg PO DAILY hydrocortisone 2.5% (Proctosol HC) 1 appl ND BID-QID PRN lacosamide (Vimpat) 200 mg PO BID 90 days Lactobacillus rhamnosus GG (Culturelle) 1 cap PO BID lidocaine 5% 1 patch topical DAILY omeprazole 20 mg PO DAILY 90 days phenobarbital 97.2 mg PO DAILY phenytoin sodium extended 100 mg PO TID 90 days psyllium husk (Fiber (psyllium husk)) 0.52 grams PO BEDTIME PRN [rollator As directed] [ROLLATOR with seat As directed] Tobacco use date assessed: 06/04/25 Dental Screening Dental Screen Date: 03/10/25 HPI HPI Comments History of Present Illness Details The patient is a 59-year-old male presenting with a recent seizure and ongoing headache following head trauma. The seizure occurred at an elderly center where the patient spends time regularly. During the seizure, the patient hit his head, leading to head trauma. He was evaluated at [facility], where initial assessments indicated no immediate concerns. Since the incident, the patient has been experiencing persistent headaches, which have become the primary concern. The headaches have not been alleviated by Tylenol, which was initially prescribed for knee pain. The patient has not experienced any additional seizures since the initial event. The patient has follow-up appointment with neurology in 08/2025. He has been on long-term medication, including phenobarbital and phenytoin, for seizure management. [facility] Medical History Oropharyngeal dysphagia Annual physical exam Epilepsy Chronic static encephalopathy Uses walker Seizure Edentulous Cataract Preoperative clearance Aspiration into airway Tubular adenoma of colon Umbilical hernia Mental and behavioral problem History of meningitis Hypercholesterolemia Thyroid nodule Vitamin D deficiency Obstructive sleep apnea History of CVA (cerebrovascular accident) Seizure disorder Surgical History S/P SITE MANAGER shunt Hx of colonoscopy History of brain surgery History of lung surgery Family History Father Myocardial infarction Mother Myocardial infarction Maternal Uncle Prostate cancer Brother Prostate cancer Sister No problems noted. Social History Housing: Apartment Alcohol intake: never Patient Tobacco Use Status: Never used Tobacco Tobacco use type: Cigarette e-Cigarette/Vaping Use: Never Used Second Hand Smoke Exposure: No Advance Directives Date on File: 04/13/21 service: No Current occupational status: disabled Cognitive needs: Yes (Walker) Hearing needs: No Vision needs: Yes (Glasses) Questionnaire Thrive Questionnaire Date Thrive assessed: 03/10/25 BRENDA-7 AMB Questionnaire BRENDA-7 Date BRENDA - 7 assessed: 03/10/25 Source: Developed by Drs. Feliz Cyr, Kathryn Stratton, Stefan Denise and colleagues, with an educational oliver from [employer]. Review of Systems Const Details: Not done Physical exam (Primary Care) Vital Signs: Last Vital Signs Temp 97.1 F 06/04/25 10:20 Pulse 69 06/04/25 10:20 BP 130/70 06/04/25 10:20 Pulse Ox 96 06/04/25 10:20 Oxygen Delivery Method Room Air 06/04/25 10:20 BMI result Body Mass Index 38.8 Tobacco/Smoking Status: Tobacco use Status Tobacco use date assessed 06/04/25 06/04/25 10:23 Patient Tobacco Use Status Never used Tobacco 06/04/25 10:23 Tobacco use type Cigarette 10/22/25 10:23 e-Cigarette/Vaping Use Never Used 06/04/25 10:23 Thrive Assessment: Date of Thrive Assessment Date Thrive assessed 03/10/25 06/04/25 10:23 Const Other: Pertinent findings are in BOLD GENERAL APPEARANCE NAD, activity normal for age, well developed/ well nourished, no cyanosis, pallor, or diaphoresis. EYES lids/conjunctiva normal. EARS/NOSE/THROAT Mucous membranes moist, nares normal, lips/teeth normal uvula midline without oral pharyngeal erythema, exudate or swelling TMs normal bilaterally. No lymphangitis/lymphedema. HEAD/NECK normocephalic atraumatic, no facial trauma, neck is supple. RESPIRATORY respiratory effort normal, speaks in full sentences, no tripod position, no accessory muscle use. Lungs clear to auscultation without rhonchi, wheezes, rales CARDIAC Regular rate and rhythm, no edema. ABDOMINAL Soft, ND/NT. No evidence of fluid wave. No pulsatile masses on exam, rebound tenderness, Brannon sign or pain over Mcburney's point. MUSCLES/EXTREMITIES No abnormal range of motion, no swelling. SKIN Warm, pink and dry. No rashes, dermatoses, petechiae or lesions. NEUROLOGICAL Speech is clear and appropriate. Normal level of consciousness. Gait and coordination are normal. 2/5 weakness in LUE. 4/5 weakness in LLE (not new) PSYCH Normal mood and affect. Judgement/competence is appropriate Coding Level of Care Code Est Pt Level 3 (86568) Diagnoses Acute post-traumatic headache, not intractable G44.319 Headache type: post-traumatic Headache chronicity pattern: acute headache Intractability: not intractable Time Spent (min) 20 Assessment & Plan Assessment & Plan (1) Headache: Code(s): R51.9 - Headache, unspecified Category: Medical Qualifiers: Headache type: post-traumatic Headache chronicity pattern: acute headache Intractability: not intractable Qualified Code(s): G44.319 - Acute post-traumatic headache, not intractable Plan: Continue Tylenol. Ibuprofen PRN. F-U with neurology scheduled in 08/2024. CT scan to rule out bleeding since the patient had a head trauma 1 week ago. Plan I discussed with the patient the importance of repeating the CT scan to rule out any intracranial bleeding due to the persistent headache following head trauma. We also talked about the option of using ibuprofen for pain management if Tylenol is not effective. The patient was advised to follow up with his neurologist in August for further management of his seizure disorder. Orders: Orders CT head/brain wo IV con Today R51.9 - Headache, unspecified Medications: New ibuprofen 200 mg PO Q6H PRN 20 tabs 0RF pain Refilled cyanocobalamin (vitamin B-12) 1,000 mcg IM Q4W 4 mL 5RF 90 days folic acid 1 mg PO DAILY 90 tabs 3RF hydrocortisone 2.5% (Proctosol HC) 1 appl ND BID-QID PRN 30 grams 0RF hemorrhoids R19.7 - Diarrhea, unspecified lacosamide (Vimpat) 200 mg PO BID 180 tabs 1RF 90 days lidocaine 5% leave on most painful area for up to 12 hrs 1 patch topical DAILY 15 ea 0RF S86.911A - Strain of unspecified muscle(s) and tendon(s) at lower leg level, right leg, initial encounter omeprazole 20 mg PO DAILY 90 caps 2RF 90 days K21.9 - Gastro-esophageal reflux disease without esophagitis phenytoin sodium extended 100 mg PO TID 270 caps 3RF 90 days M21.372 - Foot drop, left foot psyllium husk (Fiber (psyllium husk)) 0.52 grams PO BEDTIME PRN 30 caps 3RF constipation R15.9 - Full incontinence of feces cholecalciferol (vitamin D3) 1,250 mcg PO QWEEK 12 caps 3RF 12 weeks Lactobacillus rhamnosus GG (Culturelle) 1 cap PO BID 14 caps 0RF K52.9 - Noninfective gastroenteritis and colitis, unspecified phenobarbital 97.2 mg PO DAILY 90 tabs 0RF Z86.73 - Personal history of transient ischemic attack (TIA), and cerebral infarction without residual deficits
[2025-06-04 10:20] VITALS: BP 130/70; PULSE 69; TEMP 36.2; O2SAT 96; BMI 38.8
== END 2025-06-04 12:22 | disposition home or self-care (01) ==
LOC: HO.HMCH 09:48
PROVIDERS: PCP Internal Medicine; Visit Provider Internal Medicine
DX: G44.319 Acute post-traumatic headache, not intractable (principal)

== ENCOUNTER → 2025-06-04 09:48 | Outpatient (BNVA) | payer MEDICARE, MEDICAID, SELFPAY | PROVIDERS: PCP Internal Medicine; Visit Provider Internal Medicine | DX: G44.319 Acute post-traumatic headache, not intractable (principal); S86.911A Strain of unspecified muscle(s) and tendon(s) at lower leg level, right leg, initial encounter; K21.9 Gastro-esophageal reflux disease without esophagitis; M21.372 Foot drop, left foot; R15.9 Full incontinence of feces; K52.9 Noninfective gastroenteritis and colitis, unspecified; X58.XXXA Exposure to other specified factors, initial encounter; Y93.9 Activity, unspecified; Y92.9 Unspecified place or not applicable; Y99.9 Unspecified external cause status; Z86.73 Personal history of transient ischemic attack (TIA), and cerebral infarction without residual deficits | CPT/HCPCS: 99212 ==

== ENCOUNTER 2025-06-07 08:25 | Outpatient (REF) | payer MEDICARE, MEDICAID, SELFPAY ==
--- NOTE | ~2025-06-07 | CT_ITS ---
EXAMINATION: CT HEAD WITHOUT CONTRAST CLINICAL INFORMATION: Headache COMPARISON: CT brain 03/18/2025 TECHNIQUE: Contiguous axial imaging was performed from the skull base to vertex without intravenous administration of contrast. This CT examination was performed using dose optimization techniques as appropriate, variously including the following: *Automated exposure control *Adjustment of mA and/or kV according to patient size (this includes techniques or standardized protocols for targeted exams where dose is matched to indication/reason for exam; i.e. extremities or head) *Use of iterative reconstruction technique FINDINGS: There is significantly marked dilation of lateral ventricles asymmetrically right is larger than the left. There is a ventriculoperitoneal shunt catheter exits through the right occipital lobe and its tip along the roof of right lateral ventricle. The size of the ventricles are seen. The third ventricle is dilated but unchanged. The fourth ventricle is normal caliber suggestive of aqueductal narrowing. There is no acute intra-axial, extra-axial bleed, masses or midline shift. There is no acute infarction evolution. No abnormality seen in the posterior fossa. There is no calvarial abnormality. No scalp soft tissue abnormality seen. CT/CT head/brain wo IV con IMPRESSION: No acute intracranial process seen. 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 Electronically signed by: Bandar Story MD 06/09/2025 07:38 AM EDT
== END 2025-06-07 08:26 | disposition home or self-care (01) ==
LOC: HO.CT 08:25
PROVIDERS: PCP Internal Medicine; Visit Provider Internal Medicine
DX: R51.9 Headache, unspecified (principal)
CPT/HCPCS: 70450

== ENCOUNTER → 2025-06-07 08:27 | Outpatient (BNV) | payer MEDICARE, MEDICAID, SELFPAY | PROVIDERS: PCP Internal Medicine; Visit Provider Radiology Diagnostic Radiology | DX: G93.89 Other specified disorders of brain (principal); Z98.2 Presence of cerebrospinal fluid drainage device | CPT/HCPCS: 70450 ==

== ENCOUNTER 2025-06-09 14:01 | Outpatient (AMB) | payer MEDICARE, MEDICAID, SELFPAY ==
--- NOTE | 2025-06-09 14:13 | AM.OFFVISNUR ---
Intake Visit Reasons: B12 Shot Allergies No Known Allergies (No Known Allergies*) Allergy (Verified 06/04/25 10:20) Office Meds cyanocobalamin (vitamin B-12) 1,000 mcg/mL injection solution Performing Provider: Veronique Hare MD [facility] Administered by: Linda iMshra RN on 06/09/25 14:13 Dose Route Admin Location Dispensed Lot Number Expiration Date [facility] Tool Polishing Machine Operator 1,000 mcg IM left deltoid 1 mL [id number] 06/12/26 30703-519-15 [employer] Total Dispensed Waste 1 mL 0 % Assessment & Plan Assessment & Plan Orders: Orders AMB Vitamin B12 Injection Patient Supplied Today E53.8 - Deficiency of other specified B group vitamins Coding
== END 2025-06-09 14:16 | disposition home or self-care (01) ==
LOC: HO.HMCH 14:02
PROVIDERS: PCP Internal Medicine; Visit Provider Internal Medicine
DX: E53.8 Deficiency of other specified B group vitamins (principal)

== ENCOUNTER → 2025-06-09 14:01 | Outpatient (BNVA) | payer MEDICARE, MEDICAID, SELFPAY | PROVIDERS: PCP Internal Medicine; Visit Provider Internal Medicine | DX: E53.8 Deficiency of other specified B group vitamins (principal) | CPT/HCPCS: 96372; J3420 ==

== ENCOUNTER 2025-06-13 11:31 | Outpatient (AMB) | payer MEDICARE, MEDICAID, SELFPAY ==
--- NOTE | 2025-06-13 11:36 | MHC.OFFVIS ---
Vital Signs 06/13/25 11:37 Height 5 ft 4 in Weight 226 lb BMI 38.8 BP 150/60 H Blood Pressure Location Rt brachial Position Sitting Pulse 68 Pulse Source Pulse Oximeter Pulse Oximetry (%) 100 Oxygen Delivery Method Room Air Intake Visit Reasons: Colonoscopy Screening, Tubular adenoma of colon Intake Note: New pt for recall colo/egd screening. Hx of GERD. CC; Pt denies any GI sx or concerns at this time. Confirms taking PPI and is doing well with this at this time. Cable Television Access Coordinator Required: Yes Cable Television Access Coordinator Services: Cable Television Access Coordinator Present Cable Television Access Coordinator Name: William [id number] + Information Interpreted: clinical only Accompanied by: Family/Other Allergies No Known Allergies (No Known Allergies*) Allergy (Verified 06/04/25 10:20) HPI HPI Colonoscopy Screening, Tubular adenoma of colon: Details: 59 year old? male here today for pre colonoscopy screening.? Patient was sent to us by his PCP.? Patient had tubular adenoma: colonoscopy in 2018. Patient denies any gastrointestinal symptoms in the past or at present.? Takes omeprazole for reflux as needed and it works. Denies any family history of CRC.? Denies history of difficulty with sedation or anesthesia in the past.? Negative for history of sleep apnea.? Denies any history of cardiac, renal, pulmonary, or hepatic disease.?? No history of infectious? diseases like hepatitis A, B, C, HIV or tuberculosis.? Patient is not on any anticoagulation [facility] Medical History Oropharyngeal dysphagia Annual physical exam Epilepsy Chronic static encephalopathy Uses walker Seizure Edentulous Cataract Preoperative clearance Aspiration into airway Tubular adenoma of colon Umbilical hernia Mental and behavioral problem History of meningitis Hypercholesterolemia Thyroid nodule Vitamin D deficiency Obstructive sleep apnea History of CVA (cerebrovascular accident) Seizure disorder Surgical History S/P INSPECTOR FIREARMS shunt Hx of colonoscopy History of brain surgery History of lung surgery Family History Father Myocardial infarction Mother Myocardial infarction Maternal Uncle Prostate cancer Brother Prostate cancer Sister No problems noted. Social History Housing: Apartment Alcohol intake: never Patient Tobacco Use Status: Never used Tobacco Tobacco use type: Cigarette e-Cigarette/Vaping Use: Never Used Second Hand Smoke Exposure: No Advance Directives Date on File: 04/13/21 service: No Current occupational status: disabled Cognitive needs: Yes (Walker) Hearing needs: No Vision needs: Yes (Glasses) Review of Systems Const Denies weight gain and Denies weight loss ENT Reports no additional complaints, Denies dysphagia and Denies odynophagia Card Reports no additional complaints Resp Reports no additional complaints GI Denies abdominal pain, Denies belching, Denies melena, Denies bloating, Denies change in bowel habits, Denies dysphagia, Denies excessive flatus, Denies dyspepsia, Denies heartburn, Denies diarrhea, Denies loose stools, Denies nausea, Denies odynophagia and Denies vomiting Reports no additional complaints Musc Reports no additional complaints Neuro Reports no additional complaints Psych Reports no additional complaints Endo Reports no additional complaints Physical Exam Vital Signs: Last Vital Signs Pulse 68 06/13/25 11:37 BP 150/60 H 06/13/25 11:37 Pulse Ox 100 06/13/25 11:37 Oxygen Delivery Method Room Air 06/13/25 11:37 BMI result Body Mass Index 38.8 Assessment & Plan Assessment & Plan (1) GERD (gastroesophageal reflux disease): Code(s): K21.9 - Gastro-esophageal reflux disease without esophagitis Category: Medical Qualifiers: Esophagitis presence: without esophagitis Qualified Code(s): K21.9 - Gastro-esophageal reflux disease without esophagitis (2) Tubular adenoma of colon: Comment: June 2018 5 years Code(s): D12.6 - Benign neoplasm of colon, unspecified Category: Medical Plan Patient denies any GI, cardiac or respiratory symptoms.? On omeprazole for reflux. Patient reports that works well. Denies any issues with anesthesia in the past.? Denies any history of sleep apnea.? No history infectious diseases in the past or present.? Not on any anticoagulation therapy.? No family history of colon cancer.? Patient denies melena, hematochezia, unintentional weight loss or ribbon like stools.? Discussed at length the pre-procedure,? prep, diet & medications as well as what to expect prior, during and after the procedure.?? Stressed the importance of good bowel prep.? Recommended the use of Vaseline or Calmoseptine OTC & baby wipes with bowel movements to promote comfort.? ?Patient verbalizes understanding and agrees to plan of care.? He was given the opportunity to ask questions and all questions answered.? We will see him after the procedure.? Orders: Referrals GI Procedure Notification Z12.11 - Encounter for screening for malignant neoplasm of colon Medications: New bisacodyl (Dulcolax (bisacodyl)) take 4 tabs at noon the day before your colonoscopy 20 mg (4 x 5 mg) PO ONCE 4 tabs 0RF constipation 1 day Z12.11 - Encounter for screening for malignant neoplasm of colon polyethylene glycol 3350 (Miralax) As directed by gastroenterology department at [facility] 238 grams PO ONCE 238 grams 0RF Z12.11 - Encounter for screening for malignant neoplasm of colon Coding Level of Care Code New Pt Level 3 (67826) Diagnoses Gastroesophageal reflux disease without esophagitis K21.9 Esophagitis presence: without esophagitis Tubular adenoma of colon D12.6 Time Spent (min) 40 Comment 30 minutes spent with patient and additional 10 minutes spent reviewing his records
[2025-06-13 11:37] VITALS: BP 150/60; PULSE 68; O2SAT 100; BMI 38.8
== END 2025-06-13 12:30 | disposition home or self-care (01) ==
LOC: HO.HGI 11:32
PROVIDERS: PCP Internal Medicine; Visit Provider Nurse Practitioner Family
DX: K21.9 Gastro-esophageal reflux disease without esophagitis (principal); D12.6 Benign neoplasm of colon, unspecified
CPT/HCPCS: 99203

== ENCOUNTER → 2025-06-13 11:31 | Outpatient (BNVA) | payer MEDICARE, MEDICAID, SELFPAY | PROVIDERS: PCP Internal Medicine; Visit Provider Nurse Practitioner Family | DX: K21.9 Gastro-esophageal reflux disease without esophagitis (principal); D12.6 Benign neoplasm of colon, unspecified; Z12.11 Encounter for screening for malignant neoplasm of colon | CPT/HCPCS: 99202 ==

== ENCOUNTER 2025-07-14 13:54 | Outpatient (AMB) | payer MEDICARE, MEDICAID, SELFPAY ==
--- NOTE | 2025-07-14 14:24 | AM.OFFVISNUR ---
Intake Visit Reasons: B12 Shot Allergies No Known Allergies (No Known Allergies*) Allergy (Verified 06/04/25 10:20) Office Meds cyanocobalamin (vitamin B-12) 1,000 mcg/mL injection solution Performing Provider: Veronique Hare MD [facility] [place] [facility] Administered by: Erica Carlton LPN on 07/14/25 14:24 Dose Route Admin Location Dispensed Lot Number Expiration Date [facility] Supervisory Investigative Specialist 1,000 mcg IM left deltoid 1 mL [id number] 08/13/25 29561-252-31 [employer] Total Dispensed Waste 1 mL 0 % Assessment & Plan Assessment & Plan Orders: Orders AMB Vitamin B12 Injection Patient Supplied Today E53.8 - Deficiency of other specified B group vitamins Coding
== END 2025-07-14 14:25 | disposition home or self-care (01) ==
LOC: HO.HMCH 13:54
PROVIDERS: PCP Internal Medicine; Visit Provider Internal Medicine
DX: E53.8 Deficiency of other specified B group vitamins (principal)

== ENCOUNTER → 2025-07-14 13:54 | Outpatient (BNVA) | payer MEDICARE, MEDICAID, SELFPAY | PROVIDERS: PCP Internal Medicine; Visit Provider Internal Medicine | DX: E53.8 Deficiency of other specified B group vitamins (principal) | CPT/HCPCS: 96372; J3420 ==